=== PATIENT | female | born 1945 | race Caucasian/White ===

== ENCOUNTER → 2018-03-01 12:32 | Outpatient (CLI) | payer MEDICARE, OTHER, SELFPAY ==
--- NOTE | 2018-03-01 12:36 | ECHOD_ITS ---
Reason For Study: dyspnea/SOB Procedure This was a 2D Doppler, Color Flow transthoracic echocardiogram. Exam performed in department. Left Ventricle Normal size and thickness. The estimated ejection fraction is 65 %. Normal diastology for age. No regional wall motion abnormalities noted. Right Ventricle Normal size and thickness. Normal systolic function. Atria Normal left atrium. Normal right atrium. Normal atrial septum. Mitral Valve The mitral valve is structurally normal. No prolapse or stenosis seen. Mild (1+) posteriorly directed mitral valve insufficiency. Tricuspid Valve Normal tricuspid valve. Mild (1+) tricuspid valve insufficiency. Right ventricular systolic pressure estimated to be 29 mmHg. Aortic Valve Trisinus/trileaflet aortic valve. Mild diffuse aortic valve thickening. There is no aortic stenosis. Pulmonic Valve Normal pulmonic valve. Great Vessels Normal aortic root. Normal arch. Normal inferior vena cava. Inferior vena cava collapse with sniff. Pericardium/Pleural No pericardial effusion. MMode/2D Measurements & Calculations LVIDd: 4.6 cm IVSd: 0.94 cm Ao root diam: 2.7 cm LVIDs: 2.9 cm LVPWd: 0.95 cm LA dimension: 3.5 cm RVDd: 2.3 cm FS: 37.8 % LAV(MOD-bp): 49.1 ml LA A4 area: 16.8 cm2 RA A4 area: 13.9 cm2 LAV(MOD-bp) Indexed: 32.1 ml/m2 LAV(MOD-sp2): 44.2 ml LAV(MOD-sp4): 48.9 ml Doppler Measurements & Calculations Lat Peak E' Thierry: 10.5 cm/sec Med Peak E' Thierry: 8.7 cm/sec MV V2 max: 119.6 cm/sec MV max P.7 mmHg MV V2 mean: 60.0 cm/sec MV mean P.7 mmHg MV V2 VTI: 32.9 cm Ao V2 max: 142.0 cm/sec LV V1 max: 91.0 cm/sec PA V2 max: 82.6 cm/sec Ao max P.7 mmHg LV V1 max P.3 mmHg TR max thierry: 253.1 cm/sec TR max P.7 mmHg Interpretation Summary The estimated ejection fraction is 65 %. Normal diastology for age. Mild (1+) posteriorly directed mitral valve insufficiency. Mild (1+) tricuspid valve insufficiency. Right ventricular systolic pressure estimated to be 29 mmHg. There is no comparison study available. Ordering Physician: Ayo Pineda Referring Physician: NO PCP Performed By: Cristina Adam RDCS, RVT
== END ==
PROVIDERS: Visit Provider Internal Medicine Cardiovascular Disease
DX: R06.02 Shortness of breath (principal); M06.9 Rheumatoid arthritis, unspecified
CPT/HCPCS: 93306

== ENCOUNTER → 2018-03-02 12:04 | Outpatient (CLI) | payer MEDICARE, OTHER, SELFPAY ==
--- NOTE | 2018-03-02 12:49 | STE_ITS ---
Reason For Study: Dyspnea; Atrial Fibrillation Stress Results Protocol: Margarito Protocol Maximum Predicted HR: 149 bpm Target HR: 127 bpm% Max imum Predicted HR: 105 % DurationHeart Rate Stage (mm:ss) (bpm) BPCom ment Baseline 67 120/82 No Chest Pain Margarito Protocol Stage I 3:00 11 6 136/70No Chest Pain Margarito Protocol Stage II 3:00 13 1 156/78No Chest Pain; Mild Dyspnea Margarito Protocol Stage III 2:00 15 7 160/72No Chest Pain; Moderate Dyspnea Recovery 83 118/70 No Chest Pain Stress Duration: 8:00 mm:ss Maximum Stress HR: 157 bpmM ETS: 10 Baseline Echocardiogram Findings The estimated ejection fraction is 60 %. Stress Echo Wall motion Data Resting WMIntermediate WMStress WM Resting Wall Motion Wall Motion Stress No regional wall motion Mid-Anterior : Mildly abnormalities noted. hypokinetic. EKG Data Normal intervals are noted. The patient exercised according to the regular Margarito protocol for a total duration of 8:00. The maximum heart rate attained was 160 beats per minute. This was 107% of maximum predicted heart rate. The patient exercised into stage 3 of the Margarito protocol. The stress ECG displays diffuse abnormal ST segments. No clinical angina was noted. Interpretation Summary The estimated ejection fraction is 60 %. Abnormal, adequate, treadmill echocardiogram. Positive for ischemia by EKG and echocardiographic criteria. No anginal symptoms noted. Rare PVCs and ventricular couplets noted during exercise. The patient developed [address] segment depression along the inferior lateral leads at peak exercise which normalized by about 59 seconds into recovery. In addition the patient appeared to have mid anterior hypokinesis seen in 3 views on echocardiography. Test was terminated did due to dyspnea. Final LVEF around 65%. Ordering Physician: Ayo Pineda Referring Physician: Ayo Pineda Performed By: Heath Richmond RCS
[2018-03-02 13:23] LABS: AST(SGOT) 22 U/L (15-37); Alanine Aminotransfer ALT/SGPT 27 U/L (13-56); Albumin, Serum 3.5 g/dL (3.2-5.0); Alkaline Phosphatase 65 U/L (45-117); Bilirubin, Direct 0.18 mg/dL (0.00-0.30); Cholesterol 185 mg/dL (200); Globulin 3.7 g/dL (2.2-4.2); High Density Lipoprotein 55 mg/dL; Protein, Total 7.2 g/dL (6.4-8.2); Thyroid Stim Hormone (TSH) 1.19 uIU/mL (0.358-3.74); Triglycerides 100 mg/dL; Very Low Density Lipoprotein 20 mg/dL (5-40)
== END ==
PROVIDERS: Visit Provider Internal Medicine Cardiovascular Disease
DX: I48.91 Unspecified atrial fibrillation (principal); E78.5 Hyperlipidemia, unspecified; R06.02 Shortness of breath
CPT/HCPCS: 36415; 80061; 80076; 84443; 93017; 93350

== ENCOUNTER 2018-03-05 10:16 | Observation (INO) | payer MEDICARE, OTHER, SELFPAY ==
--- NOTE | 2018-03-03 15:15 | RAD_ITS ---
STUDY: X-RAY CHEST REASON FOR EXAM: Female, 72 years old. Abnormal stress test. Preop TECHNIQUE: Frontal and lateral views of the chest. COMPARISON: None. FINDINGS: The lungs are clear and expanded. There is no demonstrated pleural abnormality. Normal size heart. Normal mediastinum and celia. Normal visualized pulmonary arteries. Normal visualized aortic arch and descending thoracic aorta. There are diffuse degenerative changes of the visualized thoracic spine. Normal visualized ribs, clavicles, and shoulders. There is no demonstrated abnormality of the visualized soft tissue structures of the upper abdomen. RAD/Chest PA and Lateral IMPRESSION: No acute chest disease. Electronically Signed: Gume Crenshaw MD at 15:07 EDT , Service support ,
[2018-03-03 15:16] LABS: Hematocrit 38.7 % (37-47); Hemoglobin 13.1 g/dl (12.0-15.0); Mean Corp Hgb Conc 33.9 g/gl (32-36); Mean Corpuscular Hgb 32.2 pg (27.0-32.0); Mean Corpuscular Volume 95.1 fL (81-99); Mean Platelet Vol. 9.8 fl (6.2-12.0); Platelet Count 312 K/mm3 (150-450); RBC Distribution Width CV 13.8 % (11.6-14.6); Red Blood Count 4.07 M/mm3 (4.2-5.4); White Blood Count 7.1 K/mm3 (4.4-11.0)
[2018-03-03 15:17] LABS: Prothrombin Time (Protime)PT. 13.5 SECONDS (11.7-14.9)
[2018-03-03 15:18] LABS: Partial Thromboplast Time 28.7 Seconds (24.1-36.2)
[2018-03-03 15:25] LABS: Scan Indicated on CBC? Y/N NO
[2018-03-03 15:37] LABS: Anion Gap 9 (5-15); BUN 19 mg/dL (7-18); BUN/Creat Ratio 25.5 RATIO (10-20); Calcium,Total 9.3 mg/dL (8.5-10.1); Chloride 106 mmol/L (98-107); Creatinine, Serum 0.75 mg/dL (0.55-1.02); EST Glomerular Filtration Rate 81 mL/min (>60); Est Glom Filt Rate - Afr Amer 98 mL/min (>60); Glucose 90 mg/dL (74-106); Sodium Level 142 mmol/L (136-145)
[2018-03-04 08:25] VITALS: BMI 25.6
[2018-03-05] VITALS (22 sets, daily range): BP systolic 97–151; BP diastolic 40–81; PULSE 55–75; RESP 16–24; TEMP 36.3–37.1; O2SAT 95–99; BMI 26.4; BMI 25.6
--- NOTE | 2018-03-05 10:26 | CL.I_ITS ---
Patient Name: JIM MAN Study Date: 03/05/2018 Performing: Ayo Pineda MD Ht: 59.05 inches 150 cm : 1945 Wt: 127.87 lbs 58 kg Age: 72 Gender: female BSA: 1.53 Amended PROCEDURE(S) PERFORMED EJ42-HGT/COR/LV CLINICAL PROFILE AND CO-MORBIDITIES Indications: New Onset Angina <= 2 months Heart Failure: None Stress/Imaging Stress Echocardiogram: Yes Result: Positive Intermediate Risk Stress Echocardiogra m: Positive Intermediate Risk Angina Classification Anginal Classification w/in 2 Weeks: CCS III CAD Presentations: Unstable angina. Comorbidities/Risk Factors: Hypertension Dyslipidemia CONCLUSIONS Single vessel CAD of the LAD and DIAG#1 Normal LV size, wall motion,and systolic function Successful PTCA/JENNIFER of the mid LAD with a 2.25 x 12 Promus Synergy, post dilated proximally with a 2. 5 x 8 NC, followed just distal to stent with another 2.25 x 12 Promus Synergy; 85%-->0%, no dissectio n. Successful PCI with PTCA to the ostial DIAG#1 with a 1.5 and 2.0 Emerge balloon; 85%-->50%, slight re trograde dissection that does not affect flow. No additional stenting performed due to AMY III flow , lack of angina and acute angle of DIAG branch. Successful Mynx closure RECOMMENDATIONS Referred for immediate PCI Highly recommend quitting all tobacco products Follow up with primary sleep lab technologist Risk factor modification ASA Indefinitley Plavix for at least 12 months Routine post interventional care Refer for Outpatient Cardiac Rehab Manual sheath removal per protocol Pt will need to postpone Gyne surgery at least 6 months, preferably 1 year. DESCRIPTION OF PROCEDURE The patient arrived to the procedure lab. The risks and benefits of the procedure as well as a full d escription of our services here and lack of surgical backup were fully explained to the patient and/o r their significant other prior to the catheterization. The Timeout was completed, verifying the john ect patient and procedure. The patient's procedural site was prepped and draped in the usual fashion. Local anesthetic was given subcutaneously to right groin region with Lidocaine 2%. Using a modified Seldinger technique, arterial access was obtained via the right femoral artery, a 4Fr sheath was inse rted. Left Coronary Artery selective angiography was performed in multiple views using a 4 Fr. JL5 c atheter. Right Coronary Artery selective angiography was then performed in multiple views using a 4 F r. 3DRC catheter. Left Ventriculography was performed in ENCINAS projection using a 4 Fr. Pigtail cathete r. LV to AO pullback pressures were then recorded Arterial sheath was exchanged for a 6 Fr Sheath. EBU 3.5 Guide catheter was inserted and engaged into the LCA. BMW Guide wire was advanced to the LAD Angiogram performed pre balloon dilatation. emerge 2 .00x8 Balloon catheter was inserted. PTCA balloon inflated at 8 atms for 10 secs. Angiogram performed post balloon dilatation. BMW Guide wire was advanced to the 1st Diagonal. emerge 2.00x8 Balloon cath eter was inserted. PTCA balloon inflated at 6 atms for 7 secs. PTCA balloon inflated at 6 atms for 11 secs. Angiogram performed post balloon dilatation. synergy 2.25x12 Drug Eluting stent was inserted. Angiogram performed post stent deployment. nc emerge 2.50x8 Balloon catheter was inserted. PTCA ballo on inflated at 12 atms for 10 secs. Angiogram performed post balloon dilatation. synergy 2.25x12 Drug Eluting stent was inserted. 1st BMW Guide wire was repositioned to the 1st Diagonal Angiogram perfor med post stent deployment. emerge 2.00x8 Balloon catheter was inserted. emerge push 1.50x8 Balloon ca theter was inserted. PTCA balloon inflated at 8 atms for 14 secs. Angiogram performed post balloon di latation. Contrast was injected through the sheath and the Right Iliac and Femoral artery were assess ed for possible closure device. The arterial sheath was pulled and a Mynx closure device was deploye d for hemostasis CORONARY ANGIOGRAPHY DOMINANCE: Right Dominant LEFT HEART ASSESSMENT Left Ventricular Ejection Fraction: by LV Gram 65 % Normal Left Ventricular systolic function Normal Left Ventricular End Diastolic Pressure Normal LV wall motion LEFT MAIN: No significant disease noted LEFT ANTERIOR DECENDING ARTERY: PROX LAD: Mild luminal irregularities less than 30%, Moderate calcification MID LAD: 85 % Stenosis DIAGONAL 1: Ostial - 85 % Stenosis CIRCUMFLEX ARTERY: No significant disease noted RIGHT CORONARY ARTERY: Angiographically normal INTERVENTION INFORMATION LESION SITE: LAD (Mid) Lesion Complexity: High/C, lesion at bifurcation: Yes, thrombus present: No, lesion length: 24 mm, cu lprit lesion: Yes Pre Stenosis: 85 % Pre intervention AMY flow: 3 PROCEDURE: Drug Eluting Stent with pre and post dilatation Post Stenosis: 0 % Post intervention AMY flow: 3 Lesion Devices: Aguilar .014 BMW [place] Straight 190cm Medtronic 6 Fr EBU3.5 100cm Guide Catheter Sriram Sci EMERGE MR 2.00x08 BALLOON Sriram Sci Synergy MR JENNIFER 2.25x12 Sriram Sci NC EMERGE MR 2.50x08 BALLOON Sriram Sci Synergy MR JENNIFER 2.25x12 LESION SITE: 1st Diagonal (Ostial) Lesion Complexity: High/C, lesion at bifurcation: Yes, thrombus present: No, lesion length: 8 mm, cul prit lesion: No Pre Stenosis: 85 % Pre intervention AMY flow: 3 PROCEDURE: Balloon Angioplasty Post Stenosis: 50 % Post intervention AMY flow: 3 Lesion Devices: Sriram Sci EMERGE MR 2.00x08 BALLOON Aguilar .014 BMW [place] Straight 190cm Sriram Sci EMERGE PUSH MR 1.50x08 BALLOON COMPLICATIONS No Complications PROCEDURE MEDICATIONS Versed 1 mg IV Oxygen: 2 L/min via nasal cannula Heparin 5000 unit(s) IV 03/05/2018 09:30:39 Nitro 200 mcg IC 03/05/2018 09:20:39 Nitro 200 mcg IC 03/05/2018 09:20:39 Nitro 200 mcg IC 03/05/2018 09:37:20 Nitro 200 mcg IC 03/05/2018 09:50:40 IV Bolus: .9 NaCl 300ml total 03/05/2018 09:32:11 SUMMARY OF HEMODYNAMIC DATA Time AIR REST ECG 08:11:45 AO 130/62 (92) SA 09:18:00 LV 110/4, 14 09:26:33 LV 112/4, 11 09:26:40 LV 106/5, 14 09:27:57 LVp 109/3, 14 09:28:01 AOp 114/59 (82) 09:28:06 Signed By Ayo Pineda MD On 03/05/2018 10:26:20 Ayo Pineda MD
[2018-03-05 10:36] LABS: ACT Activated Clotting Time 186 sec (74-137)
--- NOTE | 2018-03-05 10:41 | EKG12_ITS ---
Test Reason : POST PCI Blood Pressure : / mmHG Vent. Rate : 056 BPM Atrial Rate : 056 BPM P-R Int : 142 ms QRS Dur : 078 ms QT Int : 456 ms P-R-T Axes : 061 053 042 degrees QTc Int : 440 ms Sinus bradycardia Low voltage QRS Borderline ECG Confirmed by DARY PAZ, VAMSI ([id number]), marketing editor CHAS MERCEDES ([id number] on 03/12/2018 3:02:28 PM Referred By: Ayo Pineda Confirmed By:VAMSI FOOTE MD
[2018-03-05] MEDS: 0.9% Normal Saline 1,000 ML 150 ML IV (11:21)
--- NOTE | 2018-03-05 11:23 | CRPHASE1 ---
Patient Data/Charges Stamp Analyst:: Ayo Pineda Risk Factors/Lifestyle Smoking Status: Never smoker Hx Hypertension: Yes Hx Diabetes Mellitus Type 1: No Hx Diabetes Mellitus Type 2: No Hx Dyslipidemia: No Hx Obesity: No Height: 1.5 m Weight:: 57.6 kg BMI: 25.6 Post-Menopausal: Yes Family History: Family History (Last Reviewed 02/16/18 @ 11:09 by Elvira Almendarez) Father CAD (coronary artery disease) Mother Cancer Past Cardiac Illness: Arrhythmias - a fib Phase I Education Given On:: [place], Nutrition, Antiplatelet medication, CHF, Smoking cessation, Diabetes - Type I, Diabetes - Type II Issues Affecting Care:: None Knowledge of Condition:: Yes Medical/Surgical History [place]:: No Angina:: Yes CAD:: Yes Pulmonary:: No COPD:: No Asthma:: No Diabetes:: No Dyslipidemia:: Yes Arrhythmias:: Yes - history of a fib PE:: No DVT:: No PVD:: No Arthritis:: Yes - rheumatoid Cancer:: No Renal:: No Thyroid:: No Depression:: No Anxiety:: No PTCA:: Yes ICD:: No Pacemaker:: No Discharge/Home/Social Eval Marital Status:
--- NOTE | 2018-03-05 11:27 | CRPHASE1_ITS ---
Patient Data/Charges Pin Drafter Operator:: Ayo Pineda Risk Factors/Lifestyle Smoking Status: Never smoker Hx Hypertension: Yes Hx Diabetes Mellitus Type 1: No Hx Diabetes Mellitus Type 2: No Hx Dyslipidemia: No Hx Obesity: No Height: 1.5 m Weight:: 57.6 kg BMI: 25.6 Post-Menopausal: Yes Family History: Family History (Last Reviewed 02/16/18 @ 11:09 by Elvira Almendarez) Father CAD (coronary artery disease) Mother Cancer Past Cardiac Illness: Arrhythmias - a fib Phase I Education Given On:: [place], Nutrition, Antiplatelet medication, CHF, Smoking cessation, Diabetes - Type I, Diabetes - Type II Issues Affecting Care:: None Knowledge of Condition:: Yes Medical/Surgical History [place]:: No Angina:: Yes CAD:: Yes Pulmonary:: No COPD:: No Asthma:: No Diabetes:: No Dyslipidemia:: Yes Arrhythmias:: Yes - history of a fib PE:: No DVT:: No PVD:: No Arthritis:: Yes - rheumatoid Cancer:: No Renal:: No Thyroid:: No Depression:: No Anxiety:: No PTCA:: Yes ICD:: No Pacemaker:: No Discharge/Home/Social Eval Marital Status:
--- NOTE | 2018-03-05 11:30 | CRPH1.INST_ITS ---
General Education CAD and cardiac anatomy and function:: Not instructed Explanation of diagnoses and procedures:: Not instructed Sign/Symptoms of [place]:: Not instructed Antiplatelet therapy: Needs reinforcement Proper use of NTG-SL: Not instructed Emergency procedures and activation of EMS: Not instructed Compliance of all prescribed medications: Needs reinforcement, Not instructed Smoking Nicotine/Smoking Response Code:: Not instructed Dyslipidemia Patient Dyslipidemia Risk Factors Are:: Total Cholesterol - 185, Triglycerides - 100, HDL - 55, LDL - 110 Dyslipidemia Response Code:: Not instructed Overweight/Obesity Patient Overweight/Obesity Risk Factors Are:: BMI Normal [24-29 & > 65 years old ] Overweight/Obesity:: Not instructed Hypertension Patient Hypertension Risk Factors Are:: No documented hx of HTN Heart Disease Heart Disease Response Code:: Not instructed Diabetes Patient Diabetes Risk Factors Are:: No documented hx of diabetes Metabolic Syndrome Metabolic Syndrome Response Code:: Not instructed Sedentary Sedentary Response Code:: Not instructed Stress Stress Response Code:: Not instructed
--- NOTE | 2018-03-05 15:45 | PCM.DC.CCA ---
Discharge Diet: Low fat/ Low Cholesterol Discharge Activity: Return to Normal Activity May shower in (days): 1 Lifting Restrictions: 10 pounds and also avoid any pushing or pulling for 3 days after your test. Call your doctor if your incision/area has: Continuous Slow Oozing, Sudden Increased Bleeding, Increased Pain/ Swelling, Foul Smelling Discharge, Swelling at the incision site Call your doctor if you observe: Fever of 101 or Higher, Shortness of breath, Chest pain Remove Dressing in (days):: 1 Additional Dressing/Incision Instructions:: Keep the dressing (bandage) on until the next morning. You may then shower, but do not take a tub bath for 5 days after your test. It is normal to have some tenderness and discomfort at the puncture site. Sometimes bruising also occurs. However, if pain, numbness, or coldness occurs below the puncture site (in your leg, toes, arms or fingers) call your doctor at once. You may have a small, marble sized knot at the puncture site. This is normal. Do not rub it. It will go away in 4-6 weeks. Bleeding can occur from the area where the puncture was done. Blood may spurt or drip from the site. If blood spurts, apply pressure right away to stop bleeding and call 911. Although rare, bleeding into the tissue (hematoma) can also occur. If this happens, a large, firm area goose egg under the skin will appear. If any of these occur, lie down as flat as you can and have someone apply firm pressure to the cath site with a gauze pad or a clean washcloth for 10-15 minutes. Call 911 or go to the Emergency Department. Additional Instructions: We will rediscuss surgical clearance in 6 months. We would prefer you to stay on the plavix for at least one year before holding it for any reason At your next OV we will talk about cardiac rehab. Allergies/Adverse Reactions: Allergies Sulfa (Sulfonamide Antibiotics) Allergy (Unknown, Verified 02/16/18 11:12) unknown Medications to take at Discharge aspirin 81 mg tablet,delayed release 81 mg PO DAILY 02/12/18 folic acid 1 mg tablet 1 mg PO DAILY 02/12/18 methotrexate sodium 2.5 mg tablet 15 mg PO TU tab 02/12/18 estradiol 0.01% (0.1 mg/gram) vaginal cream 1 g VAGINAL DAILY 02/16/18 metoprolol tartrate 25 mg tablet 25 mg PO BID #60 tab 02/16/18 prednisone 5 mg tablet 5 mg PO DAILY PRN 02/16/18 rosuvastatin 20 mg tablet 20 mg PO .COMPLEX 02/16/18 Estradiol [Estrace Vaginal Cream] 1 gm VAGINAL DAILY cream.appl 03/05/18 clopidogrel 75 mg tablet 75 mg PO .COMPLEX #30 tab 03/05/18 Orders to be completed after discharge: Phase II, Outpatient Cardiac Rehab Location: None Selected Primary Care Physician: Care Physician,No Primary [Primary Care Provider] - Test Results: Test results from this visit will be discussed in further detail at your follow-up appointment, if applicable. Please Follow Up With: Ayo Pineda MD When: 03/19 at 11AM Proposed Discharge Date: 03/06/18 Cardiac Rehabilitation Info Cardiac Rehabilitation Program Information: Cardiac Rehabilitation is important for patients like you who are recovering from a heart problem. Cardiac rehabilitation programs are recognized as integral to the continued care of the patient with coronary heart disease. The cardiac rehabilitation program is designed to optimize a patient's physical, psychological, and social functioning. Health child day care teacher work in cardiac rehabilitation programs and assist you with getting the treatments you need to get stronger and healthier - like exercise, healthy eating habits, and medications. Cardiac rehabilitation has been show to help people with heart problems live longer and have better life enjoyment than people who do not go to cardiac rehabilitation. Please contact the Cardiac Rehabilitation Program at [facility] at in two weeks if you have not heard from them.
--- NOTE | 2018-03-05 15:48 | DCINST_ITS ---
Discharge Diet: Low fat/ Low Cholesterol Discharge Activity: Return to Normal Activity May shower in (days): 1 Lifting Restrictions: 10 pounds and also avoid any pushing or pulling for 3 days after your test. Call your doctor if your incision/area has: Continuous Slow Oozing, Sudden Increased Bleeding, Increased Pain/ Swelling, Foul Smelling Discharge, Swelling at the incision site Call your doctor if you observe: Fever of 101 or Higher, Shortness of breath, Chest pain Remove Dressing in (days):: 1 Additional Dressing/Incision Instructions:: Keep the dressing (bandage) on until the next morning. You may then shower, but do not take a tub bath for 5 days after your test. It is normal to have some tenderness and discomfort at the puncture site. Sometimes bruising also occurs. However, if pain, numbness, or coldness occurs below the puncture site (in your leg, toes, arms or fingers) call your doctor at once. You may have a small, marble sized knot at the puncture site. This is normal. Do not rub it. It will go away in 4-6 weeks. Bleeding can occur from the area where the puncture was done. Blood may spurt or drip from the site. If blood spurts, apply pressure right away to stop bleeding and call 911. Although rare, bleeding into the tissue (hematoma) can also occur. If this happens, a large, firm area goose egg under the skin will appear. If any of these occur, lie down as flat as you can and have someone apply firm pressure to the cath site with a gauze pad or a clean washcloth for 10-15 minutes. Call 911 or go to the Emergency Department. Additional Instructions: We will rediscuss surgical clearance in 6 months. We would prefer you to stay on the plavix for at least one year before holding it for any reason At your next OV we will talk about cardiac rehab. Allergies/Adverse Reactions: Allergies Sulfa (Sulfonamide Antibiotics) Allergy (Unknown, Verified 02/16/18 11:12) unknown Medications to take at Discharge aspirin 81 mg tablet,delayed release 81 mg PO DAILY 02/12/18 folic acid 1 mg tablet 1 mg PO DAILY 02/12/18 methotrexate sodium 2.5 mg tablet 15 mg PO TU tab 02/12/18 estradiol 0.01% (0.1 mg/gram) vaginal cream 1 g VAGINAL DAILY 02/16/18 metoprolol tartrate 25 mg tablet 25 mg PO BID #60 tab 02/16/18 prednisone 5 mg tablet 5 mg PO DAILY PRN 02/16/18 rosuvastatin 20 mg tablet 20 mg PO .COMPLEX 02/16/18 Estradiol [Estrace Vaginal Cream] 1 gm VAGINAL DAILY cream.appl 03/05/18 clopidogrel 75 mg tablet 75 mg PO .COMPLEX #30 tab 03/05/18 Orders to be completed after discharge: Phase II, Outpatient Cardiac Rehab Location: None Selected Primary Care Physician: Care Physician,No Primary [Primary Care Provider] - Test Results: Test results from this visit will be discussed in further detail at your follow- up appointment, if applicable. Please Follow Up With: Ayo Pineda MD When: 03/19 at 11AM Proposed Discharge Date: 03/06/18 Cardiac Rehabilitation Info Cardiac Rehabilitation Program Information: Cardiac Rehabilitation is important for patients like you who are recovering from a heart problem. Cardiac rehabilitation programs are recognized as integral to the continued care of the patient with coronary heart disease. The cardiac rehabilitation program is designed to optimize a patient's physical, psychological, and social functioning. Health career coach work in cardiac rehabilitation programs and assist you with getting the treatments you need to get stronger and healthier - like exercise, healthy eating habits, and medications. Cardiac rehabilitation has been show to help people with heart problems live longer and have better life enjoyment than people who do not go to cardiac rehabilitation. Please contact the Cardiac Rehabilitation Program at [facility] at in two weeks if you have not heard from them.
[2018-03-05] MEDS: Atorvastatin Calcium 20 MG Tablet PO (20:46)
[2018-03-05] MEDS: Acetaminophen 325 MG Tablet 650 MG PO (20:46)
[2018-03-05] MEDS: Metoprolol Tartrate 25 MG Tablet PO (20:46)
[2018-03-06] VITALS (12 sets, daily range): BP systolic 98–154; BP diastolic 43–79; PULSE 57–97; RESP 13–24; TEMP 36.2–36.9; O2SAT 93–100
[2018-03-06 04:58] LABS: Hematocrit 33.5 % (37-47); Hemoglobin 11.3 g/dl (12.0-15.0); Mean Corp Hgb Conc 33.7 g/gl (32-36); Mean Corpuscular Hgb 32.5 pg (27.0-32.0); Mean Corpuscular Volume 96.3 fL (81-99); Mean Platelet Vol. 9.7 fl (6.2-12.0); Platelet Count 251 K/mm3 (150-450); RBC Distribution Width SD 47.2 fl (35.1-43.9); Red Blood Count 3.48 M/mm3 (4.2-5.4); White Blood Count 7.6 K/mm3 (4.4-11.0)
[2018-03-06 04:59] LABS: Scan Indicated on CBC? Y/N NO
[2018-03-06 05:11] LABS: Anion Gap 7 (5-15); BUN 13 mg/dL (7-18); BUN/Creat Ratio 20.7 RATIO (10-20); Calcium,Total 8.4 mg/dL (8.5-10.1); Chloride 112 mmol/L (98-107); Creatinine, Serum 0.63 mg/dL (0.55-1.02); EST Glomerular Filtration Rate 99 mL/min (>60); Est Glom Filt Rate - Afr Amer 120 mL/min (>60); Estimated Creatinine Clearance 46.92 ml/min; Glucose 105 mg/dL (74-106); Potassium 4.4 mmol/L (3.5-5.1); Sodium Level 144 mmol/L (136-145)
[2018-03-06] MEDS: Folic Acid 1 MG Tablet PO (07:52)
[2018-03-06] MEDS: Metoprolol Tartrate 25 MG Tablet PO (09:44)
[2018-03-06] MEDS: Aspirin E.C. 81 MG Tablet PO (09:44)
[2018-03-06] MEDS: Clopidogrel Bisulfate 75 MG Tablet PO (09:44)
--- NOTE | 2018-03-06 09:52 | PCM.DC.BLA ---
Discharge Summary Date of Admission: 03/05/18 Date of Discharge: 03/06/18 Summary: Final diagnoses: 1. Coronary artery disease Procedures performed: 1. Coronary angiography 2. Drug-eluting stent placement to the mid left anterior descending artery Hospital course: Patient had an abnormal stress test. She was therefore brought for coronary angiography. Coronary angiography revealed tight left anterior descending artery lesion. Subsequently percutaneous intervention was performed with placement of 2 drug-eluting stents. Excellent results were noted. Overnight the patient did well. No angina or shortness of breath. Her groin appears stable with no hematoma. Vital signs are stable. Medications: Please see discharge instructions. Final disposition: Discharged home in stable condition.
--- NOTE | 2018-03-06 10:41 | EKG12_ITS ---
Test Reason : AM EKG Blood Pressure : / mmHG Vent. Rate : 060 BPM Atrial Rate : 060 BPM P-R Int : 134 ms QRS Dur : 082 ms QT Int : 440 ms P-R-T Axes : 061 049 030 degrees QTc Int : 440 ms Normal sinus rhythm Low voltage QRS Borderline ECG Confirmed by DARY PAZ, VAMSI ([id number]), manuscript editor CHAS MERCEDES ([id number]) on 03/12/2018 3:01:38 PM Referred By: Ayo Pineda Confirmed By:VAMSI FOOTE MD
== END 2018-03-06 10:31 | disposition home or self-care (01) ==
PROVIDERS: Admitting Provider Internal Medicine Cardiovascular Disease; Visit Provider Internal Medicine Cardiovascular Disease
DX: I25.110 Atherosclerotic heart disease of native coronary artery with unstable angina pectoris (principal); R94.39 Abnormal result of other cardiovascular function study; E78.5 Hyperlipidemia, unspecified; I10 Essential (primary) hypertension; M06.9 Rheumatoid arthritis, unspecified; Z79.899 Other long term (current) drug therapy; Z79.82 Long term (current) use of aspirin; I48.2 Chronic atrial fibrillation; Z23 Encounter for immunization
CPT/HCPCS: 36415; 71046; 80048; 85027; 85347; 85610; 85730; 92921; 92928; 93005; 93458; 96360; 96361; 99152; 99153; 99218; C1760; G0008; J7030; J7040; Q9967; 90686; C1725; C1769; C1874; C1887; C1894; C9600; G0378; G0379

== ENCOUNTER → 2018-03-19 12:08 | Outpatient (CLI) | payer MEDICARE, OTHER, SELFPAY ==
[2018-03-05 11:27] VITALS: BMI 25.6
[2018-03-19 12:37] LABS: Absolute Lymphocyte Count 2.52 X10^3/ul (0.83-4.51); Absolute Neutrophil Count 4.2 X10^3/uL (2.0-7.7); Basophil# 0.08 X10^3/uL; Eosinophil# 0.23 X10^3/uL; Hematocrit 37.5 % (37-47); Hemoglobin 12.4 g/dl (12.0-15.0); Lymphocyte # 2.52 X10^3/ul (4.0); Lymphocyte % 32.5 % (19-41); Mean Corp Hgb Conc 33.1 g/gl (32-36); Mean Corpuscular Volume 96.6 fL (81-99); Mean Platelet Vol. 9.7 fl (6.2-12.0); Monocyte# 0.69 X10^3/uL; Monocyte% 8.9 % (0-10); Neutrophil # 4.23 X10^3/uL (2.7-7.7); Neutrophil % 54.5 % (47-70); POSITIVE COUNT NO; POSITIVE DIFFERENTIAL NO; POSITIVE MORPHOLOGY NO; Platelet Count 337 K/mm3 (150-450); RBC Distribution Width CV 13.8 % (11.6-14.6); RBC Distribution Width SD 47.2 fl (35.1-43.9); Red Blood Count 3.88 M/mm3 (4.2-5.4); White Blood Count 7.8 K/mm3 (4.4-11.0)
== END ==
PROVIDERS: Referring Provider Physician Assistant Medical; Visit Provider Physician Assistant Medical
DX: R07.9 Chest pain, unspecified (principal)
CPT/HCPCS: 36415; 85025

== ENCOUNTER → 2018-03-23 12:26 | Outpatient (CLI) | payer MEDICARE, OTHER, SELFPAY ==
[2018-03-05 11:27] VITALS: BMI 25.6
--- NOTE | 2018-03-23 12:28 | RAD_ITS ---
STUDY: X-RAY CHEST REASON FOR EXAM: Female, 72 years old. Cough. TECHNIQUE: 2 views, PA and lateral projections. COMPARISON: Chest 03/03/2018. FINDINGS: No tubes identified. The lungs appear clear of active focal pulmonary consolidation, air bronchograms, large pleural effusion, pneumothorax or abnormally dilated pulmonary vascularity and also appear well expanded. There is no demonstrated pleural abnormality identified. Borderline enlarged heart, heart size may be mildly accentuated by mild rotation. Trachea near midline. Nonacute mediastinum and celia with numerous mostly subcarinal small calcified lymph nodes seen. Normal visualized pulmonary arteries. Normal visualized aortic arch and descending thoracic aorta. Nonacute visualized moderate to severe degenerative thoracic spine noted. Mild scoliosis apex right seen lower thoracic spine, may be positional. Normal visualized ribs, clavicles and shoulders. There is no demonstrated abnormality of the visualized soft tissue structures of the upper abdomen. No subdiaphragmatic free air seen grossly. RAD/Chest PA and Lateral IMPRESSION: Nonacute appearing x-ray examination of the chest. No finding of active focal pulmonary consolidation air bronchograms identified. Borderline cardiomegaly, heart size may be accentuated by mild rotation and scoliosis as described. Clinical correlation recommended. Electronically Signed: Carlos Sukhi, at 13:34 EDT Tel , Service support ,
== END ==
PROVIDERS: Referring Provider Physician Assistant Surgical; Visit Provider Physician Assistant Surgical
DX: R05 Cough (principal)
CPT/HCPCS: 71046

== ENCOUNTER → 2018-03-26 13:05 | Outpatient (CLI) | payer MEDICARE, OTHER, SELFPAY ==
[2018-03-05 11:27] VITALS: BMI 25.6
--- NOTE | 2018-03-26 13:08 | PCM.CR.ITP ---
General Information - General Information Admitting Diagnosis: PCI w/coronary stent 03/05/2018 - Education/Goals Barriers to Learning: Vision Impairment Individual Counseling: Initial Assessment: High Blood Pressure, Hypertension Cardiac Rehabilitation Goals: 1. Maintain the individual as the primary focus of care. 2. To improve the patient's quality of life. 3. Identification of cardiac risk factors and provide cardiac risk factor management. 4. Enhance the psychosocial status of the patient. 5. Reconditioning enough to allow the patient to resume customary activities. 6. Control symptoms of cardiac disease Scale for measuring improvement of personal goals: Enter appropriate number in Comments. 2 = Unchanged. 3 = Slightly Better. 4 = Moderate Improvement. 5 = Met my Goal Personal Goals: Initial Assessment: Improve energy level, Get back to work, or to resume activities faster, Improve knowledge of cardiac disease, Improve muscle strength and endurance, Control risk factors (learn risk factor modification) Exercise - Initial Assessment - Visit Date of Eval: 03/26/18 - established ITP start 03/29/2018 Session #:: 0 - Stages of Change Stages of Change:: Action - Exercise Prescription Mode:: Treadmill, Rower, NuStep Angina with exercise?: No Target Heart Rate:: 111-118 - Hypertension Do any of the following apply?: Yes, Medication Resting Blood Pressure:: 120/60 - Intervention Home Exercise/Activity Goal:: Moderate Exercise 30 min/day x 5 days/wk - Education Goals:: Warm-up, RPE ALINE Scale, S/S, Safe Exercise, Self-Monitoring - Exercise Program Goals Exercise Program Goals: Aerobic Activity >30 min Nutrition - Initial Assessment - Program Goals Nutrition Program Goals: LDL <70. Total Cholesterol <200. HDL >45. Triglycerides <150. HgbA1C <7%. BMI <25 - Visit Date of Assessment:: 03/26/18 - Stages of Change Stages of Change:: Action - Diabetes Diabetes:: No Insulin: No Do you monitor your blood sugar at home?: No - Weight Management Height: 5 ft Weight:: 128 lb Body Fat %:: 25 - Intervention Referral to dietitian:: No Referral to Diabetic Clinic:: No Will attend diet classes:: Yes - Education Gave educational materials for:: Healthy eating Tobacco - Initial Assessment - Program Goals Tobacco Program Goals: Complete smoking cessation. Attend education classes. Improve Knowledge Test score - Stage of Change Stages of Change:: Action - Learning Barriers Learning Barriers: Vision, Ready to Learn - Family Support Do you have family support?: Yes - Tobacco Use Tobacco Use: Non-smoker Do you use smokeless tobacco?: No - Intervention Smoking Cessation Referral:: No Education Schedule Given:: Yes - Education Gave educational material for:: Coronary artery disease, Risk factors, Sexuality, Medical compliance, Cardiac A&P, Angina signs & symptoms Psychosocial - Initial Assess - Target Goals Target Goals: Assess presence or absence of depression. Using a valid screening tool, maximizes coping skills. Positive support system - Stages of Change Stages of Change:: Action - Psychosocial Test Tool Used:: HANDS Depression Questionnaire - Intervention PS - Interventions: Yes Attend Stress Management Classes, Yes Uses Stress Management Skills, No Referral to Mental Health, No Referral to [facility] Case Management, No Referral to Physician - Education Gave educational materials for:: Coping techniques, Signs & symptoms of depression, Stress management, Relaxation techniques - Patient/Program Goal Preventative Medication(s):: Aspirin, Clopidogrel, Beta luisa, Statin/lipid - Assistive Devices Assistive Devices:: None Fall Risk Assessed:: Yes Patient Health Questionnaire Initial Assessment 1. Little interest or pleasure in doing things: Not at all 2. Feeling down, depressed, or hopeless: Not at all 3. Trouble falling or staying asleep, or sleeping too much: Not at all 4. Feeling tired or having little energy: Not at all 5. Poor appetite or overeating: Not at all 6. Feeling bad about yourself -- or that you are a failure or have let yourself or your family down: Not at all 7. Trouble concentrating on things, such as reading the newspaper or watching television: Not at all 8. Moving or speaking so slowly that other people could have noticed. Or the opposite - being so fidgety or restless that you have been moving around a lot more than usual: Not at all 9. Thoughts that you would be better off , or of hurting yourself in some way: Not at all How difficult have these problems made it for you to do your work, take care of things at home, or get along with other people?: Not difficult at all Total Score: 0 TRAY-Q SV Test - Statements CAD is a disease of the arteries in the heart: False Examples of risk factors for heart disease: True Angina is chest pain or discomfort: True The benefits of resistance training include: True Eating more meat and dairy products: False Anti-platelet medications such as aspirin are important: True The only effective way to manage stress: False An exercise warm-up slowly increases heart rate: True Prepared, processed foods usually have high sodium: True Depression is common after a heart attack: True The statin medications lower cholesterol: True To control blood pressure, lower the amount of sodium: True If someone gets chest discomfort during walking: False Transfats are partially hydrogenated vegetable oils: True Sleep apnea that is not treated increases the risk: False To control cholesterol, one should become a vegetarian: False Someone knows if he/she is exercising at the right level: True Diabetes cannot be prevented with exercise & health eating: False Stress is a large risk for heart attack: True A diet that can help lower blood pressure is rich in: True - Total Score Total Correct Responses: 20 Self-Efficacy Initial Assessment We would like to know how confident you are in doing certain activities. Please select your confidence level for:: Select your confidence level for the following using the scale 1-10 where 1 is not at all confident and 10 is totally confident. Your score is the average of all 6 responses. Fatigue: How confident are you that you can keep the fatigue caused by your disease from interfering with the things you want to do? Select Number: 7 Physical Discomfort or Pain: How confident are you that you can keep the physical discomfort or pain of your disease from interfering with the things you want to do? Select Number: 5 Emotional Distress: How confident are you that you can keep the emotional distress caused by your disease from interfering with the things you want to do? Select Number: 6 Other Symptoms or Health Problems: How confident are you that you can keep other symptoms or health problems from interfering with the things you want to do? Select Number: 4 Different Tasks and Activities: How confident are you that you can do the different tasks and activities needed to manage your health condition so as to reduce your need to see a doctor? Select Number: 5 Medication: How confident are you that you can do things other than just taking medication to reduce how much your illness affects your everyday life? Select Number: 6 Total Score:: 5 Nutrition Survey - Nutrition Survey Instructions Scoring Instructions: Scoring is as follows: Yes = 1 points. No = 0 point. Patient score that is >/=12 is considered to be at potential nutritional risk and could benefit from a referral to a registered dietitian. - Nutrition Survey Initial Have you lost >10 lbs over the past 2 months without trying?: No Are you following a special diet at home for diabetes, low fat, or low salt?: No Are you interested in meeting with a dietitian for help understanding your diet?: Yes Do you eat less than 3 meals a day?: Yes Do you eat fatty meats (suárez, sausage, ribs, etc), fried foods, desserts, large amounts of salad dressings, margarine, butter, or cheese most days?: No Do you have food allergies? [Enter types in comment field]: No Do you eat in restaurants more than 3 times a week?: Yes Do you season food with salt, seasoning salt, or garlic salt?: Yes Do you used canned, boxed, frozen meals, or soups, seasoning packets?: Yes Total Score:: 5
--- NOTE | 2018-03-26 13:09 | PCM.CR.HP2 ---
CR - History & Physical - General Arrival date:: 03/26/18 Arrival time:: 13:09 Date of Referral:: 03/19/18 Date of CR Evaluation:: 03/26/18 Referring Physician: Dr. Ayo Pineda Primary Diagnosis: PCI w/coronary stent placement - History of Present Cardiac Event Onset Date: Enter Onset Date of cardiac illnesses in Comment field below PTCA or coronary stenting:: Yes - 03/05/2018 Type of Symptoms:: intermittent chest pain, shortness ofbreath during activities. Cardiac testing reveiled abnormal stress echocardiogram and subsequent heart cath was performed. Interventions with present event:: Echo, Echo stress , and heart cath Were there any complications?: none - Medications Home Medications: Ambulatory Orders Medication Instructions Recorded folic acid 1 mg tablet 1 mg PO DAILY 02/12/18 methotrexate sodium 2.5 mg tablet 15 mg PO TU tab 02/12/18 estradiol 0.01% (0.1 mg/gram) 1 g VAGINAL DAILY 02/16/18 vaginal cream metoprolol tartrate 25 mg tablet 25 mg PO BID #60 tab 02/16/18 prednisone 5 mg tablet 5 mg PO DAILY PRN 02/16/18 rosuvastatin 20 mg tablet 20 mg PO .COMPLEX 02/16/18 Estradiol [Estrace Vaginal Cream] 1 gm VAGINAL DAILY cream.appl 03/05/18 clopidogrel 75 mg tablet 75 mg PO .COMPLEX #30 tab 03/05/18 Aspirin E.C. [Ecotrin] 81 mg PO DAILY tab 03/06/18 Atorvastatin Calcium [Lipitor] 20 mg PO QHS tab 03/06/18 nitroglycerin 0.4 mg sublingual 0.4 mg SUBLINGUAL Q5-15M PRN #25 03/19/18 tablet tab nitroglycerin 0.4 mg sublingual 0.4 mg SUBLINGUAL Q5-15M PRN #25 03/19/18 tablet tab azithromycin 250 mg tablet See Rx Instructions PO .COMPLEX #6 03/23/18 tab - Allergies Allergies/Adverse Reactions: Allergies Sulfa (Sulfonamide Antibiotics) Allergy (Unknown, Verified 03/23/18 12:17) unknown - Sleep Disorder Evaluation Hx of Sleep Apnea: No Do you snore loudly (louder than talking or can be heard through closed doors)?: No Do you often feel tired/ fatigued/ sleepy during daytime?: Yes Has anyone observed you stop breathing during sleep?: No History of Hypertension (for STOP score): Yes STOP Results: Positive Advanced Directives - Advanced Directives Power of Butadiene Convertor Operator: Yes Living Will: Yes Advance Directives Information Provided: No Advance Directives on File: Yes - Yes DNR Order?:: No Past Medical History - Past Medical Illness Medical History: Past Medical History (Last Reviewed 03/23/18 @ 12:18 by [place]) Chest pain (Acute) R07.9 Atherosclerotic heart disease of [place] coronary artery without angina pectoris (Chronic) Onset Date: 03/05/18 I25.10 JENNIFER to mid LAD with a 2.25 X 12 Promus Synergy, followed just distally with another 2.25 X 12 Promus Synergy; PCI to diagonal 1. Dyspnea on exertion (Acute) R06.09 Abnormal stress echo (Acute) R94.39 Rheumatoid arthritis (Chronic) M06.9 Hyperlipidemia (Chronic) E78.5 Atrial fibrillation (Chronic) I48.91 Meniere disease (Chronic) H81.09 - Past Surgical History Surgical History: Past Surgical History (Last Reviewed 03/23/18 @ 12:18 by [place]) Stented coronary artery (Chronic) Z95.5 JENNIFER to mid LAD with a 2.25 X 12 Promus Synergy, followed just distally with another 2.25 X 12 Promus Synergy; PCI to diagonal 1. History of carpal tunnel release of both wrists Onset Date: ~2012 Z98.890 - Family History Summary Family History: Family History (Last Updated 03/26/18 @ 13:14 by Gray Angeles, ACCOUNTING OFFICER, MEDICAL CONCIERGE, BS) Father CAD (coronary artery disease) Mother Cancer COPD (chronic obstructive pulmonary disease) Social History - Smoking History Smoking Status: Never smoker Hx Tobacco Use: No Hx Smoking Exposure: No - Alcohol Use Alcohol Usage: No - Substance Abuse Hx Substance Use: No - Occupation Occupation (List type of work in comments):: Retired - Hobbies, Recreation, Social Activities Hobbies: Sewing - knitting, Bingo and Shuffle Board., Other Recreational Activities: I am able to engage in all my recreational activities Social Environment - Status Marital Status: - Current Living Arrangements Living Environment:: Spouse - significant other - Children How many children do you have?: 2 Do any of your children live nearby?: No - both in [place] - Safety Do you feel safe in your surroundings?: Yes - Assistance Do you need any assistance at home?: none Review of Systems - Review of Systems Hints: Right click = Denies ([place]ash). Left click = Reports ([place]) Review of Present Symptoms: Reports: Shortness of Breath with Exertion - still occasionally gets short of breath, Fatigue, Heart Arrhythmia/Irregularities - chronic histopry of atrial fibrillation, Appetite - Normal, Sleep - Normal. Denies: Shortness of Breath at Rest, Dizziness/Lightheadedness, Appetite - Special Diet - Pain Is Patient Pain Free?: Yes Pain Location: none Pain Level: 0/10 Risk Factor Assessment - Chief Complaint Chief Complaint: Patient is a 72 yr old female patient who presented to Dr. Pineda for ongoing cardiac symptoms. She was examined and went through some cardiac testing and eventually had two stents and ballooning procedure done here at [facility]. - Vital Signs Temperature: 98.7 F Respiratory Rate: 16 Pulse Ox: 97 Blood Pressure: 120/60 Nailbeds:: pink - Pulse Pulse Rate: 59 - Hypertension Blood Pressure Sitting - Left Arm: 120/60 - Diabetes Nutrition Referral for Diabetes: No - Obesity Height: 5 ft Weight:: 128 lb Weight in Pounds: 128.0 lbs Weight Source: Standing Scale Body Mass Index (BMI): 25.0 Nutritional Referral for Obesity: No - Physical Inactivity Physical Inactivity: Recreational activity - walking dog a couple of miles a day. - Risk Stratification Risk Guidelines: Lowest Risk: Risk Factor for Smoking, Risk Factor for Dyslipidemia, Risk Factor for Diabetes, Risk Factor for Obesity, Risk Factor for Hypertension, Risk Factor for Sedentary Lifestyle, Risk Factor for Depression - For Smoking Smoking Risk Guidelines: Smoking Low Risk: None or quit greater than 6 months ago. Smoking Moderate Risk: Smoker or quit 6 months or less ago. Smoking High Risk: Smoker - For Dyslipidemia Dyslipidemia Risk Guidelines: Low Risk: Moderate Risk: High Risk: 15-25% fat 25.1-29% fat >/= 30% fat. <7% sat fat 7-9% sat fat >9% sat fat. <150 mg chol 150-299 mg chol >/= 300 mg chol. LDL <100 LDL 100-129 LDL >/= 130. Chol/HDL ratio <5.0 Chol/HDL ratio 5.0-6.0 Chol/HDL ratio >6.0. Triglycerides <100 Triglycerides 100-149 Triglycerides >/= 150 - For Diabetes Mellitus Diabetes Risk Guidelines: Diabetes Low Risk: HgA1c <6.5% and/or FBG <120. Diabetes Moderate Risk: HgA1c 6.6-7.9% and/or FBG 120-180. Diabetes High Risk: HgA1c >/= 8% and/or FBG >180 - For Obesity/Overweight Obesity/Overweight Risk Guidelines: Obesity Low Risk: BMI <25.0. Obesity Moderate Risk: BMI 25-29.9. Obesity High Risk: BMI >/= 30.0 - For Hypertension Hypertension Risk Guidelines: Hypertension Low Risk: Systolic <120 and Diastolic <80. Hypertension Moderate Risk: Systolic 120-139 and Diastolic 80-89. Hypertension High Risk: Systolic >/= 140 and Diastolic >/= 90 - For Sedentary Lifestyle Sedentary Lifestyle Risk Guidelines: Sedentary Lifestyle Low Risk: >/= 1,500 kcal/week. Sedentary Lifestyle Moderate Risk: 700-1,499 kcal/week. Sedentary Lifestyle High Risk: < 700 kcal/week - For Depression Depression Risk Guidelines: Depression Low Risk: Not clinically depressed. Depression Moderate Risk: Mildly depressed. Depression High Risk: Clinically depressed - Family History Family History: Family History (Last Updated 03/26/18 @ 13:14 by Gray Angeles, ACCOUNTING OFFICER, MEDICAL CONCIERGE, BS) Father CAD (coronary artery disease) Mother Cancer COPD (chronic obstructive pulmonary disease) Motivation - Motivation to Participate On a scale of 1 to 10, how prepared are you to commit to attending program?: 9 What do you see as barriers to successfully being able to complete the program?: getting used to a routine alarm clock! What do you see as the benefits of succesfully completing the program? In other words, what do you hope to get out of participating in the program?: getting better Are there issues you are dealing with that will interfere with completing the program?: none Do you have a spouse or signficant other, family or friends who will help support you to complete the program?: yes
--- NOTE | 2018-03-26 13:13 | CR.HP_ITS ---
CR - History & Physical - General Arrival date:: 03/26/18 Arrival time:: 13:09 Date of Referral:: 03/19/18 Date of CR Evaluation:: 03/26/18 Referring Physician: Dr. Ayo iPneda Primary Diagnosis: PCI w/coronary stent placement - History of Present Cardiac Event Onset Date: Enter Onset Date of cardiac illnesses in Comment field below PTCA or coronary stenting:: Yes - 03/05/2018 Type of Symptoms:: intermittent chest pain, shortness ofbreath during activities. Cardiac testing reveiled abnormal stress echocardiogram and subsequent heart cath was performed. Interventions with present event:: Echo, Echo stress , and heart cath Were there any complications?: none - Medications Home Medications: Ambulatory Orders Medication Instructions Recorded folic acid 1 mg tablet 1 mg PO DAILY 02/12/18 methotrexate sodium 2.5 mg tablet 15 mg PO TU tab 02/12/18 estradiol 0.01% (0.1 mg/gram) 1 g VAGINAL DAILY 02/16/18 vaginal cream metoprolol tartrate 25 mg tablet 25 mg PO BID #60 tab 02/16/18 prednisone 5 mg tablet 5 mg PO DAILY PRN 02/16/18 rosuvastatin 20 mg tablet 20 mg PO .COMPLEX 02/16/18 Estradiol [Estrace Vaginal Cream] 1 gm VAGINAL DAILY cream.appl 03/05/18 clopidogrel 75 mg tablet 75 mg PO .COMPLEX #30 tab 03/05/18 Aspirin E.C. [Ecotrin] 81 mg PO DAILY tab 03/06/18 Atorvastatin Calcium [Lipitor] 20 mg PO QHS tab 03/06/18 nitroglycerin 0.4 mg sublingual 0.4 mg SUBLINGUAL Q5-15M PRN #25 03/19/18 tablet tab nitroglycerin 0.4 mg sublingual 0.4 mg SUBLINGUAL Q5-15M PRN #25 03/19/18 tablet tab azithromycin 250 mg tablet See Rx Instructions PO .COMPLEX #6 03/23/18 tab - Allergies Allergies/Adverse Reactions: Allergies Sulfa (Sulfonamide Antibiotics) Allergy (Unknown, Verified 03/23/18 12:17) unknown - Sleep Disorder Evaluation Hx of Sleep Apnea: No Do you snore loudly (louder than talking or can be heard through closed doors)?: No Do you often feel tired/ fatigued/ sleepy during daytime?: Yes Has anyone observed you stop breathing during sleep?: No History of Hypertension (for STOP score): Yes STOP Results: Positive Advanced Directives - Advanced Directives Power of Cyber Transport Systems Specialist: Yes Living Will: Yes Advance Directives Information Provided: No Advance Directives on File: Yes - Yes DNR Order?:: No Past Medical History - Past Medical Illness Medical History: Past Medical History (Last Reviewed 03/23/18 @ 12:18 by [place]) Chest pain (Acute) R07.9 Atherosclerotic heart disease of [place] coronary artery without angina pectoris (Chronic) Onset Date: 03/05/18 I25.10 JENNIFER to mid LAD with a 2.25 X 12 Promus Synergy, followed just distally with another 2.25 X 12 Promus Synergy; PCI to diagonal 1. Dyspnea on exertion (Acute) R06.09 Abnormal stress echo (Acute) R94.39 Rheumatoid arthritis (Chronic) M06.9 Hyperlipidemia (Chronic) E78.5 Atrial fibrillation (Chronic) I48.91 Meniere disease (Chronic) H81.09 - Past Surgical History Surgical History: Past Surgical History (Last Reviewed 03/23/18 @ 12:18 by [place]) Stented coronary artery (Chronic) Z95.5 JENNIFER to mid LAD with a 2.25 X 12 Promus Synergy, followed just distally with another 2.25 X 12 Promus Synergy; PCI to diagonal 1. History of carpal tunnel release of both wrists Onset Date: ~2012 Z98.890 - Family History Summary Family History: Family History (Last Updated 03/26/18 @ 13:14 by Gray Angeles, ENGINE INSPECTOR, DEVICE REPAIR TECHNICIAN, BS) Father CAD (coronary artery disease) Mother Cancer COPD (chronic obstructive pulmonary disease) Social History - Smoking History Smoking Status: Never smoker Hx Tobacco Use: No Hx Smoking Exposure: No - Alcohol Use Alcohol Usage: No - Substance Abuse Hx Substance Use: No - Occupation Occupation (List type of work in comments):: Retired - Hobbies, Recreation, Social Activities Hobbies: Sewing - knitting, Bingo and Shuffle Board., Other Recreational Activities: I am able to engage in all my recreational activities Social Environment - Status Marital Status: - Current Living Arrangements Living Environment:: Spouse - significant other - Children How many children do you have?: 2 Do any of your children live nearby?: No - both in [place] - Safety Do you feel safe in your surroundings?: Yes - Assistance Do you need any assistance at home?: none Review of Systems - Review of Systems Hints: Right click = Denies ([place]). Left click = Reports ([place]) Review of Present Symptoms: Reports: Shortness of Breath with Exertion - still occasionally gets short of breath, Fatigue, Heart Arrhythmia/Irregularities - chronic histopry of atrial fibrillation, Appetite - Normal, Sleep - Normal. Denies: Shortness of Breath at Rest, Dizziness/Lightheadedness, Appetite - Special Diet - Pain Is Patient Pain Free?: Yes Pain Location: none Pain Level: 0/10 Risk Factor Assessment - Chief Complaint Chief Complaint: Patient is a 72 yr old female patient who presented to Dr. Pineda for ongoing cardiac symptoms. She was examined and went through some cardiac testing and eventually had two stents and ballooning procedure done here at [facility]. - Vital Signs Temperature: 98.7 F Respiratory Rate: 16 Pulse Ox: 97 Blood Pressure: 120/60 Nailbeds:: pink - Pulse Pulse Rate: 59 - Hypertension Blood Pressure Sitting - Left Arm: 120/60 - Diabetes Nutrition Referral for Diabetes: No - Obesity Height: 5 ft Weight:: 128 lb Weight in Pounds: 128.0 lbs Weight Source: Standing Scale Body Mass Index (BMI): 25.0 Nutritional Referral for Obesity: No - Physical Inactivity Physical Inactivity: Recreational activity - walking dog a couple of miles a day. - Risk Stratification Risk Guidelines: Lowest Risk: Risk Factor for Smoking, Risk Factor for Dyslipidemia, Risk Factor for Diabetes, Risk Factor for Obesity, Risk Factor for Hypertension, Risk Factor for Sedentary Lifestyle, Risk Factor for Depression - For Smoking Smoking Risk Guidelines: Smoking Low Risk: None or quit greater than 6 months ago. Smoking Moderate Risk: Smoker or quit 6 months or less ago. Smoking High Risk: Smoker - For Dyslipidemia Dyslipidemia Risk Guidelines: Low Risk: Moderate Risk: High Risk: 15-25% fat 25.1-29% fat >/= 30% fat. <7% sat fat 7-9% sat fat >9% sat fat. <150 mg chol 150-299 mg chol >/= 300 mg chol. LDL <100 LDL 100-129 LDL >/= 130. Chol/HDL ratio <5.0 Chol/HDL ratio 5.0-6.0 Chol/HDL ratio >6.0. Triglycerides <100 Triglycerides 100- 149 Triglycerides >/= 150 - For Diabetes Mellitus Diabetes Risk Guidelines: Diabetes Low Risk: HgA1c <6.5% and/or FBG <120. Diabetes Moderate Risk: HgA1c 6.6-7.9% and/or FBG 120-180. Diabetes High Risk: HgA1c >/= 8% and/or FBG >180 - For Obesity/Overweight Obesity/Overweight Risk Guidelines: Obesity Low Risk: BMI <25.0. Obesity Moderate Risk: BMI 25-29.9. Obesity High Risk: BMI >/= 30.0 - For Hypertension Hypertension Risk Guidelines: Hypertension Low Risk: Systolic <120 and Diastolic <80. Hypertension Moderate Risk: Systolic 120-139 and Diastolic 80-89. Hypertension High Risk: Systolic >/= 140 and Diastolic >/= 90 - For Sedentary Lifestyle Sedentary Lifestyle Risk Guidelines: Sedentary Lifestyle Low Risk: >/= 1,500 kcal/week. Sedentary Lifestyle Moderate Risk: 700-1,499 kcal/week. Sedentary Lifestyle High Risk: < 700 kcal/week - For Depression Depression Risk Guidelines: Depression Low Risk: Not clinically depressed. Depression Moderate Risk: Mildly depressed. Depression High Risk: Clinically depressed - Family History Family History: Family History (Last Updated 03/26/18 @ 13:14 by Gray Angeles, ENGINE INSPECTOR, DEVICE REPAIR TECHNICIAN, BS) Father CAD (coronary artery disease) Mother Cancer COPD (chronic obstructive pulmonary disease) Motivation - Motivation to Participate On a scale of 1 to 10, how prepared are you to commit to attending program?: 9 What do you see as barriers to successfully being able to complete the program?: getting used to a routine alarm clock! What do you see as the benefits of succesfully completing the program? In other words, what do you hope to get out of participating in the program?: getting better Are there issues you are dealing with that will interfere with completing the program?: none Do you have a spouse or signficant other, family or friends who will help support you to complete the program?: yes
[2018-03-26 13:22] VITALS: BP 120/60; PULSE 59; RESP 16; TEMP 37.1; O2SAT 97; BMI 25.0
[2018-03-26 13:56] VITALS: BP 120/60
== END ==
PROVIDERS: Referring Provider Internal Medicine Cardiovascular Disease; Visit Provider Internal Medicine Cardiovascular Disease
DX: Z95.5 Presence of coronary angioplasty implant and graft (principal); I25.10 Atherosclerotic heart disease of native coronary artery without angina pectoris

== ENCOUNTER → 2018-03-30 10:42 | Outpatient (CLI) | payer MEDICARE, OTHER, SELFPAY ==
[2018-03-05 11:27] VITALS: BMI 25.6
== END ==
PROVIDERS: Visit Provider Obstetrics & Gynecology
DX: Z01.818 Encounter for other preprocedural examination (principal)
CPT/HCPCS: J7120; J2405

== ENCOUNTER 2018-04-14 11:30 | Outpatient (RCR) | payer MEDICARE, OTHER, SELFPAY ==
[2018-03-05 11:27] VITALS: BMI 25.6
== END 2018-04-14 23:59 ==
LOC: CR 11:30
PROVIDERS: Referring Provider Internal Medicine Cardiovascular Disease; Visit Provider Internal Medicine Cardiovascular Disease
DX: Z95.5 Presence of coronary angioplasty implant and graft (principal); I25.10 Atherosclerotic heart disease of native coronary artery without angina pectoris; I48.91 Unspecified atrial fibrillation
CPT/HCPCS: 93798

== ENCOUNTER → 2018-04-21 09:43 | Outpatient (CLI) | payer MEDICARE, OTHER, SELFPAY ==
[2018-03-05 11:27] VITALS: BMI 25.6
--- NOTE | 2018-04-21 10:15 | RAD_ITS ---
STUDY: X-RAY - PELVIS AND RIGHT HIP REASON FOR EXAM: Female, 72 years old. The patient has a history of arthritis. Right hip pain. TECHNIQUE: Radiological exam, hip, unilateral, with pelvis when performed; 2 or 3 views. COMPARISON: None. FINDINGS: There is a non-specific bowel gas pattern. Normal visualized soft tissue structures. There is narrowing with cortical sclerosis and osteophyte formation of the sacroiliac joint consistent with degenerative osteoarthritic changes. Normal bilateral superior and inferior pubic rami. There are degenerative changes of the pubic symphysis with articular narrowing and sclerosis. Normal bilateral ischial tuberosities. Normal visualized femoral head. Normal acetabulum. There is mild articular joint space narrowing of the hip. RAD/HIP, UNI W/ Pelvis 2-3 Views IMPRESSION: Mild degree of degenerative changes of the hip joint. Electronically Signed: Houston Jerome MD at 11:05 EST Tel [phone], Service support ,
[2018-04-21 11:52] LABS: Absolute Neutrophil Count 2.6 X10^3/uL (2.0-7.7); Basophil# 0.07 X10^3/uL; Basophil% 1.3 % (0-1); Eosinophil# 0.16 X10^3/uL; Eosinophils% 3.1 % (0-5); Hematocrit 39.7 % (37-47); Lymphocyte % 34.5 % (19-41); Mean Corp Hgb Conc 32.7 g/gl (32-36); Mean Corpuscular Hgb 32.3 pg (27.0-32.0); Mean Corpuscular Volume 98.8 fL (81-99); Mean Platelet Vol. 10.1 fl (6.2-12.0); Monocyte# 0.57 X10^3/uL; Monocyte% 10.9 % (0-10); Neutrophil # 2.61 X10^3/uL (2.7-7.7); POSITIVE COUNT NO; POSITIVE DIFFERENTIAL NO; POSITIVE MORPHOLOGY NO; Platelet Count 302 K/mm3 (150-450); RBC Distribution Width CV 13.6 % (11.6-14.6); RBC Distribution Width SD 47.8 fl (35.1-43.9); Red Blood Count 4.02 M/mm3 (4.2-5.4); White Blood Count 5.2 K/mm3 (4.4-11.0)
[2018-04-21 12:07] LABS: Erythrocyte Sedimentation Rate 16 mm/hr (0-30)
[2018-04-21 12:21] LABS: ALB/GLOB Ratio 1.1 RATIO (0.9-2.4); AST(SGOT) 21 U/L (15-37); Alanine Aminotransfer ALT/SGPT 28 U/L (13-56); Alkaline Phosphatase 75 U/L (45-117); Anion Gap 7 (5-15); BUN 21 mg/dL (7-18); Calcium,Total 8.6 mg/dL (8.5-10.1); Chloride 108 mmol/L (98-107); Creatinine, Serum 0.64 mg/dL (0.55-1.02); EST Glomerular Filtration Rate 98 mL/min (>60); Est Glom Filt Rate - Afr Amer 118 mL/min (>60); Globulin 3.8 g/dL (2.2-4.2); Glucose 87 mg/dL (74-106); Potassium 3.9 mmol/L (3.5-5.1); Protein, Total 7.8 g/dL (6.4-8.2); Rheumatoid Factor < 10.0 IU/mL (<15); Sodium Level 141 mmol/L (136-145)
[2018-04-23 10:32] LABS: ANTINUCLEAR ANTIBODIES DIRECT Negative (Negative)
[2018-04-23 10:33] LABS: CCP IgG Antibodies 12 units (0-19); HEPATITIS B SURFACE AG Negative (Negative); Hep B Surface Antibodies Non Reactive (.); Hep C Antibodies 0.2 s/co ratio (0.0-0.9)
== END ==
PROVIDERS: Referring Provider Internal Medicine Rheumatology; Visit Provider Internal Medicine Rheumatology
DX: M06.09 Rheumatoid arthritis without rheumatoid factor, multiple sites (principal); M18.0 Bilateral primary osteoarthritis of first carpometacarpal joints; M16.11 Unilateral primary osteoarthritis, right hip; H81.03 Meniere's disease, bilateral; I48.0 Paroxysmal atrial fibrillation; I25.10 Atherosclerotic heart disease of native coronary artery without angina pectoris; E78.5 Hyperlipidemia, unspecified
CPT/HCPCS: 36415; 73502; 80053; 85025; 85652; 86038; 86140; 86200; 86431; 86706; 86803; 87340

== ENCOUNTER → 2018-05-03 09:59 | Outpatient (CLI) | payer MEDICARE, OTHER, SELFPAY ==
[2018-03-05 11:27] VITALS: BMI 25.6
[2018-04-30 11:17] VITALS: BMI 26.0
[2018-05-03 11:49] LABS: AST(SGOT) 25 U/L (15-37); Alanine Aminotransfer ALT/SGPT 37 U/L (13-56); Albumin, Serum 3.7 g/dL (3.2-5.0); Alkaline Phosphatase 69 U/L (45-117); Bilirubin, Direct 0.15 mg/dL (0.00-0.30); Cholesterol 181 mg/dL (200); Globulin 3.6 g/dL (2.2-4.2); High Density Lipoprotein 52 mg/dL; Protein, Total 7.3 g/dL (6.4-8.2); Triglycerides 102 mg/dL; Very Low Density Lipoprotein 20 mg/dL (5-40)
== END ==
PROVIDERS: Referring Provider Internal Medicine Cardiovascular Disease; Visit Provider Internal Medicine Cardiovascular Disease
DX: I25.10 Atherosclerotic heart disease of native coronary artery without angina pectoris (principal); E78.5 Hyperlipidemia, unspecified; R07.9 Chest pain, unspecified
CPT/HCPCS: 36415; 80061; 80076

== ENCOUNTER 2018-05-14 13:00 | Outpatient (RCR) | payer MEDICARE, OTHER, SELFPAY ==
[2018-03-05 11:27] VITALS: BMI 25.6
== END 2018-05-14 23:59 ==
LOC: CR 13:00
PROVIDERS: Referring Provider Internal Medicine Cardiovascular Disease; Visit Provider Internal Medicine Cardiovascular Disease
DX: Z95.5 Presence of coronary angioplasty implant and graft (principal); I25.10 Atherosclerotic heart disease of native coronary artery without angina pectoris; I48.0 Paroxysmal atrial fibrillation; M06.09 Rheumatoid arthritis without rheumatoid factor, multiple sites; M81.0 Age-related osteoporosis without current pathological fracture; M16.11 Unilateral primary osteoarthritis, right hip; E78.5 Hyperlipidemia, unspecified; H81.03 Meniere's disease, bilateral
CPT/HCPCS: 36415; 73502; 80053; 85025; 85652; 86038; 86140; 86200; 86431; 86706; 86803; 87340; 93798

== ENCOUNTER → 2018-05-27 08:54 | Outpatient (CLI) | payer MEDICARE, OTHER, SELFPAY ==
[2018-03-05 11:27] VITALS: BMI 25.6
[2018-04-30 11:17] VITALS: BMI 26.0
--- NOTE | 2018-05-27 08:57 | STE_ITS ---
Version 2 Reason For Study: Chest Pain Stress Results Protocol: Stress Echocardiogram Maximum Predicted HR: 149 bpm Target HR: 127 bpm % Maximum Predicted HR: 111 % DurationHeart Rate Stage (mm:ss) (bpm) BP Comment BASELINE 3:00 69 132/80 NATALIYA PROTOCOL- STAGE 1 3:00 116 134/78 NATALIYA PROTOCOL- STAGE 2 3:00 131 142/80SL SOB NATALIYA PROTOCOL- STAGE 3 3:00 166 148/82SOB RECOVERY 88 110/68 Stress Duration: 12:00 mm:ss Maximum Stress HR: 166 bpm Baseline Echocardiogram Findings The estimated ejection fraction is 60 %. Stress Echo Wall motion Data Resting WM Intermediate WM Stress WM Resting Wall Motion Wall Motion Stress No regional wall motion No regional wall motion abnormalities noted. abnormalities noted. EKG Data Normal intervals are noted. The patient exercised according to the regular Nataliya protocol for a total duration of 9:00. The maximum heart rate attained was 166 beats per minute. This was 111% of maximum predicted heart rate. The patient exercised into stage 4 of the Nataliya protocol. No clinical angina was noted. No arrhythmias noted. At peak exercise, upsloping ST changes only were noted, which did not meet the criteria for ischemia. Interpretation Summary The estimated ejection fraction is 60 %. Normal, adequate, treadmill echocardiogram. Negative for ischemia by EKG and echocardiographic criteria. No anginal symptoms noted. Rare PAC noted. Average exercise capacity for age. Appropriate blood pressure response to exercise. Test terminated due to shortness of breath and attainment of target heart rate. Final LVEF of 70%. No complications. Ordering Physician: Ayo Pineda Referring Physician: Ayo Pineda Performed By: Cristina Adam, RDCS, RVT
--- OUTSIDE RECORDS SUMMARY | 2018-07-13 02:16 | XMS RPT_ITS ---
:1945 Author Organization OHIP Support Name Relationship Address Phone JARRELL SY Unavailable [address] + [place] [address] R Unavailable Unavailable Unavailable VIBBERT, JOHN Unavailable [address] + [place] [address] YOSSI, JARRELL Unavailable [address] + [place] [address] R Unavailable Unavailable Unavailable VIBBERT, JOHN Unavailable [address] + [place] [address] YOSSI, JARRELL Unavailable [address] + [place] [address] R Unavailable Unavailable Unavailable VIBBERT, JOHN Unavailable Unavailable + [facility], JARRELL Unavailable [address] + [place] [address] R Unavailable Unavailable Unavailable VIBBERT, JOHN Unavailable Unavailable + [facility], JARRELL Unavailable [address] + [place] [address] R Unavailable Unavailable Unavailable VIBBERT, JOHN Unavailable Unavailable + [facility], JARRELL Unavailable [address] + [place] [address] R Unavailable Unavailable Unavailable VIBBERT, JOHN Unavailable Unavailable + [facility], JARRELL Unavailable [address] + [place] [address] R Unavailable Unavailable Unavailable VIBBERT, JOHN Unavailable Unavailable + [facility], JARRELL Unavailable [address] + [place] [address] R Unavailable Unavailable Unavailable VIBBERT, JOHN Unavailable Unavailable + [place] [place] [facility], JARRELL Unavailable [address] + [place] [address] R Unavailable Unavailable Unavailable VIBBERT, JOHN Unavailable Unavailable + [place] [place] [facility], JARRELL Unavailable [address] + [place] [address] R Unavailable Unavailable Unavailable VIBBERT, JOHN Unavailable Unavailable + [place] [place] [facility], JARRELL Unavailable [address] + [place] [address] R Unavailable Unavailable Unavailable VIBBERT, JOHN Unavailable Unavailable + [place] [place] [facility], JARRELL Unavailable [address] + [place] [address] R Unavailable Unavailable Unavailable VIBBERT, JOHN Unavailable Unavailable + [place] [place] [facility], JARRELL Unavailable [address] + [place] [address] R Unavailable Unavailable Unavailable VIBBERT, JOHN Unavailable . + [facility] . YOSSI, JARRELL Unavailable [address] + [place] [address] R Unavailable Unavailable Unavailable VIBBERT, JOHN Unavailable Unavailable + [place] [place] [facility], JARRELL Unavailable [address] + [place] [address] R Unavailable Unavailable Unavailable VIBBERT, JOHN Unavailable [address] + [place] [address] YOSSI, JARRELL Unavailable [address] + [place] [address] R Unavailable Unavailable Unavailable VIBBERT, JOHN Unavailable [address] + [place] [address] YOSSI, JARRELL Unavailable [address] + [place] [address] R Unavailable Unavailable Unavailable VIBBERT, JOHN Unavailable [address] + [place] [address] YOSSI, JARRELL Unavailable [address] + [place] [address] R Unavailable Unavailable Unavailable VIBBERT, JOHN Unavailable [address] + [place] [address] YOSSI, JARRELL Unavailable [address] + [place] [address] R Unavailable Unavailable Unavailable VIBBERT, JOHN Unavailable [address] + [place] [address] YOSSI, JARRELL Unavailable [address] + [place] [address] R Unavailable Unavailable Unavailable VIBBERT, JOHN Unavailable [address] + [place] [address] YOSSI, JARRELL Unavailable Unavailable + [place] [address] R Unavailable Unavailable Unavailable VIBBERT, JOHN Unavailable Unavailable + [place] [address] YOSSI, JARRELL Unavailable 1 + [place] [address] R Unavailable Unavailable Unavailable VIBBERT, JOHN Unavailable 1 + [place] [address] YOSSI, JARRELL Unavailable Unavailable + R Unavailable Unavailable Unavailable VIBBERT, JOHN Unavailable Unavailable + YOSSI, JARRELL Unavailable Unavailable + R Unavailable Unavailable Unavailable VIBBERT, JOHN Unavailable Unavailable + YOSSI, JARRELL Unavailable [address] + [place] [address] R Unavailable Unavailable Unavailable VIBBERT, JOHN Unavailable [address] + [place] [address] YOSSI, JARRELL Unavailable 1 + [place] [address] R Unavailable Unavailable Unavailable VIBBERT, JOHN Unavailable 1 + [place] [address] YOSSI, JARRELL Unavailable Unavailable + [place] [address] R Unavailable Unavailable Unavailable VIBBERT, JOHN Unavailable Unavailable + [place] [address] YOSSI, JARRELL Unavailable [address] + [place] [address] R Unavailable Unavailable Unavailable VIBBERT, JOHN Unavailable [address] + [place] [address] YOSSI, JARRELL Unavailable Unavailable + [place] [address] R Unavailable Unavailable Unavailable VIBBERT, JOHN Unavailable Unavailable + [place] [address] YOSSI, JARRELL Unavailable [address] + [place] [address] R Unavailable Unavailable Unavailable VIBBERT, JOHN Unavailable [address] + [place] [address] R Unavailable Unavailable Unavailable VIBBERT, JOHN Unavailable 1 + [place] [address] Care Team Providers Name Role Phone Ayo East Attending Unavailable Ayo East Referring Unavailable Ayo East Attending Unavailable Ayo East Referring Unavailable Primay Care Physicia, No Primary Care Unavailable Referred, Self Attending Unavailable Primay Care Physicia, No Primary Care Unavailable Ayo East Attending Unavailable Ayo East Referring Unavailable Ayo East Attending Unavailable Ayo East Referring Unavailable Primay Care Physicia, No Primary Care Unavailable Yara Caceres Attending Unavailable Yara Caceres Referring Unavailable Primay Care Physicia, No Primary Care Unavailable Ayo East Attending Unavailable Primay Care Physicia, No Referring Unavailable Juventino Sandy Attending Unavailable Primay Care Physicia, No Primary Care Unavailable Ayo East Attending Unavailable Primay Care Physicia, No Primary Care Unavailable Ayo East Referring Unavailable Ayo East Attending Unavailable Ayo East Referring Unavailable Primay Care Physicia, No Primary Care Unavailable Ayo East Attending Unavailable Primay Care Physicia, No Referring Unavailable Primay Care Physicia, No Primary Care Unavailable Ayo East Attending Unavailable Ayo East Referring Unavailable Primay Care Physicia, No Primary Care Unavailable Ayo East Admitting Unavailable Nba Jordan Attending Unavailable Primay Care Physicia, No Referring Unavailable Ayo East Attending Unavailable Ayo East Referring Unavailable Primay Care Physicia, No Primary Care Unavailable Ayo East Consulting Unavailable Umesh Lopez Attending Unavailable Ayo East Referring Unavailable Primay Care Physicia, No Primary Care Unavailable Ayo East Consulting Unavailable Sharla Mayorga Attending Unavailable Primay Care Physicia, No Referring Unavailable Sharla Mayorga Attending Unavailable Sharla Mayorga Referring Unavailable Primay Care Physicia, No Primary Care Unavailable Nba Jordan Attending Unavailable Primay Care Physicia, No Referring Unavailable Nba Jordan Attending Unavailable Sae Jordany Referring Unavailable Primay Care Physicia, No Primary Care Unavailable Ayo East Attending Unavailable Ayo East Referring Unavailable Primay Care Physicia, No Primary Care Unavailable Ayo East Attending Unavailable Ayo East Referring Unavailable Ayo East Attending Unavailable Ayo East Referring Unavailable Primay Care Physicia, No Primary Care Unavailable Ayo East Attending Unavailable Ayo East Referring Unavailable Ayo East Attending Unavailable Ayo East Referring Unavailable Ayo East Attending Unavailable Ayo East Referring Unavailable Primay Care Physicia, No Primary Care Unavailable Merrill Flores Attending Unavailable Primay Care Physicia, No Referring Unavailable Yara Caceres Attending Unavailable VellanSteven hunterma Referring Unavailable Primay Care Physicia, No Primary Care Unavailable Ayo East Attending Unavailable Primay Care Physicia, No Referring Unavailable Ayo East Attending Unavailable Ayo East Referring Unavailable Primay Care Physicia, No Primary Care Unavailable Ayo East Attending Unavailable Ayo East Referring Unavailable Primay Care Physicia, No Primary Care Unavailable Ayo East Attending Unavailable Edwin, Ayo Referring Unavailable Primay Care Physicia, No Primary Care Unavailable PROBLEMS PROBLEMS DATE TYPE CONDITION / CODE ATTENDING STATUS SOURCE 06/28/2018 Unknown H81.09 - Meniere's Nba Jordan Active [facility] disease, unspecified Community ear / H81.09(ICD-10) Hospital Repository 06/28/2018 Unknown R07.9 - Chest pain, Ayo East Active [facility] unspecified / Community R07.9(ICD-10) Hospital Repository 06/24/2018 Unknown M06.09 - Rheumatoid Thierrylandale, Yara Active [facility] arthritis without Community rheumatoid factor, [facility] multiple sites / Repository M06.09(ICD-10) 06/24/2018 Unknown Z79.899 - Other long Vellanki, Yara Active [facility] term (current) drug Community therapy / Hospital Z79.899(ICD-10) Repository 06/24/2018 Unknown M18.0 - Bilateral Vellandale, Yara Active [facility] primary Community osteoarthritis of Hospital first carpometacarpal Repository joints / M18.0(ICD-10) 06/23/2018 Unknown Z95.5 - Presence of Ayo East Active [facility] coronary angioplasty Community implant and graft / Hospital Z95.5(ICD-10) Repository 06/18/2018 Unknown R06.02 - Shortness of Ayo East Active [facility] breath / Community R06.02(ICD-10) Hospital Repository 05/03/2018 Unknown E78.5 - Ayo East Active [facility] Hyperlipidemia, Community unspecified / Hospital E78.5(ICD-10) Repository 04/30/2018 Unknown I25.10 - Ayo East Active [facility] Atherosclerotic heart Community disease of [place] [facility] coronary artery Repository without angina pectoris / I25.10(ICD-10) 04/30/2018 Unknown I48.0 - Paroxysmal Ayo East Active [facility] atrial fibrillation / Community I48.0(ICD-10) Hospital Repository 04/30/2018 Unknown E78.00 - Pure Ayo East Active [facility] hypercholesterolemia, Community unspecified / Hospital E78.00(ICD-10) Repository 04/21/2018 Unknown H81.03 - Meniere's [place] Yara Active [facility] disease, bilateral / Community H81.03(ICD-10) Hospital Repository 04/19/2018 Unknown R39.15 - Urgency of Merrill Flores Active [facility] urination / Community R39.15(ICD-10) Hospital Repository 03/23/2018 Unknown R05 - Cough / Julian, Nba Active [facility] R05(ICD-10) [facility] Repository 03/19/2018 Unknown E07.9 - Disorder of Mayorga, Active [facility] thyroid, unspecified Sharla Malik [facility] / E07.9(ICD-10) Hospital Repository 03/08/2018 Unknown I48.91 - Unspecified Ayo East Active [facility] atrial fibrillation / Community I48.91(ICD-10) Hospital Repository 03/08/2018 Unknown M06.9 - Rheumatoid Ayo East Active [facility] arthritis, Community unspecified / Hospital M06.9(ICD-10) Repository 03/08/2018 Unknown R94.39 - Abnormal Ayo East Active [facility] result of other [facility] cardiovascular Hospital function study / Repository R94.39(ICD-10) 03/29/2018 Unknown R06.09 - Other forms Ayo East Active [facility] / Community R06.09(ICD-10) Hospital Repository PROCEDURES PROCEDURES No Procedure Records FoundRESULTS RESULTS ECHOCARDIOGRAM COMPLETE Observed: 06/28/2018 Status: F Source: [place] 9:56 AM [facility] REPOSITORY [facility] Cardiovascular Services [address] [place] [address] Echo Complete 06/25/18 1008 MR#: [id number] Acct: [id number] Name: JIM MAN Rep #: [id number] : 1945 73 From: Ayo East MD Attending Dr: Ayo East MD Status: REG CLI Ordering Dr: Ayo East MD Date: 06/25/18 Location: [facility] Sex: F C Admitted: Reason For Study: CAD/ASHD Procedure This was a 2D Doppler, Color Flow transthoracic echocardiogram. Exam performed in department. Left Ventricle Normal size and thickness. The estimated ejection fraction is 65 %. Stage 2 diastolic dysfunction. No regional wall motion abnormalities noted. Right Ventricle Normal RV size. Normal systolic function. Atria Normal left atrium. Normal right atrium. Normal atrial septum. Mitral Valve The mitral valve is structurally normal. No prolapse or stenosis seen. Mild (1+) eccentric mitral valve insufficiency. Tricuspid Valve Normal tricuspid valve. Mild (1+) tricuspid valve insufficiency. Right ventricular systolic pressure estimated to be 31 mmHg. Aortic Valve Normal aortic valve. Trisinus/trileaflet aortic valve. Pulmonic Valve Normal pulmonic valve. Trivial pulmonic valve insufficiency. Great Vessels Normal aortic root. Normal arch. Normal inferior vena cava. Inferior vena cava collapse with sniff. Pericardium/Pleural No pericardial effusion. MMode/2D Measurements AND Calculations LVIDd: 4.7 cm IVSd: 0.86 cm Ao root diam: 2.7 cm LVIDs: 2.9 cm LVPWd: 0.75 cm RVDd: 2.8 cm FS: 37.6 % LAV(MOD-bp): 45.9 ml LA A4 area: 15.9 cm2 LA dimension(2D): 3.4 cm LAV(MOD-bp) Indexed: 29.8 ml/m2 LAV(MOD-sp2): 44.4 ml LAV(MOD-sp4): 45.2 ml RA A4 area: 14.1 cm2 Doppler Measurements AND Calculations MV E max thierry: 100.2 cm/sec Lat Peak E' Thierry: 8.9 cm/sec Med Peak E' Thierry: 7.9 cm/sec MV A max thierry: 79.0 cm/sec E/E' lat: 11.2 E/E' med: 12.7 MV E/A: 1.3 Ao V2 max: 141.8 cm/sec LV V1 max: 105.6 cm/sec MR max thierry: 530.0 cm/sec Ao max P.1 mmHg LV V1 max P.5 mmHg MR max P.3 mmHg PA V2 max: 91.3 cm/sec TR max thierry: 249.5 cm/sec PI dec slope: 160.8 cm/sec2 TR max P.7 mmHg Interpretation Summary The estimated ejection fraction is 65 %. Stage 2 diastolic dysfunction. Mild (1+) eccentric mitral valve insufficiency. Mild (1+) tricuspid valve insufficiency. Right ventricular systolic pressure estimated to be 31 mmHg. Compared to echo report dated 03/01/2018, no appreciable changes noted. Ordering Physician: Ayo East Referring Physician: NO PCP Performed By: Cristina Adam RDCS, RVT 06/28/1846 Date Ayo East MD CC: No Primary Care Physician; Ayo East MD Date Dictated: 06/25/18 1008 Date Transcribed: 06/28/18945 Repack Room Worker: Signed URGENT CARE VISIT Observed: 06/28/2018 Status: F Source: [facility] REPORT 9:44 AM [facility] REPOSITORY [facility] [address] [place] [address] OFFICE VISIT Date of Service: 06/28/18 MR#: [id number] Acct: [id number] Name: JIM MAN Margot Rep #: [id number] : 1945 Provider: Nba JIMENEZ Age/Sex: 73/F Location: [facility] Status: Signed Intake Vital Signs06/28/18 Body Mass Index (BMI) 26.0 06/28/18 Weight: 131 lb 06/28/18 Blood Pressure 122/78 H 06/28/18 Blood Pressure Location Lt brachial 06/28/18 Blood Pressure Position Sitting Intake Visit Reasons: RT EAR/ TINNITIS/DIZZY Chief Complaint: Ear pain Monorail Helper Required: No Accompanied by: self Is patient in pain?: No Allergies Sulfa (Sulfonamide Antibiotics) Allergy (Unknown, Verified 06/28/18 09:13) unknown Medications folic acid 1 mg tablet 1 mg PO DAILY 02/12/18 [History Confirmed 06/28/18] methotrexate sodium 2.5 mg tablet 15 mg PO TU tab 02/12/18 [History Confirmed 06/28/18] prednisone 5 mg tablet 5 mg PO DAILY PRN 02/16/18 [History Confirmed 06/28/18] Aspirin E.C. [Ecotrin] 81 mg PO DAILY tab 03/06/18 [Rx Confirmed 06/28/18] nitroglycerin 0.4 mg sublingual tablet 0.4 mg SUBLINGUAL Q5- 15M PRN #25 tab 03/19/18 [Rx Confirmed 06/28/18] nitrofurantoin monohydrate/macrocrystals 100 mg capsule 100 mg PO BID #14 cap 04/19/18 [Rx Confirmed 06/28/18] clopidogrel 75 mg tablet See Rx Instructions PO DAILY #90 tab 04/30/18 [Rx Confirmed 06/28/18] metoprolol tartrate 25 mg tablet 25 mg PO BID #180 tab 04/30/18 [Rx Confirmed 06/28/18] rosuvastatin 20 mg tablet 20 mg PO DAILY #90 tab 05/03/18 [Rx Confirmed 06/28/18] promethazine 25 mg tablet 25 mg PO Q6H PRN #10 tab 06/28/18 [Rx Confirmed 06/28/18] PFSH Medical History Chest pain (Acute) 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) Dyspnea on exertion (Acute) Abnormal stress echo (Acute) Rheumatoid arthritis (Chronic) Hyperlipidemia (Chronic) Atrial fibrillation (Chronic) Meniere disease (Chronic) Fatigue (Acute) Surgical History Stented coronary artery (Chronic) History of carpal tunnel release of both wrists (Chronic 2012) Family History Father CAD (coronary artery disease) Mother Cancer COPD (chronic obstructive pulmonary disease) Social History Smoking Status: Never smoker 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 Patient states she has had many years disease for the past 30 years and had an acute episode over the weekend causing her to have some dizziness and vertigo symptoms. She denies any falls or loss of consciousness. She states that she did take the last of her promethazine medications that she had left from 2007 however states that she is completely out of this time. She does state that her main reason for coming in today is to get a refill of her promethazine prescription as all of her symptoms have resolved. She denies any nausea, vomiting, diarrhea. No fever, chills, sweats. No other associated symptoms or alleviating/aggravating factors. ROS Const Constitutional: No chills, fever(s), fatigue or abnormal sleep pattern Eyes Eyes: No change in vision, light sensitivity or visual disturbances ENT ENT: Positive for dizziness/vertigo; no abnormal hearing, ear pain, ear discharge, ear pressure, nasal congestion, nasal discharge or sore throat Resp Respiratory: No shortness of breath or chest congestion Cardio Cardiology: No chest pain at rest, chest pain with exertion or shortness of breath Skin Skin: No wounds or lesions Neuro Neurology: No behavioral changes, confusion, visual disturbances or abnormal hearing Psych Psychiatric: No behavioral changes, No confusion, No abnormal sleep pattern Endo Endocrine: No fatigue Exam Const General: cooperative, healthy appearing [facility] Head: normocephalic, atraumatic Ears: hearing grossly normal bilaterally, TM abnormal with fluid behind the TM on the right, EAC's normal Nose: external nose normal Face and sinus: face symmetric, normal facial exam Mouth: oral mucosae normal Throat: posterior oropharynx normal Eyes General: appearance normal, both eyes and all related structures Visual Savage: normal visual savage by confrontation Alignment and Position: alignment normal Conjunctivae: conjunctivae normal Sclera: sclerae normal Cornea: corneas normal Pupils: PERRL EOM: EOM intact bilaterally, No nystagmus Resp Effort AND Inspection: normal respiratory effort Auscultation: Bilateral: Clear to Auscultation Cardio Palpation: normal PMI Rate: regular rate Rhythm: regular rhythm Skin General: no rashes or lesions noted Neuro General: alert, CN's II-XI intact bilaterally, gait normal Cranial Nerves: no nystagmus Cognition: normal cognition Speech: speech normal Gait: normal gait Motor: muscle tone normal throughout, strength 5/5 throughout Sensory Exam: no sensory deficits noted Psych Appearance: grossly normal Mental Status: mental status grossly normal Assessment AND Plan Problems 1. Meniere's disease, unspecified laterality H81.09 2. Labyrinthitis of right ear H83.01 Status Acute Plan Take Nasocort and promethazine as prescribed today. Encouraged to get plenty of rest. Patient also educated on other symptomatic management techniques. To be seen in 7-10 days by her PCP if no improvement; sooner if worsening of symptoms. Patient advised of potential red flags and when appropriate to report to the ED. Patient verbalized understanding and agreed with all the above. Medications New: Coding Level of Care Code Off vis,est,level 3 Diagnoses Meniere's disease, unspecified laterality H81.09 Laterality: unspecified laterality Labyrinthitis of right ear H83.01 Laterality: right 06/28/18 0944 <Electronically signed by Nba JIMENEZ> Date Nba JIMENEZ Cosigner Signature: Date (if applicable) CC: CBC W/DIFF, AUTOMATED Collected: 06/24/2018 Status: F Source: [place] 12:43 PM [facility] REPOSITORY TYPE CODE TESTS RESULT OUT OF RANGE REFERENCE UNITS LAB L100.1000 4.4-11.0 K/mm3 Normal WBC 7.1 LAB L100.1200 4.2-5.4 M/mm3 Low RBC 4.04 LAB L100.1300 12.0-15.0 g/dl Normal HGB 13.0 LAB L100.1400 37-47 % Normal HCT 39.4 LAB L100.1500 81-99 fL Normal MCV 97.5 LAB L100.1600 27.0-32.0 pg High MCH 32.2 LAB L100.1700 32-36 g/gl Normal MCHC 33.0 LAB L100.1810 11.6-14.6 % Normal RDW CV 12.9 LAB L100.1820 35.1-43.9 fl High RDW SD 44.9 LAB L100.1900 150-450 K/mm3 Normal PLT 312 LAB L100.2000 6.2-12.0 fl Normal MPV 9.7 LAB L100.2100 47-70 % Normal NEUT% 63.6 LAB L100.2200 19-41 % Normal LY% 27.3 LAB L100.2300 0-10 % Normal MONO% 6.6 LAB L100.2400 0-5 % Normal EO% 1.7 LAB L100.2500 0-1 % Normal BASO% 0.8 LAB L100.2550 0.0-0.9 % Normal IM GRAN % 0.000 Result Comment: IG% - Immature Granulocytes (promyelocytes, myelocytes and metamyelocytes) > 1% indicates that a LEFT SHIFT is Present. LAB L100.2620 2.0-7.7 X10 3/uL Normal Absolute Neut 4.5 LAB L100.2720 0.83-4.51 X10 3/ul Normal Absolute Lymph 1.93 Performed By: #### L100.0100 #### [facility] [address] [place], [place], [address] COMPREHENSIVE METABOLIC Collected: 06/24/2018 Status: F Source: [facility] 12:43 PM [facility] REPOSITORY TYPE CODE TESTS RESULT OUT OF RANGE REFERENCE UNITS LAB L501.0100 74-106 mg/dL Normal GLU 105 Result Comment: Fasting Glucose result from 100 to 125 mg/dL suggests IMPAIRED HOMEOSTASIS per A.D.A. criteria. Please note revised GLUCOSE reference range effective 2017. LAB L501.1000 7-18 mg/dL High BUN 20 LAB L501.1100 0.55-1.02 mg/dL Normal CREAT,SERUM 0.67 Result Comment: The validity of the calculated GFR AND GFRAA in patients over 70 years has not been determined. Clinical correlation is essential. LAB L501.1110 >60 mL/min Normal EST GFR 92 Result Comment: Non- GFR Calc LAB L501.1115 >60 mL/min Normal EST GFR - AA 112 Result Comment: GFR Calc LAB L501.1300 10-20 RATIO High BUN/CRE 30.0 LAB L501.1500 6.4-8.2 g/dL T Normal PROT 7.7 LAB L501.1800 3.2-5.0 g/dL Normal ALB 4.0 LAB L501.1950 2.2-4.2 g/dL Normal GLOB 3.7 LAB L501.2000 0.9-2.4 RATIO Normal A/G 1.1 LAB L501.2200 8.5-10.1 mg/dL CA Normal 9.3 LAB L501.4100 15-37 U/L Normal AST 20 LAB L501.4305 45-117 U/L Normal ALK P 72 LAB L501.4405 13-56 U/L Normal ALT 31 LAB L501.4600 0.20-1.00 mg/dL T Normal BILI 0.50 LAB L501.5300 136-145 mmol/L NA Normal 140 LAB L501.5600 3.5-5.1 mmol/L K Normal 4.4 LAB L501.5900 98-107 mmol/L CL Normal 106 LAB L501.6100 21.0-32.0 mmol/L Normal CO2 26.0 LAB L501.6200 5-15 Normal GAP 8 Performed By: #### L500.4050 #### [facility] [address] [place], [address] TXT - BLOOD FLOW Observed: 06/17/2018 Status: F Source: [facility] SCREENING 4:37 PM [facility] REPOSITORY [facility] Cardiovascular Services [address] [place] [address] 06/17/18 0858 MR#: [id number] Acct: [id number] Name: JIM MAN Rep #: [id number] : 1945 73 From: Louis Calderon MD Attending Dr: Self Referred Status: REG REF Ordering Dr: Date: 06/17/18 Location: [facility] Sex: F C Admitted: Reason For Study: screening Carotid Duplex Ultrasound Abdominal Aorta The right ECA velocity is less than 125 cm/s. The maximal outside diameter of the proximal aorta The right maximum ICA velocity is 76.2/23.5 cm/s. measures 1.59 cm in the longitudinal axis. There is insignificant plaque formation noted on The maximal outside diameter of the proximal aorta the right side. measures 1.69 x 1.70 cm in the cross-sectional The left ECA velocity is less than 125 cm/s. axis. The left maximum ICA velocity is 78.6/22.9 cm/s. There is insignificant plaque formation noted on the left side. Ankle Brachial Index The right ankle/ brachial index is 1.1. The left ankle/ brachial index is 1.1. Medical History and Assessment The heart rate is 64 beats per minute. The heart rhythm is regular. The right blood pressure is 116/74. The left blood pressure is 118/70. The assessment was performed by James Vaughn RVT. The patient presents with a history of HTN and heart disease. Interpretation Summary Normal carotid artery screening (0 to 15% narrowing). Normal aortic ultrasound exam. The ankle/brachial index is normal (1.0 or greater). Performed By: Carlos Vaughn RVT 06/17/18 1636 Date Louis Calderon MD CC: No Primary Care Physician; Self Referred Date Dictated: 06/17/18 0858 Date Transcribed: 06/17/181635 Repack Room Worker: Signed STRESS TEST ECHO W/O Observed: 05/28/2018 Status: F Source: [place] CONTRAST 11:28 AM [facility] REPOSITORY [facility] Cardiovascular Services [address] [place] [address] Stress Test Echo w/o Contrast MR#: [id number] Acct: [id number] Name: JIM MAN Rep #: [id number] : 1945 72 From: Ayo East MD Primary Care: Care Physician, No Primary Status: REG CLI Ordering Dr: Ayo East MD Sex: F C Version 2 Reason For Study: Chest Pain Stress Results Protocol: Stress Echocardiogram Maximum Predicted HR: 149 bpm Target HR: 127 bpm % Maximum Predicted HR: 111 % DurationHeart Rate Stage (mm:ss) (bpm) BP Comment BASELINE 3:00 69 132/80 MARGARITO PROTOCOL- STAGE 1 3:00 116 134/78 MARGARITO PROTOCOL- STAGE 2 3:00 131 142/80SL SOB MARGARITO PROTOCOL- STAGE 3 3:00 166 148/82SOB RECOVERY 88 110/68 Stress Duration: 12:00 mm:ss Maximum Stress HR: 166 bpm Baseline Echocardiogram Findings The estimated ejection fraction is 60 %. Stress Echo Wall motion Data Resting WM Intermediate WM Stress WM Resting Wall Motion Wall Motion Stress No regional wall motion No regional wall motion abnormalities noted. abnormalities noted. EKG Data Normal intervals are noted. The patient exercised according to the regular Margarito protocol for a total duration of 9:00. The maximum heart rate attained was 166 beats per minute. This was 111% of maximum predicted heart rate. The patient exercised into stage 4 of the Margarito protocol. No clinical angina was noted. No arrhythmias noted. At peak exercise, upsloping ST changes only were noted, which did not meet the criteria for ischemia. Interpretation Summary The estimated ejection fraction is 60 %. Normal, adequate, treadmill echocardiogram. Negative for ischemia by EKG and echocardiographic criteria. No anginal symptoms noted. Rare PAC noted. Average exercise capacity for age. Appropriate blood pressure response to exercise. Test terminated due to shortness of breath and attainment of target heart rate. Final LVEF of 70%. No complications. Ordering Physician: Ayo East Referring Physician: Ayo East Performed By: Cristina Adam, RDCS, RVT 05/28/18 1127 Date Ayo East MD CC: No Primary Care Physician; Ayo East MD Date Dictated: 05/27/18 1003 Date Transcribed: 05/28/18 112 Repack Room Worker: Signed 12 LEAD ELECTROCARDIOGRAM Observed: 05/20/2018 Status: F Source: [facility] 3:28 PM [facility] REPOSITORY [facility] Cardiovascular Services [address] [place] [address] 12 Lead EKG 05/19/18 1313 MR#: [id number] Acct: [id number] Name: JIM MAN Rep #: [id number] : 1945 72 From: Ayo East MD Attending Dr: Ayo East MD Status: REG R Ordering Dr: Ayo East MD Date: 05/19/18 Location: Sex: F C Admitted: Test Reason : CP Blood Pressure : / mmHG Vent. Rate : 069 BPM Atrial Rate : 069 BPM P-R Int : 138 ms QRS Dur : 078 ms QT Int : 412 ms P-R-T Axes : 044 027 035 degrees QTc Int : 441 ms Normal sinus rhythm Normal ECG Confirmed by AYO EAST ([id number]), graphics editor CHAS MERCEDES ([id number]) on 05/20/2018 3:28:15 PM Referred By: Ayo East Confirmed By:AYO EAST 05/20/18 1528 Date Ayo East MD CC: No Primary Care Physician; Ayo East MD Signed LIVER PROFILE Collected: 05/03/2018 Status: F Source: JAMAL 10:12 AM [facility] REPOSITORY TYPE CODE TESTS RESULT OUT OF RANGE REFERENCE UNITS LAB L501.1500 6.4-8.2 g/dL Normal T PROT 7.3 LAB L501.1800 3.2-5.0 g/dL Normal ALB 3.7 LAB L501.1950 2.2-4.2 g/dL Normal GLOB 3.6 LAB L501.4100 15-37 U/L Normal AST 25 LAB L501.4305 45-117 U/L Normal ALK P 69 LAB L501.4405 13-56 U/L Normal ALT 37 LAB L501.4600 0.20-1.00 mg/dL Normal T BILI 0.50 LAB L501.4700 0.00-0.30 mg/dL Normal D BILI 0.15 Performed By: #### L500.3400, L500.4100 #### [facility] [address] [place], [place], [id number] LIPID PROFILE Collected: 05/03/2018 Status: F Source: JAM[place] 10:12 AM [facility] REPOSITORY TYPE CODE TESTS RESULT OUT OF RANGE REFERENCE UNITS LAB L501.4900 200 mg/dL Normal CHOL 181 Result Comment: <200 mg/dL Desirable 200-240 mg/dL Borderline >240 mg/dL High Risk LAB L501.5000 mg/dL Normal TRIG 102 Result Comment: The drugs N-Acetylcysteine and Metamizole may falsely depress this assay. Serum Triglycerides Reference Interval Normal <150 mg/dL Borderline high 150 - 199 mg/dL High 200 - 499 mg/dL Very High > or = 500 mg/dL LAB L501.6400 mg/dL Normal HDL 52 Result Comment: The drugs N-Acetylcysteine and Metamizole may falsely depress this assay. Reference Range HDL <40 mg/dL Low HDL Cholesterol HDL >or= 60 mg/dL High HDL Cholesterol LAB L501.6500 0-130 mg/dL Normal LDL 109 LAB L501.6600 5-40 mg/dL Normal VLDL 20 Performed By: #### L500.3400, L500.4100 #### [facility] [address] [place], [place], [id number] CARDIOLOGY VISIT Observed: 04/30/2018 Status: F Source: [facility]AL REPORT 11:34 AM [facility] REPOSITORY [facility] [address] [place] [address] OFFICE VISIT Date of Service: 04/30/18 MR#: [id number] Acct: [id number] Name: JIM MAN Rep #: [id number] : 1945 Provider: Ayo East MD Age/Sex: 72/F Location: [facility] Status: Signed HPI HPI Chief Complaint: Routine f/u Details: IJM MAN, is a 72 F who presents to the office today for a hospital follow up. She established with us for a pre-operative assessment. She has a history of paroxysmal atrial fib. She had an abnormal stress which led to a heart cath. She needed stenting x2 to her LAD and PTCA to the ostial of the diagonal which took place on 03/05/[address] East. Her remaining coronary arteries were free of significant disease. Pt sts that she had chest pain twice since she had her stent. She was carrying something heavy approx 150 feet and developed chest pain. She did this about 8 times. It was not on a level surface. She chest hurt after this. She took a NTG and it took the discomfort away. She rated this as an 8/10. She did have one other episode on chest pain and this was short lasting. Previous to her heart cath, she was having chest pain with any activity. Patient is now participating in cardiac rehab without any difficulty and is about jail through it. She denies any exertional chest pain or angina. Her blood pressure is much better controlled. She is taking and tolerating her medicines well. In our office today her blood pressure is 102/60 and pulse is 64 and regular. Her physical exam is as below. Her lipids as of 03/02/18 show an LDL of 110 and HDL of 55. Repeat lipid is pending. Intake Vital Signs04/30/18 Height 4 ft 11 in 04/30/18 Weight: 129 lb 04/30/18 Body Mass Index (BMI) 26.0 04/30/18 Blood Pressure 102/60 Intake Visit Reasons: 6 wk FU Monorail Helper Required: No Accompanied by: Significant Other Is patient in pain?: No Allergies Sulfa (Sulfonamide Antibiotics) Allergy (Unknown, Verified 04/28/18 18:07) unknown Medications folic acid 1 mg tablet 1 mg PO DAILY 02/12/18 [History Confirmed 04/28/18] methotrexate sodium 2.5 mg tablet 15 mg PO TU tab 02/12/18 [History Confirmed 04/28/18] prednisone 5 mg tablet 5 mg PO DAILY PRN 02/16/18 [History Confirmed 04/28/18] Aspirin E.C. [Ecotrin] 81 mg PO DAILY tab 03/06/18 [Rx Confirmed 04/28/18] nitroglycerin 0.4 mg sublingual tablet 0.4 mg SUBLINGUAL Q5- 15M PRN #25 tab 03/19/18 [Rx Confirmed 04/28/18] nitrofurantoin monohydrate/macrocrystals 100 mg capsule 100 mg PO BID #14 cap 04/19/18 [Rx Confirmed 04/28/18] clopidogrel 75 mg tablet See Rx Instructions PO DAILY #90 tab 04/30/18 [Rx Confirmed 04/30/18] metoprolol tartrate 25 mg tablet 25 mg PO BID #180 tab 04/30/18 [Rx Confirmed 04/30/18] rosuvastatin 10 mg tablet 10 mg PO DAILY #90 tab 04/30/18 [Rx Confirmed 04/30/18] FORMERLY [facility], 1928–1983 Medical History Chest pain (Acute) 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) Dyspnea on exertion (Acute) Abnormal stress echo (Acute) Rheumatoid arthritis (Chronic) Hyperlipidemia (Chronic) Atrial fibrillation (Chronic) Meniere disease (Chronic) Fatigue (Acute) Surgical History Stented coronary artery (Chronic) History of carpal tunnel release of both wrists (Chronic 2012) Family History Father CAD (coronary artery disease) Mother Cancer COPD (chronic obstructive pulmonary disease) Social History Smoking Status: Never smoker 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[employer] Const: Positive for other (Post JENNIFER X2 and PCI X 1 Feb 2018: had chest pain last Thursday); negative for weakness, body ache, fever(s), chills, frequent falls, night sweats, daytime sleepiness, difficulty sleeping, weight gain, weight loss, increased appetite, poor appetite, anorexia, fatigue, excessive sweating or headache(s) Eyes Eyes: Negative for blind spots, loss of peripheral vision, transient loss of vision, blurry vision, change in vision, double vision, floaters, tunnel vision or other ENT ENT: Negative for headache(s), dizziness, hearing loss, tinnitus, Nosebleed/epistaxis, post nasal drip, lip swelling, tongue swelling, bleeding gums, hoarseness, neck pain, dry mouth, other or balance problems Cardio Chest Pain: Yes (One episode while doing laundry last sun: relieved with 1 nitro.) Frequency: other (one time) Character: dull, other (pressure) Onset: other (spontaneous) Location: mid sternal Exacerbation: activity Relieving: other (nitroglycerin) Recurrence: other Resp Respiratory: Negative for SOB with activity, SOB at rest, SOB orthopnea\SOB lying down, Cough, Coughing up blood/hemoptysis, chest congestion, pain on inspiration, snoring, stridor, wheezing, crackles, paroxysmal nocturnal dyspnea or other GI GI: Negative nausea, vomiting, heartburn, constipation, belching, bloating, cramping, vomiting blood/hematemesis, bright, red blood in stools, black,tarry stools, loose stools, Difficulty Swallowing or other : Negative for hematuria, frequent nighttime urination/ nocturia, erectile dysfunction or abnormal vaginal bleeding Musc Musc: Negative for balance problems, muscle aches/ myalgia, muscle weakness or joint pain Skin Skin: Negative redness, non-healing lesions, rash, unusual bruising, skin ulcer, wounds, jaundice or other Neuro Neuro: Negative for lightheadedness, near syncope, syncope, orthostatic symptoms, confusion, memory loss, restless legs, vertigo, seizures, lack of coordination, other, weakness, frequent falls, blurry vision, double vision, headache(s) or dizziness Arslan Hematologic/Lymphatic: Negative for easy bleeding, easy bruising, enlarged lymph nodes or other Endo Endo: Negative for fatigue, excessive sweating, cold intolerance, heat intolerance, flushing, increased thirst/drinking, increased hunger, hair loss, hair growth or other Psych Psych: Negative for anxiety, depression, thoughts of harming anyone, thoughts of harming yourself, visual hallucinations, panic attacks or audible hallucinations Allergy Allergy/Immunology: Negative for throat swelling, Negative for hives, Negative for lip swelling, Negative for tongue swelling, Negative for rash Cardiology Exam Const Appearance: cooperative, healthy appearing and no acute distress Nutritional Appearance: well nourished Orientation: alert, oriented x3 and oriented to person Head Head: normal to inspection, atraumatic and normocephalic Nose: external nose normal Face and Sinus: face symmetric Mouth: oral mucosae normal Eyes General: appearance normal, both eyes and all related structures Eyelids: eyelids normal Conjunctivae: conjunctivae normal Pupils: PERRL and normal by confrontation EOM: EOM intact bilaterally Neck Neck: normal visual inspection and full ROM Carotids: normal carotid upstroke Chest Chest inspection: normal inspection of the chest Auscultation: Bilateral: Clear to Auscultation Cardio Palpation: normal PMI Rate: regular rate Rhythm: regular rhythm Heart sounds: S1 normal and S2 normal GI GI: normal to inspection, no hepatosplenomegaly and bowel sounds present Neuro General: alert, oriented x3, awake, CN's II-XI intact bilaterally and moves all extremities Skin Skin: no rashes or lesions noted Extremities Pulses: Normal: Right Femoral Pulse, Left Femoral Pulse, Right Dorsalis Pedis Pulse, Left Dorsalis Pedis Pulse, Right Posterior Tibial Pulse, Left Posterior Tibial Pulse, Right Radial Pulse, Left Radial Pulse Lower Extremity Edema: None: Bilateral Psych Psychological: normal affect Assessment AND Plan 1. Atherosclerosis of [place] coronary artery of [place] heart without angina pectoris I25.10 JENNIFER to mid LAD with a 2.25 X 12 Promus Synergy, followed just distally with another 2.25 X 12 Promus Synergy; PCI to diagonal 1. Plan 1. Coronary artery disease: Patient has no exertional chest pain symptoms anymore since medicines were adjusted and she is participating in cardiac rehab. I recommended that she continue cardiac rehab through to its conclusion and graduate sometime in the first week of June. Right around that time I recommended a repeat echocardiogram to determine if her LV function has improved since angioplasty and stenting, medicines and cardiac rehab. She may then go to [place]. She will continue her baby aspirin, Plavix, metoprolol. Orders Orders: 2. Paroxysmal atrial fibrillation I48.0 Plan 2. Paroxysmal atrial fibrillation: Patient is currently in normal sinus rhythm by physical exam. No indication for any coagulation at this time. Repeat echo is pending. 3. Pure hypercholesterolemia E78.00 Plan 3. Hyperlipidemia: We will repeat her lipid profile. Her LDL should be less than 70. Continue Crestor. 4. Return office in 6 months. This note was generated using a voice recognition system and there may be incorrect words, spelling or punctuation that were not noted when reviewing the office note prior to saving. 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 transplanted heart: [place] heart Paroxysmal atrial fibrillation I48.0 Atrial fibrillation type: paroxysmal Pure hypercholesterolemia E78.00 Hyperlipidemia type: pure hypercholesterolemia Coding Level of Care Code Off vis,est,level 3 Diagnoses Atherosclerosis of [place] coronary artery of [place] heart without angina pectoris I25.10 [place] vs. transplanted heart: [place] heart Paroxysmal atrial fibrillation I48.0 Atrial fibrillation type: paroxysmal Pure hypercholesterolemia E78.00 Hyperlipidemia type: pure hypercholesterolemia 04/30/18 1134 <Electronically signed by Ayo East MD> Date Ayo East MD Cosigner Signature: Date (if applicable) CC: No Primary Care Physician HIP, UNI W/ PELVIS Observed: 04/21/2018 Status: F Source: JAMAL 2-3 VIEWS 10:02 AM [facility] REPOSITORY [facility] Imaging Services [address] [place] [address] HIP, UNI W/ Pelvis 2-3 Views MR#: [id number] Acct: [id number] Name: JIM MAN Rep #: [id number] : 1945 F 72 From: Houston Jerome MD PCP: Care Physician, No Primary Status: REG CLI Study: HIP, UNI W/ Pelvis 2-3 Views Date of Exam: 04/21/18 Exam# [id number] Ordering Dr: Yara Caceres MD STUDY: X-RAY - PELVIS AND RIGHT HIP REASON FOR EXAM: Female, 72 years old. The patient has a history of arthritis. Right hip pain. TECHNIQUE: Radiological exam, hip, unilateral, with pelvis when performed; 2 or 3 views. COMPARISON: None. FINDINGS: There is a non-specific bowel gas pattern. Normal visualized soft tissue structures. There is narrowing with cortical sclerosis and osteophyte formation of the sacroiliac joint consistent with degenerative osteoarthritic changes. Normal bilateral superior and inferior pubic rami. There are degenerative changes of the pubic symphysis with articular narrowing and sclerosis. Normal bilateral ischial tuberosities. Normal visualized femoral head. Normal acetabulum. There is mild articular joint space narrowing of the hip. RAD/HIP, UNI W/ Pelvis 2-3 Views IMPRESSION: Mild degree of degenerative changes of the hip joint. Electronically Signed: Houston Jerome MD at 11:05 EST Tel [phone], Service support , CC: No Primary Care Physician; Yara Caceres MD Repack Room Worker: Signed CBC W/DIFF, AUTOMATED Collected: 04/21/2018 Status: F Source: [place] 9:49 AM [facility] REPOSITORY TYPE CODE TESTS RESULT OUT OF RANGE REFERENCE UNITS LAB L100.1000 4.4-11.0 K/mm3 Normal WBC 5.2 LAB L100.1200 4.2-5.4 M/mm3 Low RBC 4.02 LAB L100.1300 12.0-15.0 g/dl Normal HGB 13.0 LAB L100.1400 37-47 % Normal HCT 39.7 LAB L100.1500 81-99 fL Normal MCV 98.8 LAB L100.1600 27.0-32.0 pg High MCH 32.3 LAB L100.1700 32-36 g/gl Normal MCHC 32.7 LAB L100.1810 11.6-14.6 % Normal RDW CV 13.6 LAB L100.1820 35.1-43.9 fl High RDW SD 47.8 LAB L100.1900 150-450 K/mm3 Normal PLT 302 LAB L100.2000 6.2-12.0 fl Normal MPV 10.1 LAB L100.2100 47-70 % Normal NEUT% 50.0 LAB L100.2200 19-41 % Normal LY% 34.5 LAB L100.2300 0-10 % High MONO% 10.9 LAB L100.2400 0-5 % Normal EO% 3.1 LAB L100.2500 0-1 % High BASO% 1.3 LAB L100.2550 0.0-0.9 % Normal IM GRAN % 0.200 Result Comment: IG% - Immature Granulocytes (promyelocytes, myelocytes and metamyelocytes) > 1% indicates that a LEFT SHIFT is Present. LAB L100.2620 2.0-7.7 X10 3/uL Normal Absolute Neut 2.6 LAB L100.2720 0.83-4.51 X10 3/ul Normal Absolute Lymph 1.80 Performed By: #### L100.0100, L101.9900 #### [facility] [address] [facility] [place], [place], [address] ERYTHROCYTE SED RATE Collected: 04/21/2018 Status: F Source: [place] 9:49 AM [facility] REPOSITORY TYPE CODE TESTS RESULT OUT OF RANGE REFERENCE UNITS LAB L102.0000 0-30 mm/hr Normal SED RATE 16 Performed By: #### L100.0100, L101.9900 #### [facility] [address] [facility] [place] [id number] COMPREHENSIVE METABOLIC Collected: 04/21/2018 Status: F Source: [facility] 9:49 AM [facility] REPOSITORY TYPE CODE TESTS RESULT OUT OF RANGE REFERENCE UNITS LAB L501.0100 74-106 mg/dL Normal GLU 87 Result Comment: Please note revised GLUCOSE reference range effective 2017. LAB L501.1000 7-18 mg/dL High BUN 21 LAB L501.1100 0.55-1.02 mg/dL Normal CREAT,SERUM 0.64 Result Comment: The validity of the calculated GFR AND GFRAA in patients over 70 years has not been determined. Clinical correlation is essential. LAB L501.1110 >60 mL/min Normal EST GFR 98 Result Comment: Non- GFR Calc LAB L501.1115 >60 mL/min Normal EST GFR - AA 118 Result Comment: GFR Calc LAB L501.1300 10-20 RATIO High BUN/CRE 33.0 LAB L501.1500 6.4-8.2 g/dL T Normal PROT 7.8 LAB L501.1800 3.2-5.0 g/dL Normal ALB 4.0 LAB L501.1950 2.2-4.2 g/dL Normal GLOB 3.8 LAB L501.2000 0.9-2.4 RATIO Normal A/G 1.1 LAB L501.2200 8.5-10.1 mg/dL CA Normal 8.6 LAB L501.4100 15-37 U/L Normal AST 21 LAB L501.4305 45-117 U/L Normal ALK P 75 LAB L501.4405 13-56 U/L Normal ALT 28 LAB L501.4600 0.20-1.00 mg/dL T Normal BILI 0.50 LAB L501.5300 136-145 mmol/L NA Normal 141 LAB L501.5600 3.5-5.1 mmol/L K Normal 3.9 LAB L501.5900 98-107 mmol/L High CL 108 LAB L501.6100 21.0-32.0 mmol/L Normal CO2 26.0 LAB L501.6200 5-15 Normal GAP 7 Performed By: #### L500.4050, L501.6710, L505.7010 #### [facility] [address] [place], [place], [id number] CRP Collected: 04/21/2018 Status: F Source: [place] 9:49 AM [facility] REPOSITORY TYPE CODE TESTS RESULT OUT OF RANGE REFERENCE UNITS LAB L501.6710 0.0-3.0 mg/L High 4.50 C-REACTIVE PROT Result Comment: C-Reactive Protein (CRP) provides useful information for the diagnosis, therapy and monitoring of inflammatory processes and associated diseases. For the evaluation of Relative Risk for Cardiovascular Disease, a High Sensitivity CRP (HSCRP) should be ordered. Performed By: #### L500.4050, L501.6710, L505.7010 #### [facility] [address] [place], [place], [address] RHEUMATOID FACTOR Collected: 04/21/2018 Status: F Source: [place] 9:49 AM [facility] REPOSITORY TYPE CODE TESTS RESULT OUT OF RANGE REFERENCE UNITS LAB L505.7010 <15 IU/mL Normal RHEUMATOID FAC < 10.0 Performed By: #### L500.4050, L501.6710, L505.7010 #### [facility] [place], [address] ANTINUCLEAR ANTIBODIES Collected: 04/21/2018 Status: F Source: [facility] DIRECT 9:49 AM [facility] REPOSITORY TYPE CODE TESTS RESULT OUT OF RANGE REFERENCE UNITS LAB L3100.5475 Negative Normal Negative BHUPINDER-DIRECT Result Comment: Performed at: [facility] [employer] [id number] Supervisor Photoengraving: Derrell Anthony PhD, Phone: [phone] Performed By: #### L3100.5475 #### [facility] (refer to report for specific site) refer to report for address and phone number HEPATITIS B SURFACE Collected: 04/21/2018 Status: F Source: [facility] AG 9:49 AM [facility] REPOSITORY TYPE CODE TESTS RESULT OUT OF RANGE REFERENCE UNITS LAB L3100.0400 Negative Normal HB Negative SURF AG Result Comment: Performed at: [facility] [id number] Supervisor Photoengraving: Derrell Anthony PhD, Phone: [phone] Performed at: [facility] [id number] Supervisor Photoengraving: Antoinette Ritchie MD, Phone: [phone] Performed By: #### L3100.0390, L3100.0528, L3100.0625, L4600.0100 #### [facility] (refer to report for specific site) refer to report for address and phone number HEP B SURFACE Collected: 04/21/2018 Status: F Source: [facility] ANTIBODIES 9:49 AM [facility] REPOSITORY TYPE CODE TESTS RESULT OUT OF RANGE REFERENCE UNITS LAB L3100.0528 . Normal Hep B Non Reactive Marques AB Result Comment: Non Reactive: Inconsistent with immunity, less than 10 mIU/mL Reactive: Consistent with immunity, greater than 9.9 mIU/mL Performed By: #### L3100.0390, L3100.0528, L3100.0625, L4600.0100 #### [facility] (refer to report for specific site) refer to report for address and phone number HEPATITIS C ANTIBODIES Collected: 04/21/2018 Status: F Source: [place] 9:49 AM [facility] REPOSITORY TYPE CODE TESTS RESULT OUT OF RANGE REFERENCE UNITS LAB L3100.0650 0.0-0.9 s/co ratio Normal HEP C AB 0.2 Result Comment: Negative: < 0.8 Indeterminate: 0.8 - 0.9 Positive: > 0.9 The CDC recommends that a positive HCV antibody result be followed up with a HCV Nucleic Acid Amplification test (061452). Performed By: #### L3100.0390, L3100.0528, L3100.0625, L4600.0100 #### [facility] (refer to report for specific site) refer to report for address and phone number CCP IGG ANTIBODIES Collected: 04/21/2018 Status: F Source: [place] 9:49 AM [facility] REPOSITORY TYPE CODE TESTS RESULT OUT OF RANGE REFERENCE UNITS LAB L4600.0100 0-19 units Normal ANTI-CCP 12 [id number] Result Comment: Negative <20 Weak positive 20 - 39 Moderate positive 40 - 59 Strong positive >59 Performed By: #### L3100.0390, L3100.0528, L3100.0625, L4600.0100 #### [facility] (refer to report for specific site) refer to report for address and phone number URGENT CARE VISIT Observed: 04/19/2018 Status: F Source: [facility] REPORT 10:57 AM [facility] REPOSITORY [facility] [address] [place] [address] OFFICE VISIT Date of Service: 04/19/18 MR#: [id number] Acct: [id number] Name: JIM MAN Rep #: [id number] : 1945 Provider: Merrill JIMENEZ Age/Sex: 72/F Location: [facility] Status: Signed Intake Vital Signs04/19/18 Height 4 ft 11 in Intake Visit Reasons: Urinary tract infection Chief Complaint: Dysuria Allergies Sulfa (Sulfonamide Antibiotics) Allergy (Unknown, Verified 04/19/18 09:21) unknown Medications folic acid 1 mg tablet 1 mg PO DAILY 02/12/18 [History Confirmed 04/19/18] methotrexate sodium 2.5 mg tablet 15 mg PO TU tab 02/12/18 [History Confirmed 04/19/18] metoprolol tartrate 25 mg tablet 25 mg PO BID #60 tab 02/16/18 [Rx Confirmed 04/19/18] prednisone 5 mg tablet 5 mg PO DAILY PRN 02/16/18 [History Confirmed 04/19/18] clopidogrel 75 mg tablet 75 mg PO .COMPLEX #30 tab 03/05/18 [Rx Confirmed 04/19/18] Aspirin E.C. 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) Dyspnea on exertion (Acute) Abnormal stress echo (Acute) Rheumatoid arthritis (Chronic) Hyperlipidemia (Chronic) Atrial fibrillation (Chronic) Meniere disease (Chronic) Fatigue (Acute) Surgical History Stented coronary artery (Chronic) History of carpal tunnel release of both wrists (Chronic 2012) Family History Father CAD (coronary artery disease) Mother Cancer COPD (chronic obstructive pulmonary disease) Social History Smoking Status: Never smoker 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 Patient notes no complaints of back pain, fever, chills, sweats, cough, chest pain/shortness of breath. She notes taking no mczd-qih-eulenlj products to assist with symptoms. She notes no other associated symptoms and no other alleviating or aggravating factors. ROS Const Constitutional: No other (ROS negative x10 other than as noted above) Exam Const General: cooperative, healthy appearing, no acute distress, comfortable Nutritional Appearance: average body habitus Orientation: alert, awake, oriented x3 Neck Neck: normal visual inspection, full ROM, no lymphadenopathy Lymphatic: no lymphadenopathy noted Chest Chest palpation AND inspection: normal inspection of the chest Resp Effort AND Inspection: normal respiratory effort, able to speak in complete sentences, symmetric chest movement Auscultation: Bilateral: Clear to Auscultation Cardio Palpation: normal PMI Rate: regular rate Rhythm: regular rhythm Heart Sounds: S1 normal, S2 normal, no gallops, no murmurs, no rubs Pulses: radial pulses present GI Inspection: normal to inspection Palpation: soft, no hepatosplenomegaly, not firm, no guarding, tender suprapubicly General: No CVA tenderness Skin General: no rashes or lesions noted Neuro General: alert, awake, oriented x3, gait normal Cognition: normal cognition Speech: speech normal Gait: normal gait Motor: muscle tone normal throughout Sensory Exam: no sensory deficits noted Psych Appearance: grossly normal Mental Status: mental status grossly normal Mood: congruent mood Affect: normal affect Speech and Movement: speech and movement normal Attitude: cooperative Thought Process: normal Thought Content: normal Judgment: judgment good Results [facility] Office Urine Color YELLOW Last Edit by Letty Bañuelos on 04/19/18 09:29 Office Urine Clarity Clear Last Edit by Letty Bañuelos on 04/19/18 09:29 Assessment AND Plan 1. Urinary tract infection N39.0 Plan Detail Other Orders Orders: Other Medications New: nitrofurantoin monohyd/m-cryst 100 mg (Macrobid) must mg PO BID 14 caps 0RF ster with a meal/food Additional Comments Macrobid as prescribed today. Appropriate hygiene care is reinforced today. Clear fluids, rest, Tylenol as needed for symptomatic relief. Follow-up with PCP in 2-3 days should symptoms not improved, sooner should symptoms worsen or any other concerns develop. Patient states acknowledging understanding all the above. This note was generated with Mingyianation software. It may contain incorrect words, spelling, and punctuation that were not noted in checking the note before signing. Coding Level of Care Code Off vis,est,level 3 Diagnoses Urinary tract infection N39.0 04/19/18 1057 <Electronically signed by Merrill JIMENEZ> Date Merrill JIMENEZ Cosigner Signature: Date (if applicable) CC: CR - HISTORY AND Observed: 03/26/2018 Status: F Source: [facility] [facility] 3:22 PM [facility] REPOSITORY [facility] Card[facility] Rehab [address] [place] [address] CR - History AND Physical MR#: [id number] Acct: [id number] Name: DONOVANJIM J Rep #: [id number] : 1945 72 From: Gray Angeles RUBBER BLOCK LAYER, SENIOR NET ENGINEER, BS PCP: Care Physician, No Primary DOS: 03/26/18 CR - History AND Physical - General Arrival date:: 03/26/18 Arrival time:: 13:09 Date of Referral:: 03/19/18 Date of CR Evaluation:: 03/26/18 Referring Physician: Dr. Ayo East Primary Diagnosis: PCI w/coronary stent placement - History of Present Cardiac Event Onset Date: Enter Onset Date of cardiac illnesses in Comment field below PTCA or coronary stenting:: Yes - 03/05/2018 Type of Symptoms:: intermittent chest pain, shortness ofbreath during activities. Cardiac testing reveiled abnormal stress echocardiogram and subsequent heart cath was performed. Interventions with present event:: Echo, Echo stress , and heart cath Were there any complications?: none - Medications Home Medications: Ambulatory Orders Medication Instructions Recorded folic acid 1 mg tablet 1 mg PO DAILY 02/12/18 methotrexate sodium 2.5 mg tablet 15 mg PO TU tab 02/12/18 - Allergies Allergies/Adverse Reactions: Allergies Sulfa (Sulfonamide Antibiotics) Allergy (Unknown, Verified 03/23/18 12:17) unknown - Sleep Disorder Evaluation Hx of Sleep Apnea: No Do you snore loudly (louder than talking or can be heard through closed doors)?: No Do you often feel tired/ fatigued/ sleepy during daytime?: Yes Has anyone observed you stop breathing during sleep?: No History of Hypertension (for STOP score): Yes STOP Results: Positive Advanced Directives - Advanced Directives Power of Oncology Radiation Physician: Yes Living Will: Yes Advance Directives Information Provided: No Advance Directives on File: Yes - Yes DNR Order?:: No Past Medical History - Past Medical Illness Medical History: Past Medical History (Last Reviewed 03/23/18 @ 12:18 by [place]) Chest pain (Acute) R07.9 Atherosclerotic heart disease of [place] coronary artery without angina pectoris (Chronic) Onset Date: 03/05/18 I25.10 JENNIFER to mid LAD with a 2.25 X 12 Promus Synergy, followed just distally with another 2.25 X 12 Promus Synergy; PCI to diagonal 1. Dyspnea on exertion (Acute) R06.09 Abnormal stress echo (Acute) R94.39 Rheumatoid arthritis (Chronic) M06.9 Hyperlipidemia (Chronic) E78.5 Atrial fibrillation (Chronic) I48.91 Meniere disease (Chronic) H81.09 - Past Surgical History Surgical History: Past Surgical History (Last Reviewed 03/23/18 @ 12:18 by [place]) Stented coronary artery (Chronic) Z95.5 JENNIFER to mid LAD with a 2.25 X 12 Promus Synergy, followed just distally with another 2.25 X 12 Promus Synergy; PCI to diagonal 1. History of carpal tunnel release of both wrists Onset Date: 2012 Z98.890 - Family History Summary Family History: Family History (Last Updated 03/26/18 @ 13:14 by Gray Angeels, RUBBER BLOCK LAYER, SENIOR NET ENGINEER, BS) Father CAD (coronary artery disease) Mother Cancer COPD (chronic obstructive pulmonary disease) Social History - Smoking History Smoking Status: Never smoker Hx Tobacco Use: No Hx Smoking Exposure: No - Alcohol Use Alcohol Usage: No - Substance Abuse Hx Substance Use: No - Occupation Occupation (List type of work in comments):: Retired - Hobbies, Recreation, Social Activities Hobbies: Sewing - knitting, Bingo and Shuffle Board., Other Recreational Activities: I am able to engage in all my recreational activities Social Environment - Status Marital Status: - Current Living Arrangements Living Environment:: Spouse - significant other - Children How many children do you have?: 2 Do any of your children live nearby?: No - both in [place] - Safety Do you feel safe in your surroundings?: Yes - Assistance Do you need any assistance at home?: none Review of Systems - Review of Systems Hints: Right click = Denies ([place]). Left click = Reports ([place]) Review of Present Symptoms: Reports: Shortness of Breath with Exertion - still occasionally gets short of breath, Fatigue, Heart Arrhythmia/Irregularities - chronic histopry of atrial fibrillation, Appetite - Normal, Sleep - Normal. Denies: Shortness of Breath at Rest, Dizziness/Lightheadedness, Appetite - Special Diet - Pain Is Patient Pain Free?: Yes Pain Location: none Pain Level: 0/10 Risk Factor Assessment - Chief Complaint Chief Complaint: Patient is a 72 yr old female patient who presented to Dr. East for ongoing cardiac symptoms. She was examined and went through some cardiac testing and eventually had two stents and ballooning procedure done here at [facility]. - Vital Signs Temperature: 98.7 F Respiratory Rate: 16 Pulse Ox: 97 Blood Pressure: 120/60 Nailbeds:: pink - Pulse Pulse Rate: 59 - Hypertension Blood Pressure Sitting - Left Arm: 120/60 - Diabetes Nutrition Referral for Diabetes: No - Obesity Height: 5 ft Weight:: 128 lb Weight in Pounds: 128.0 lbs Weight Source: Standing Scale Body Mass Index (BMI): 25.0 Nutritional Referral for Obesity: No - Physical Inactivity Physical Inactivity: Recreational activity - walking dog a couple of miles a day. - Risk Stratification Risk Guidelines: Lowest Risk: Risk Factor for Smoking, Risk Factor for Dyslipidemia, Risk Factor for Diabetes, Risk Factor for Obesity, Risk Factor for Hypertension, Risk Factor for Sedentary Lifestyle, Risk Factor for Depression - For Smoking Smoking Risk Guidelines: Smoking Low Risk: None or quit greater than 6 months ago. Smoking Moderate Risk: Smoker or quit 6 months or less ago. Smoking High Risk: Smoker - For Dyslipidemia Dyslipidemia Risk Guidelines: Low Risk: Moderate Risk: High Risk: 15-25% fat 25.1-29% fat >/= 30% fat. <7% sat fat 7-9% sat fat >9% sat fat. <150 mg chol 150-299 mg chol >/= 300 mg chol. LDL <100 LDL 100-129 LDL >/= 130. Chol/HDL ratio <5.0 Chol/HDL ratio 5.0-6.0 Chol/HDL ratio >6.0. Triglycerides <100 Triglycerides 100-149 Triglycerides >/= 150 - For Diabetes Mellitus Diabetes Risk Guidelines: Diabetes Low Risk: HgA1c <6.5% and/or FBG <120. Diabetes Moderate Risk: HgA1c 6.6-7.9% and/or FBG 120- 180. Diabetes High Risk: HgA1c >/= 8% and/or FBG >180 - For Obesity/Overweight Obesity/Overweight Risk Guidelines: Obesity Low Risk: BMI <25.0. Obesity Moderate Risk: BMI 25-29.9. Obesity High Risk: BMI >/= 30.0 - For Hypertension Hypertension Risk Guidelines: Hypertension Low Risk: Systolic <120 and Diastolic <80. Hypertension Moderate Risk: Systolic 120-139 and Diastolic 80-89. Hypertension High Risk: Systolic >/= 140 and Diastolic >/= 90 - For Sedentary Lifestyle Sedentary Lifestyle Risk Guidelines: Sedentary Lifestyle Low Risk: >/= 1,500 kcal/week. Sedentary Lifestyle Moderate Risk: 700-1,499 kcal/week. Sedentary Lifestyle High Risk: < 700 kcal/week - For Depression Depression Risk Guidelines: Depression Low Risk: Not clinically depressed. Depression Moderate Risk: Mildly depressed. Depression High Risk: Clinically depressed - Family History Family History: Family History (Last Updated 03/26/18 @ 13:14 by Gray Angeles, NIYA, CHARLIE, BS) Father CAD (coronary artery disease) Mother Cancer COPD (chronic obstructive pulmonary disease) Motivation - Motivation to Participate On a scale of 1 to 10, how prepared are you to commit to attending program?: 9 What do you see as barriers to successfully being able to complete the program?: getting used to a routine alarm clock! What do you see as the benefits of succesfully completing the program? In other words, what do you hope to get out of participating in the program?: getting better Are there issues you are dealing with that will interfere with completing the program?: none Do you have a spouse or signficant other, family or friends who will help support you to complete the program?: yes 03/26/18 1322 <Electronically signed by Gray Angeles CRT, SENIOR NET ENGINEER, BS> Date Gray Angeles RUBBER BLOCK LAYER, SENIOR NET ENGINEER, BS Outcome assessment reviewed. Exercise plan approved as documented. Treatment plan and goals support patient needs/abilities. Continue with current plan. I certify the patient demonstrates improvement and remains willing and capable of participation. the patient continues to benefit from cardiac rehab services/training. The patient may continue at current intensity, endurance and modality and progress per protocol. 03/26/18 1522 <Electronically signed by Ayo East MD> Cosigner Signature: Date Ayo East MD CC: Signed OFFICE VISIT REPORT Observed: 03/24/2018 Status: F Source: [place] 2:[address] [place] [address] OFFICE VISIT Date of Service: 03/03/18 MR#: [id number] Acct: [id number] Patient: JIM MAN Rep #: [id number] : 1945 Provider: Ayo East MD Age/Sex: 72/F Location: [facility] [place] Status: Signed Intake Intake Visit Reasons: CATH TEACHING Chief Complaint: Afib Allergies Sulfa (Sulfonamide Antibiotics) Allergy (Unknown, Verified 03/23/18 12:17) unknown Medications folic acid 1 mg tablet 1 mg PO DAILY 02/12/18 [History Confirmed 03/23/18] methotrexate sodium 2.5 mg tablet 15 mg PO TU tab 02/12/18 [History Confirmed 03/23/18] estradiol 0.01% (0.1 mg/gram) vaginal cream 1 g VAGINAL DAILY 02/16/18 [History Confirmed 03/23/18] metoprolol tartrate 25 mg tablet 25 mg PO BID #60 tab 02/16/18 [Rx Confirmed 03/23/18] prednisone 5 mg tablet 5 mg PO DAILY PRN 02/16/18 [History Confirmed 03/23/18] rosuvastatin 20 mg tablet 20 mg PO .COMPLEX 02/16/18 [History Confirmed 03/23/18] Estradiol [Estrace Vaginal Cream] 1 gm VAGINAL DAILY cream.appl 03/05/18 [Rx Confirmed 03/23/18] clopidogrel 75 mg tablet 75 mg PO .COMPLEX #30 tab 03/05/18 [Rx Confirmed 03/23/18] Aspirin E.C. [Ecotrin] 81 mg PO DAILY tab 03/06/18 [Rx Confirmed 03/23/18] Atorvastatin Calcium [Lipitor] 20 mg PO QHS tab 03/06/18 [Rx Confirmed 03/23/18] nitroglycerin 0.4 mg sublingual tablet 0.4 mg SUBLINGUAL Q5- 15M PRN #25 tab 03/19/18 [Rx Confirmed 03/23/18] nitroglycerin 0.4 mg sublingual tablet 0.4 mg SUBLINGUAL Q5- 15M PRN #25 tab 03/19/18 [Rx Confirmed 03/23/18] azithromycin 250 mg tablet See Rx Instructions PO .COMPLEX #6 tab 03/23/18 [Rx Confirmed 03/23/18] Assessment AND Plan Orders Orders: Medications New: clopidogrel (Plavix) 75 mg PO 4 tablets by mouth TODAY, then 1 tablet by mouth daily for h eart cath on Thursday03/05/18 30 tabs 3RF Nursing Note Patient here with partner for cath teaching. Instructed to take Plavix 75 mg, FOUR tablets today, then 1 tablet by mouth daily. RX to [facility] in [place] per her request. Watched video as never had cath. Written instructions given and reviewed verbally with pt: NPO after midnight tomorrow night, take Plavix, ASA and Metoprolol with sips of water Thursday am. Arrive 7am. Plan to be here 6 to 8 hours, will stay overnight if a stent is placed. 03/24/18 1402 <Electronically signed by Ayo East MD> Date Ayo East MD Cosign Signature: Date (if applicable) CC: Elvira A Tanesha URGENT CARE VISIT Observed: 03/23/2018 Status: F Source: [place] REPORT 12:57 PM [facility] REPOSITORY [facility] [address] [place] [address] [address] [place] [address] OFFICE VISIT Date of Service: 03/23/18 MR#: [id number] Acct: [id number] Name: JIM MAN Rep #: [id number] : 1945 Provider: Nba JIMENEZ Age/Sex: 72/F Location: [facility] [place] Status: Signed Intake Vital Signs03/23/18 Height 5 ft 03/23/18 Weight: 128 lb 03/23/18 Body Mass Index (BMI) 25.0 03/23/18 Blood Pressure 122/84 H Intake Visit Reasons: SORE THROAT/ COUGH Chief Complaint: cough Monorail Helper Required: No Accompanied by: self Is patient in pain?: No Allergies Sulfa (Sulfonamide Antibiotics) Allergy (Unknown, Verified 03/23/18 12:17) unknown Medications folic acid 1 mg tablet 1 mg PO DAILY 02/12/18 [History Confirmed 03/23/18] methotrexate sodium 2.5 mg tablet 15 mg PO TU tab 02/12/18 [History Confirmed 03/23/18] estradiol 0.01% (0.1 mg/gram) vaginal cream 1 g VAGINAL DAILY 02/16/18 [History Confirmed 03/23/18] metoprolol tartrate 25 mg tablet 25 mg PO BID #60 tab 02/16/18 [Rx Confirmed 03/23/18] prednisone 5 mg tablet 5 mg PO DAILY PRN 02/16/18 [History Confirmed 03/23/18] rosuvastatin 20 mg tablet 20 mg PO .COMPLEX 02/16/18 [History Confirmed 03/23/18] Estradiol [Estrace Vaginal Cream] 1 gm VAGINAL DAILY cream.appl 03/05/18 [Rx Confirmed 03/23/18] clopidogrel 75 mg tablet 75 mg PO .COMPLEX #30 tab 03/05/18 [Rx Confirmed 03/23/18] Aspirin E.C. 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) Dyspnea on exertion (Acute) Abnormal stress echo (Acute) Rheumatoid arthritis (Chronic) Hyperlipidemia (Chronic) Atrial fibrillation (Chronic) Meniere disease (Chronic) Surgical History Stented coronary artery (Chronic) History of carpal tunnel release of both wrists (Chronic 2012) Family History Father CAD (coronary artery disease) Mother Cancer Social History Smoking Status: Never smoker 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 Patient states that the sore throat has been consistent and describes it as sharp. She denies fever, chills, sweats. No nausea, vomiting, diarrhea. She does state that she had a angioplasty and stent placement 2 weeks ago with no complications until several days ago. No other associated symptoms or alleviating/aggravating factors. ROS Const Constitutional: No fever(s), chills, headache(s), night sweats or abnormal sleep pattern ENT ENT: Positive for nasal discharge, nasal congestion and post nasal drip; no headache(s), ear pain, ear discharge or sore throat Resp Respiratory: Positive for cough Cough: Yes productive and pain with cough; no wheezing, hemoptysis or shortness of breath Cardio Cardiology: No chest pain at rest or shortness of breath Neuro Neurology: No headache(s), behavioral changes or confusion Psych Psychiatric: No abnormal sleep pattern, No behavioral changes, No confusion Aller/Imm Allergy/Immunologic: No wheezing Exam Const General: cooperative, well developed HENID Head: normal to inspection Ears: hearing grossly normal bilaterally Nose: nasal discharge clear Mouth: oral mucosae normal Throat: abnormal tonsil bilaterally, postnasal drainage Resp Effort AND Inspection: normal respiratory effort, no audible wheezes, not labored Auscultation: Bilateral: Clear to Auscultation Cardio Palpation: normal PMI Rate: regular rate Rhythm: regular rhythm Neuro General: alert, CN's II-XI intact bilaterally Psych Appearance: grossly normal Mental Status: mental status grossly normal Assessment AND Plan Problems 1. URI, acute J06.9 Status Acute Plan Due to advanced age, taking methotrexate and multiple comorbidities and x-ray of the chest was ordered which was reviewed and interpreted by myself finding no acute signs of cardiopulmonary disease. Azithromycin as prescribed today. Encouraged to get plenty of rest, drink lots of clear liquids, and use Tylenol or Ibuprofen (unless contraindicated) for fever and comfort. Patient also educated on other symptomatic management techniques. To be seen in 7-10 days if no improvement; sooner if worsening of symptoms. Patient advised of potential red flags and when appropriate report to the ED. Patient verbalized understanding and agreement with all the above. Orders Orders: Medications New: Coding Level of Care Code Off vis,new,level 4 Diagnoses URI, acute J06.9 03/23/18 1257 <Electronically signed by Nba JIMENEZ> Date Nba JIMENEZ Cosigner Signature: Date (if applicable) CC: CHEST PA AND LATERAL Observed: 03/23/2018 Status: F Source: [place] 12:28 PM [facility] REPOSITORY [facility] [place] [address] Chest PA and Lateral MR#: [id number] Acct: [id number] Name: JIM MAN Rep #: [id number] : 1945 F 72 From: Carlos Isbell MD PCP: Care Physician, No Primary Status: REG CLI Study: Chest PA and Lateral Date of Exam: 03/23/18 Exam# [id number] Ordering Dr: Nba Jordan STUDY: X-RAY CHEST REASON FOR EXAM: Female, 72 years old. Cough. TECHNIQUE: 2 views, PA and lateral projections. COMPARISON: Chest 03/03/2018. FINDINGS: No tubes identified. The lungs appear clear of active focal pulmonary consolidation, air bronchograms, large pleural effusion, pneumothorax or abnormally dilated pulmonary vascularity and also appear well expanded. There is no demonstrated pleural abnormality identified. Borderline enlarged heart, heart size may be mildly accentuated by mild rotation. Trachea near midline. Nonacute mediastinum and celia with numerous mostly subcarinal small calcified lymph nodes seen. Normal visualized pulmonary arteries. Normal visualized aortic arch and descending thoracic aorta. Nonacute visualized moderate to severe degenerative thoracic spine noted. Mild scoliosis apex right seen lower thoracic spine, may be positional. Normal visualized ribs, clavicles and shoulders. There is no demonstrated abnormality of the visualized soft tissue structures of the upper abdomen. No subdiaphragmatic free air seen grossly. RAD/Chest PA and Lateral IMPRESSION: Nonacute appearing x-ray examination of the chest. No finding of active focal pulmonary consolidation air bronchograms identified. Borderline cardiomegaly, heart size may be accentuated by mild rotation and scoliosis as described. Clinical correlation recommended. Electronically Signed: Carlos Isbell, at 13:34 EDT Tel , Service support , CC: No Primary Care Physician; Nba JIMENEZ Repack Room Worker: Signed CARDIOLOGY VISIT Observed: 03/19/2018 Status: F Source: [place] [facility] 4:16 PM [facility] REPOSITORY [facility] [address] [place] [address]. [address] [place] [address] OFFICE VISIT Date of Service: 03/19/18 MR#: [id number] Acct: [id number] Name: JIM MAN Rep #: [id number] : 1945 Provider: Sharla Mayorga Age/Sex: 72/F Location: [facility] Status: Signed HPI HPI Chief Complaint: Afib Details: JIM MAN, is a 72 F who presents to the office today for a hospital follow up. She established with us for a pre-operative assessment. She has a history of paroxysmal atrial fib. She had an abnormal stress which led to a heart cath. She needed stenting to her LAD and PTCA to the ostial of the diagonal. Pt sts that she had chest pain twice since she had her stent. She was carrying something heavy approx 150 feet and developed chest pain. She did this about 8 times. It was not on a level surface. She chest hurt after this. She took a NTG and it took the discomfort away. She rated this as an 8/10. She did have one other episode on chest pain and this was short lasting. Previous to her heart cath, she was having chest pain with any activity. Yesterday she notes that she was fatigued. She does not have any worsening SOB. She does not have any palpitations. She does not have any lightheadedness/Dizziness. She does not have any near syncope/syncope. She does have some swelling, this is not new. She is concerned about her bruising. Intake Vital Signs03/19/18 Height 5 ft 03/19/18 Weight: 128 lb 03/19/18 Body Mass Index (BMI) 25.0 03/19/18 Blood Pressure 120/60 Intake Visit Reasons: S/P CATH Monorail Helper Required: No Accompanied by: Significant Other Is patient in pain?: No Allergies Sulfa (Sulfonamide Antibiotics) Allergy (Unknown, Verified 03/19/18 09:40) unknown Medications folic acid 1 mg tablet 1 mg PO DAILY 02/12/18 [History Confirmed 03/18/18] methotrexate sodium 2.5 mg tablet 15 mg PO TU tab 02/12/18 [History Confirmed 03/18/18] estradiol 0.01% (0.1 mg/gram) vaginal cream 1 g VAGINAL DAILY 02/16/18 [History Confirmed 03/18/18] metoprolol tartrate 25 mg tablet 25 mg PO BID #60 tab 02/16/18 [Rx Confirmed 03/18/18] prednisone 5 mg tablet 5 mg PO DAILY PRN 02/16/18 [History Confirmed 03/18/18] rosuvastatin 20 mg tablet 20 mg PO .COMPLEX 02/16/18 [History Confirmed 03/18/18] Estradiol [Estrace Vaginal Cream] 1 gm VAGINAL DAILY cream.appl 03/05/18 [Rx Confirmed 03/18/18] clopidogrel 75 mg tablet 75 mg PO .COMPLEX #30 tab 03/05/18 [Rx Confirmed 03/18/18] Aspirin E.C. 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) Dyspnea on exertion (Acute) Abnormal stress echo (Acute) Rheumatoid arthritis (Chronic) Hyperlipidemia (Chronic) Atrial fibrillation (Chronic) Meniere disease (Chronic) Surgical History Stented coronary artery (Chronic) History of carpal tunnel release of both wrists (Chronic 2012) Family History Father CAD (coronary artery disease) Mother Cancer Social History Smoking Status: Never smoker 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 Const Const: Positive for other (Post PCI 03/05 but had chest pain Sat night, went away with 1 nitro); negative for fatigue, weakness, body ache, fever(s), headache(s), chills, frequent falls, night sweats, daytime sleepiness, difficulty sleeping, excessive sweating, weight gain, weight loss, increased appetite, poor appetite or anorexia Eyes Eyes: Negative for blind spots, loss of peripheral vision, transient loss of vision, blurry vision, change in vision, double vision, floaters, tunnel vision or other ENT ENT: Negative for headache(s), dizziness, hearing loss, tinnitus, Nosebleed/epistaxis, balance problems, post nasal drip, lip swelling, tongue swelling, bleeding gums, hoarseness, neck pain, dry mouth or other Cardio Chest Pain: Yes (Had a couple episodes since PCI, one went away w/burp, 2nd req. nitro) Frequency: other (a couple episode) Character: dull (aching) Onset: exercise Location: mid sternal Duration: minutes (2nd episode lasted 30 minutes till she took nitro, she also felt tired w it.) Exacerbation: rest, other (nitro) Palpitations: No Edema: None Muscle aches with walking: None Resp Respiratory: Negative for SOB with activity, SOB at rest, SOB orthopnea\SOB lying down, Coughing up blood/hemoptysis, chest congestion, pain on inspiration, snoring, stridor, wheezing, crackles, paroxysmal nocturnal dyspnea or other GI GI: Negative nausea, vomiting, heartburn, constipation, belching, bloating, cramping, vomiting blood/hematemesis, bright, red blood in stools, black,tarry stools, loose stools, Difficulty Swallowing or other : Negative for hematuria, frequent nighttime urination/ nocturia, erectile dysfunction or abnormal vaginal bleeding Musc Musc: Negative for balance problems, muscle aches/ myalgia, muscle weakness or joint pain Skin Skin: Negative redness, non-healing lesions, rash, unusual bruising, skin ulcer, wounds, jaundice or other Neuro Neuro: Negative for weakness, headache(s), frequent falls, blurry vision, double vision, dizziness, lightheadedness, near syncope, syncope, orthostatic symptoms, confusion, memory loss, restless legs, vertigo, seizures, lack of coordination or other [place] Hematologic/Lymphatic: Negative for easy bleeding, easy bruising, enlarged lymph nodes or other Endo Endo: Negative for fatigue, excessive sweating, cold intolerance, heat intolerance, flushing, increased thirst/drinking, increased hunger, hair loss, hair growth or other Psych Psych: Negative for anxiety, depression, thoughts of harming anyone, thoughts of harming yourself, visual hallucinations, panic attacks or audible hallucinations Allergy Allergy/Immunology: Negative for lip swelling, Negative for tongue swelling, Negative for rash, Negative for throat swelling, Negative for hives Cardiology Exam Const Appearance: cooperative, no acute distress and well developed Orientation: alert, awake and oriented x3 Head Head: normocephalic and atraumatic Mouth: moist mucous membranes Eyes General: appearance normal, both eyes and all related structures Conjunctivae: conjunctivae normal Pupils: PERRL EOM: EOM intact bilaterally Neck Neck: normal visual inspection, no lymphadenopathy and no JVD Carotids: Negative bruit Neck Mass: Negative Neck mass Chest Chest inspection: normal inspection of the chest and symmetric chest movement Auscultation: Bilateral: Clear to Auscultation Cardio Palpation: normal PMI Rate: regular rate Rhythm: regular rhythm Heart sounds: S1 normal and S2 normal; negative rub, gallop or murmur GI GI: normal to inspection, soft, no hepatosplenomegaly and bowel sounds present; negative tender Neuro General: alert, awake, oriented x3, CN's II-XI intact bilaterally and moves all extremities Extremities Pulses: Normal: Right Posterior Tibial Pulse, Left Posterior Tibial Pulse, Right Radial Pulse, Left Radial Pulse Lower Extremity Edema: None: Bilateral Psych Psychological: normal affect Supplemental Info Echocardiogram in 2018 demonstrated The estimated ejection fraction is 65 %. Normal diastology for age. Mild (1+) posteriorly directed mitral valve insufficiency. Mild (1+) tricuspid valve insufficiency. Right ventricular systolic pressure estimated to be 29 mmHg. There is no comparison study available. Stress Echocardiogram in 2018 demonstrated The estimated ejection fraction is 60 %. Abnormal, adequate, treadmill echocardiogram. Positive for ischemia by EKG and echocardiographic criteria. No anginal symptoms noted. Rare PVCs and ventricular couplets noted during exercise. The patient developed [address] segment depression along the inferior lateral leads at peak exercise which normalized by about 59 seconds into recovery. In addition the patient appeared to have mid anterior hypokinesis seen in 3 views on echocardiography. Test was terminated did due to dyspnea. Final LVEF around 65%. Heart cath: Single vessel CAD of the LAD and DIAG#1 Normal LV size, wall motion,and systolic function Successful PTCA/JENNIFER of the mid LAD with a 2.25 x 12 Promus Synergy, post dilated proximally with a 2.5 x 8 NC, followed just distal to stent with another 2.25 x 12 Promus Synergy; 85%-->0%, no dissection. Successful PCI with PTCA to the ostial DIAG#1 with a 1.5 and 2.0 Emerge balloon; 85%-->50%, slight retrograde dissection that does not affect flow. No additional stenting performed due to AMY III flow, lack of angina and acute angle of DIAG branch. Successful Mynx closure Assessment AND Plan 1. Atherosclerosis of [place] coronary artery of [place] heart without angina pectoris I25.10 JENNIFER to mid LAD with a 2.25 X 12 Promus Synergy, followed just distally with another 2.25 X 12 Promus Synergy; PCI to diagonal 1. Plan Patient did have 2 episodes of chest discomfort. These are both with activity. However she was able to participate in similar activities and not have chest discomfort. Did give her a prescription for nitroglycerin. She was advised that if she needs to use her nitroglycerin more than once a week she should call her office. She will be referred to cardiac rehab. She is aware that she needs to stay on her Plavix and aspirin for a minimum of 6 months preferably a year. She is aware that her bladder surgery will need to be postponed With patient's fatigue and questionable vaginal bleeding will obtain a CBC. 2. Pure hypercholesterolemia E78.00; E78.0 Plan Patient will continue with current medical management 3. Paroxysmal atrial fibrillation I48.0 Plan Patient has had a few palpitations. We will continue to monitor. If she does 30 further recurrence may need to consider anticoagulation Plan Detail Other Orders Orders: Other Medications New: Additional Comments This patient was discussed with Dr. East. We will follow patient closely. Thank you for allowing us to participate in patient's plan of care, if you have any questions please do not hesitate to call. This note was generated using a voice recognition system and there may be incorrect words, spelling or punctuation errors that were not noted when reviewing the office note prior to saving. Follow Up 6 Weeks (MMM/LAURA) 03/19/18 (Please fax referral to cardiac rehab) Coding Level of Care Code Off vis,est,level 3 Diagnoses Atherosclerosis of [place] coronary artery of [place] heart without angina pectoris I25.10 [place] vs. transplanted heart: [place] heart Pure hypercholesterolemia E78.00; E78.0 Hyperlipidemia type: pure hypercholesterolemia Paroxysmal atrial fibrillation I48.0 Atrial fibrillation type: paroxysmal Coding Level of Care Code Off vis,est,level 3 Diagnoses Atherosclerosis of [place] coronary artery of [place] heart without angina pectoris I25.10 [place] vs. transplanted heart: [place] heart Pure hypercholesterolemia E78.00; E78.0 Hyperlipidemia type: pure hypercholesterolemia Paroxysmal atrial fibrillation I48.0 Atrial fibrillation type: paroxysmal 03/19/18 1616 <Electronically signed by Sharla JIMENEZ> Date Sharla JIMENEZ Cosigner Signature: Date (if applicable) CC: No Primary Care Physician CBC W/DIFF, AUTOMATED Collected: 03/19/2018 Status: F Source: [facility] 12:13 PM [facility] REPOSITORY TYPE CODE TESTS RESULT OUT OF RANGE REFERENCE UNITS LAB L100.1000 4.4-11.0 K/mm3 Normal WBC 7.8 LAB L100.1200 4.2-5.4 M/mm3 Low RBC 3.88 LAB L100.1300 12.0-15.0 g/dl Normal HGB 12.4 LAB L100.1400 37-47 % Normal HCT 37.5 LAB L100.1500 81-99 fL Normal MCV 96.6 LAB L100.1600 27.0-32.0 pg Normal MCH 32.0 LAB L100.1700 32-36 g/gl Normal MCHC 33.1 LAB L100.1810 11.6-14.6 % Normal RDW CV 13.8 LAB L100.1820 35.1-43.9 fl High RDW SD 47.2 LAB L100.1900 150-450 K/mm3 Normal PLT 337 LAB L100.2000 6.2-12.0 fl Normal MPV 9.7 LAB L100.2100 47-70 % Normal NEUT% 54.5 LAB L100.2200 19-41 % Normal LY% 32.5 LAB L100.2300 0-10 % Normal MONO% 8.9 LAB L100.2400 0-5 % Normal EO% 3.0 LAB L100.2500 0-1 % Normal BASO% 1.0 LAB L100.2550 0.0-0.9 % Normal IM GRAN % 0.100 Result Comment: IG% - Immature Granulocytes (promyelocytes, myelocytes and metamyelocytes) > 1% indicates that a LEFT SHIFT is Present. LAB L100.2620 2.0-7.7 X10 3/uL Normal Absolute Neut 4.2 LAB L100.2720 0.83-4.51 X10 3/ul Normal Absolute Lymph 2.52 Performed By: #### L100.0100 #### [facility] [address] [place], [address] 12 LEAD EKG PERFORMED Observed: 03/19/2018 Status: F Source: [facility] BY [facility] 11:16 AM [facility] REPOSITORY [facility] [address] [place] [address] 12 Lead EKG performed by [facility] 03/19/18 1115 MR#: [id number] Acct: [id number] Name: JIM MAN Rep #: [id number] : 1945 72 From: Ayo East MD Attending Dr: Sharla Mayorga Status: DEP AMB Ordering Dr: Ayo East MD Date: 03/19/18 [place] [facility] [place] Sex: F C Admitted: [facility]/12 Lead EKG performed by [facility] ECG Report Interpretation Sinus Bradycardia Low voltage in precordial leads. -RSR(V1) -nondiagnostic. ABNORMAL Electronically signed on 05/28/2018 at 15:30 by Ayo East Software Version [id number] 05/28/18 1536 Date Ayo East MD CC: No Primary Care Physician Date Dictated: 03/19/18 1115 Date Transcribed: 03/19/181114 Repack Room Worker: Signed 12 LEAD ELECTROCARDIOGRAM Observed: 03/12/2018 Status: F Source: [place] [facility] Cardiovascular Services [address] [place] [address] 12 Lead EKG 03/06/18 0522 MR#: [id number] Acct: [id number] Name: WILNER MANRA Frost Rep #: [id number] : 1945 72 From: Estuardo Mortensen MD Attending Dr: Ayo East MD Status: DIS FRIDA Ordering Dr: Ayo East MD Date: 03/06/18 Location: ICU Sex: F C Admitted: 03/05/18 Test Reason : AM EKG Blood Pressure : / mmHG Vent. Rate : 060 BPM Atrial Rate : 060 BPM P-R Int : 134 ms QRS Dur : 082 ms QT Int : 440 ms P-R-T Axes : 061 049 030 degrees QTc Int : 440 ms Normal sinus rhythm Low voltage QRS Borderline ECG Confirmed by DARY PAZ, ESTUARDO ([id number]), graphics editor CHAS MERCEDES ([id number]) on 03/12/2018 3:01:38 PM Referred By: Ayo East Confirmed By:ESTUARDO MORTENSEN MD 03/12/18 1501 Date Estuardo Mortensen MD CC: No Primary Care Physician; Ayo East MD Signed 12 LEAD ELECTROCARDIOGRAM Observed: 03/12/2018 Status: F Source: [place] 3:02 PM [facility] REPOSITORY [facility] Cardiovascular Services [address] [facility] [address] 12 Lead EKG 03/05/18 1046 MR#: [id number] Acct: [id number] Name: WILNER MANRA Frost Rep #: [id number] : 1945 72 From: Estuardo Mortensen MD Attending Dr: Ayo East MD Status: DIS FRIDA Ordering Dr: Ayo East MD Date: 03/05/18 Location: ICU Sex: F C Admitted: 03/05/18 Test Reason : POST PCI Blood Pressure : / mmHG Vent. Rate : 056 BPM Atrial Rate : 056 BPM P-R Int : 142 ms QRS Dur : 078 ms QT Int : 456 ms P-R-T Axes : 061 053 042 degrees QTc Int : 440 ms Sinus bradycardia Low voltage QRS Borderline ECG Confirmed by ESTUARDO MORTENSEN MD ([id number]), graphics editor CHAS MERCEDES ([id number]) on 03/12/2018 3:02:28 PM Referred By: Ayo East Confirmed By:ESTUARDO MORTENSEN MD 03/12/18 1502 Date Estuardo Mortensen MD CC: No Primary Care Physician; Ayo East MD Signed DISCHARGE INSTRUCTION Observed: 03/08/2018 Status: F Source: [place] 4:44 PM [facility] REPOSITORY [facility] Medical Records Department [address] [place] [address] Instructions for Home/Discharge Instructions 03/05/18 1545 MR#: [id number] Acct: [id number] Name: JIM MAN Rep #: [id number] : 1945 72 From: Sharla JIMENEZ PCP: Care Physician, No Primary Status: DIS FRIDA Discharge Diet: Low fat/ Low Cholesterol Discharge Activity: Return to Normal Activity May shower in (days): 1 Lifting Restrictions: 10 pounds and also avoid any pushing or pulling for 3 days after your test. Call your doctor if your incision/area has: Continuous Slow Oozing, Sudden Increased Bleeding, Increased Pain/ Swelling, Foul Smelling Discharge, Swelling at the incision site Call your doctor if you observe: Fever of 101 or Higher, Shortness of breath, Chest pain Remove Dressing in (days):: 1 Additional Dressing/Incision Instructions:: Keep the dressing (bandage) on until the next morning. You may then shower, but do not take a tub bath for 5 days after your test. It is normal to have some tenderness and discomfort at the puncture site. Sometimes bruising also occurs. However, if pain, numbness, or coldness occurs below the puncture site (in your leg, toes, arms or fingers) call your doctor at once. You may have a small, marble sized knot at the puncture site. This is normal. Do not rub it. It will go away in 4-6 weeks. Bleeding can occur from the area where the puncture was done. Blood may spurt or drip from the site. If blood spurts, apply pressure right away to stop bleeding and call 911. Although rare, bleeding into the tissue (hematoma) can also occur. If this happens, a large, firm area goose egg under the skin will appear. If any of these occur, lie down as flat as you can and have someone apply firm pressure to the cath site with a gauze pad or a clean washcloth for 10-15 minutes. Call 911 or go to the Emergency Department. Additional Instructions: We will rediscuss surgical clearance in 6 months. We would prefer you to stay on the plavix for at least one year before holding it for any reason At your next OV we will talk about cardiac rehab. Allergies/Adverse Reactions: Allergies Sulfa (Sulfonamide Antibiotics) Allergy (Unknown, Verified 02/16/18 11:12) unknown Medications to take at Discharge aspirin 81 mg tablet,delayed release 81 mg PO DAILY 02/12/18 folic acid 1 mg tablet 1 mg PO DAILY 02/12/18 methotrexate sodium 2.5 mg tablet 15 mg PO TU tab 02/12/18 estradiol 0.01% (0.1 mg/gram) vaginal cream 1 g VAGINAL DAILY 02/16/18 metoprolol tartrate 25 mg tablet 25 mg PO BID #60 tab 02/16/18 prednisone 5 mg tablet 5 mg PO DAILY PRN 02/16/18 rosuvastatin 20 mg tablet 20 mg PO .COMPLEX 02/16/18 Estradiol [Estrace Vaginal Cream] 1 gm VAGINAL DAILY cream.appl 03/05/18 clopidogrel 75 mg tablet 75 mg PO .COMPLEX #30 tab 03/05/18 Orders to be completed after discharge: Phase II, Outpatient Cardiac Rehab Location: None Selected Primary Care Physician: Care Physician,No Primary [Primary Care Provider] - Test Results: Test results from this visit will be discussed in further detail at your follow-up appointment, if applicable. Please Follow Up With: Ayo East MD When: 03/19 at 11AM Proposed Discharge Date: 03/06/18 Cardiac Rehabilitation Info Cardiac Rehabilitation Program Information: Cardiac Rehabilitation is important for patients like you who are recovering from a heart problem. Cardiac rehabilitation programs are recognized as integral to the continued care of the patient with coronary heart disease. The cardiac rehabilitation program is designed to optimize a patient's physical, psychological, and social functioning. Health child care cook work in cardiac rehabilitation programs and assist you with getting the treatments you need to get stronger and healthier - like exercise, healthy eating habits, and medications. Cardiac rehabilitation has been show to help people with heart problems live longer and have better life enjoyment than people who do not go to cardiac rehabilitation. Please contact the Cardiac Rehabilitation Program at [facility] at in two weeks if you have not heard from them. 03/08/18 1644 <Electronically signed by Sharla JIMENEZ> Date Sharla JIMENEZ CC: No Primary Care Physician DISCHARGE SUMMARY Observed: 03/06/2018 Status: F Source: [place] 9:54 AM [facility] REPOSITORY [facility] Medical Records Department [address] [place] [address] Discharge Summary 03/06/18 0952 MR#: [id number] Acct: [id number] Name: JIM MAN Rep #: [id number] : 1945 72 From: Umesh Lopez MD PCP: Care Physician, No Primary Status: [facility] Location: ICU [id number] Discharge Summary Date of Admission: 03/05/18 Date of Discharge: 03/06/18 Summary: Final diagnoses: 1. Coronary artery disease Procedures performed: 1. Coronary angiography 2. Drug-eluting stent placement to the mid left anterior descending artery Hospital course: Patient had an abnormal stress test. She was therefore brought for coronary angiography. Coronary angiography revealed tight left anterior descending artery lesion. Subsequently percutaneous intervention was performed with placement of 2 drug-eluting stents. Excellent results were noted. Overnight the patient did well. No angina or shortness of breath. Her groin appears stable with no hematoma. Vital signs are stable. Medications: Please see discharge instructions. Final disposition: Discharged home in stable condition. 03/06/18 0954 <Electronically signed by Umesh Lopez MD> Date Umesh Lopez MD Cosigner Signature (if applicable): Date CC: No Primary Care Physician; Umesh Lopez MD Signed CBC-COMPLETE BLOOD CNT Collected: 03/06/2018 Status: F Source: [place] NO DIFF 4:50 AM [facility] REPOSITORY TYPE CODE TESTS RESULT OUT OF RANGE REFERENCE UNITS LAB L100.1000 4.4-11.0 K/mm3 Normal WBC 7.6 LAB L100.1200 4.2-5.4 M/mm3 Low RBC 3.48 LAB L100.1300 12.0-15.0 g/dl Low HGB 11.3 LAB L100.1400 37-47 % Low HCT 33.5 LAB L100.1500 81-99 fL Normal MCV 96.3 LAB L100.1600 27.0-32.0 pg High MCH 32.5 LAB L100.1700 32-36 g/gl Normal MCHC 33.7 LAB L100.1810 11.6-14.6 % Normal RDW CV 14.0 LAB L100.1820 35.1-43.9 fl High RDW SD 47.2 LAB L100.1900 150-450 K/mm3 Normal PLT 251 LAB L100.2000 6.2-12.0 fl Normal MPV 9.7 Performed By: #### L100.0500 #### [facility] [address] [place], [address] BASIC METABOLIC Collected: 03/06/2018 Status: F Source: [facility] PROFILE (BMP) 4:50 AM [facility] REPOSITORY TYPE CODE TESTS RESULT OUT OF RANGE REFERENCE UNITS LAB L501.0100 74-106 mg/dL Normal GLU 105 Result Comment: Fasting Glucose result from 100 to 125 mg/dL suggests IMPAIRED HOMEOSTASIS per A.D.A. criteria. Please note revised GLUCOSE reference range effective 2017. LAB L501.1000 7-18 mg/dL Normal BUN 13 LAB L501.1100 0.55-1.02 mg/dL Normal CREAT,SERUM 0.63 Result Comment: The validity of the calculated GFR AND GFRAA in patients over 70 years has not been determined. Clinical correlation is essential. LAB L501.1110 >60 mL/min Normal EST GFR 99 Result Comment: Non- GFR Calc LAB L501.1115 >60 mL/min Normal EST GFR - AA 120 Result Comment: GFR Calc LAB L501.1255 ml/min Normal Estimated CRCL 46.92 LAB L501.1300 10-20 RATIO High BUN/CRE 20.7 LAB L501.2200 8.5-10 mg/dL Low .1 CA 8.4 LAB L501.5300 136-14 mmol/L Normal 5 NA 144 LAB L501.5600 3.5-5. mmol/L Normal 1 K 4.4 LAB L501.5900 98-107 mmol/L High CL 112 LAB L501.6100 21.0-3 mmol/L Normal 2.0 CO2 25.0 LAB L501.6200 5-15 Normal GAP 7 Performed By: #### L500.2500 #### [facility] [address] [facility] [place], [address] ACT ACTIVATED CLOTTING Collected: 03/05/2018 Status: F Source: [place] TIME 10:07 AM [facility] REPOSITORY TYPE CODE TESTS RESULT OUT OF RANGE REFERENCE UNITS LAB L9100.0100 74-137 sec High ACTk CLOT 186 TIME Performed By: #### L9100.0100 #### [facility] Point of Care [address] [place] [address] CHEST PA AND LATERAL Observed: 03/03/2018 Status: F Source: [place] 3:04 PM [facility] REPOSITORY [facility] Imaging Services [address] [place] [address] Chest PA and Lateral MR#: [id number] Acct: [id number] Name: DONOVANJIM J Rep #: [id number] : 1945 F 72 From: Gume Crenshaw MD PCP: Care Physician, No Primary Status: PRE SDC Study: Chest PA and Lateral Date of Exam: 03/03/18 Exam# [id number] Ordering Dr: Ayo East MD STUDY: X-RAY CHEST REASON FOR EXAM: Female, 72 years old. Abnormal stress test. Preop TECHNIQUE: Frontal and lateral views of the chest. COMPARISON: None. FINDINGS: The lungs are clear and expanded. There is no demonstrated pleural abnormality. Normal size heart. Normal mediastinum and celia. Normal visualized pulmonary arteries. Normal visualized aortic arch and descending thoracic aorta. There are diffuse degenerative changes of the visualized thoracic spine. Normal visualized ribs, clavicles, and shoulders. There is no demonstrated abnormality of the visualized soft tissue structures of the upper abdomen. RAD/Chest PA and Lateral IMPRESSION: No acute chest disease. Electronically Signed: Gume Crenshaw MD at 15:07 EDT , Service support , CC: No Primary Care Physician; Ayo East MD Repack Room Worker: Signed PROTHROMBIN TIME W/INR Collected: 03/03/2018 Status: F Source: [place] 2:55 PM [facility] REPOSITORY Order Comment: Comments: For heart cath Comments: For heart cath TYPE CODE TESTS RESULT OUT OF RANGE REFERENCE UNITS LAB L300.4150 11.7-14.9 SECONDS Normal PROTIME 13.5 LAB L300.4200 Normal INR 1.0 Performed By: #### L300.3900, L300.4310, L100.0500 #### [facility] [address] [place], [address] PARTIAL THROMBOPLAST Collected: 03/03/2018 Status: F Source: [place] TIME 2:55 PM [facility] REPOSITORY Order Comment: Comments: For heart cath Comments: For heart cath TYPE CODE TESTS RESULT OUT OF RANGE REFERENCE UNITS LAB L300.4310 24.1-36.2 Seconds Normal PTT 28.7 Performed By: #### L300.3900, L300.4310, L100.0500 #### [facility] [address] [place], [place], [address] CBC-COMPLETE BLOOD CNT Collected: 03/03/2018 Status: F Source: [place] NO DIFF 2:55 PM [facility] REPOSITORY Order Comment: Comments: For heart cath Comments: For heart cath TYPE CODE TESTS RESULT OUT OF RANGE REFERENCE UNITS LAB L100.1000 4.4-11.0 K/mm3 Normal WBC 7.1 LAB L100.1200 4.2-5.4 M/mm3 Low RBC 4.07 LAB L100.1300 12.0-15.0 g/dl Normal HGB 13.1 LAB L100.1400 37-47 % Normal HCT 38.7 LAB L100.1500 81-99 fL Normal MCV 95.1 LAB L100.1600 27.0-32.0 pg High MCH 32.2 LAB L100.1700 32-36 g/gl Normal MCHC 33.9 LAB L100.1810 11.6-14.6 % Normal RDW CV 13.8 LAB L100.1820 35.1-43.9 fl High RDW SD 46.0 LAB L100.1900 150-450 K/mm3 Normal PLT 312 LAB L100.2000 6.2-12.0 fl Normal MPV 9.8 Performed By: #### L300.3900, L300.4310, L100.0500 #### [facility] [address] [place], [place], [address] BASIC METABOLIC Collected: 03/03/2018 Status: F Source: JAMAL PROFILE (BMP) 2:55 PM [facility] REPOSITORY Order Comment: Comments: For heart cath Comments: For heart cath TYPE CODE TESTS RESULT OUT OF RANGE REFERENCE UNITS LAB L501.0100 74-106 mg/dL Normal GLU 90 Result Comment: Please note revised GLUCOSE reference range effective 2017. LAB L501.1000 7-18 mg/dL High BUN 19 LAB L501.1100 0.55-1.02 mg/dL Normal CREAT,SERUM 0.75 Result Comment: The validity of the calculated GFR AND GFRAA in patients over 70 years has not been determined. Clinical correlation is essential. LAB L501.1110 >60 mL/min Normal EST GFR 81 Result Comment: Non- GFR Calc LAB L501.1115 >60 mL/min Normal EST GFR - AA 98 Result Comment: GFR Calc LAB L501.1300 10-20 RATIO High BUN/CRE 25.5 LAB L501.2200 8.5-10.1 mg/dL CA Normal 9.3 LAB L501.5300 136-145 mmol/L NA Normal 142 LAB L501.5600 3.5-5.1 mmol/L K Normal 4.0 LAB L501.5900 98-107 mmol/L CL Normal 106 LAB L501.6100 21.0-32.0 mmol/L Normal CO2 27.0 LAB L501.6200 5-15 Normal GAP 9 Performed By: #### L500.2500 #### [facility] [address] [place], [address] STRESS TEST ECHO W/O Observed: 03/02/2018 Status: F Source: [place] CONTRAST 3:53 PM [facility] REPOSITORY [facility] Cardiovascular Services [address] [place] [address] Stress Test Echo w/o Contrast MR#: [id number] Acct: [id number] Name: JIM MAN Rep #: [id number] : 1945 72 From: Ayo East MD Primary Care: Care Physician, No Primary Status: REG CLI Ordering Dr: Ayo East MD Sex: F C Reason For Study: Dyspnea; Atrial Fibrillation Stress Results Protocol: Margarito Protocol Maximum Predicted HR: 149 bpm Target HR: 127 bpm% Max imum Predicted HR: 105 % DurationHeart Rate Stage (mm:ss) (bpm) BPCom ment Baseline 67 120/82 No Chest Pain Margarito Protocol Stage I 3:00 11 6 136/70No Chest Pain Margarito Protocol Stage II 3:00 13 1 156/78No Chest Pain; Mild Dyspnea Margarito Protocol Stage III 2:00 15 7 160/72No Chest Pain; Moderate Dyspnea Recovery 83 118/70 No Chest Pain Stress Duration: 8:00 mm:ss Maximum Stress HR: 157 bpmM ETS: 10 Baseline Echocardiogram Findings The estimated ejection fraction is 60 %. Stress Echo Wall motion Data Resting WMIntermediate WMStress WM Resting Wall Motion Wall Motion Stress No regional wall motion Mid-Anterior : Mildly abnormalities noted. hypokinetic. EKG Data Normal intervals are noted. The patient exercised according to the regular Margarito protocol for a total duration of 8:00. The maximum heart rate attained was 160 beats per minute. This was 107% of maximum predicted heart rate. The patient exercised into stage 3 of the Margarito protocol. The stress ECG displays diffuse abnormal ST segments. No clinical angina was noted. Interpretation Summary The estimated ejection fraction is 60 %. Abnormal, adequate, treadmill echocardiogram. Positive for ischemia by EKG and echocardiographic criteria. No anginal symptoms noted. Rare PVCs and ventricular couplets noted during exercise. The patient developed [address] segment depression along the inferior lateral leads at peak exercise which normalized by about 59 seconds into recovery. In addition the patient appeared to have mid anterior hypokinesis seen in 3 views on echocardiography. Test was terminated did due to dyspnea. Final LVEF around 65%. Ordering Physician: Ayo East Referring Physician: Ayo East Performed By: Heath Richmond RCS 03/02/18 3212 Date Ayo East MD CC: No Primary Care Physician; Ayo East MD Date Dictated: 03/02/18 1314 Date Transcribed: 03/02/18 858 Repack Room Worker: Signed LIVER PROFILE Collected: 03/02/2018 Status: F Source: JAMAL 12:11 PM [facility] REPOSITORY TYPE CODE TESTS RESULT OUT OF RANGE REFERENCE UNITS LAB L501.1500 6.4-8.2 g/dL Normal T PROT 7.2 LAB L501.1800 3.2-5.0 g/dL Normal ALB 3.5 LAB L501.1950 2.2-4.2 g/dL Normal GLOB 3.7 LAB L501.4100 15-37 U/L Normal AST 22 LAB L501.4305 45-117 U/L Normal ALK P 65 LAB L501.4405 13-56 U/L Normal ALT 27 LAB L501.4600 0.20-1.00 mg/dL Normal T BILI 0.70 LAB L501.4700 0.00-0.30 mg/dL Normal D BILI 0.18 Performed By: #### L500.3400, L500.4100, L501.9520 #### [facility] [address] [place], [address] LIPID PROFILE Collected: 03/02/2018 Status: F Source: [place] 12:11 PM [facility] REPOSITORY TYPE CODE TESTS RESULT OUT OF RANGE REFERENCE UNITS LAB L501.4900 200 mg/dL Normal CHOL 185 Result Comment: <200 mg/dL Desirable 200-240 mg/dL Borderline >240 mg/dL High Risk LAB L501.5000 mg/dL Normal TRIG 100 Result Comment: The drugs N-Acetylcysteine and Metamizole may falsely depress this assay. Serum Triglycerides Reference Interval Normal <150 mg/dL Borderline high 150 - 199 mg/dL High 200 - 499 mg/dL Very High > or = 500 mg/dL LAB L501.6400 mg/dL Normal HDL 55 Result Comment: The drugs N-Acetylcysteine and Metamizole may falsely depress this assay. Reference Range HDL <40 mg/dL Low HDL Cholesterol HDL >or= 60 mg/dL High HDL Cholesterol LAB L501.6500 0-130 mg/dL Normal LDL 110 LAB L501.6600 5-40 mg/dL Normal VLDL 20 Performed By: #### L500.3400, L500.4100, L501.9520 #### [facility] [address] [place], [address] THYROID STIM HORMONE Collected: 03/02/2018 Status: F Source: [place] (TSH) 12:11 PM [facility] REPOSITORY TYPE CODE TESTS RESULT OUT OF RANGE REFERENCE UNITS LAB L501.9520 0.358-3.74 uIU/mL Normal TSH 1.19 Performed By: #### L500.3400, L500.4100, L501.9520 #### [facility] [address] [place], [address] ECHOCARDIOGRAM COMPLETE Observed: 03/02/2018 Status: F Source: [place] 11:00 AM [facility] REPOSITORY [facility] Cardiovascular Services [address] [place] [address] Echo Complete 03/01/18 1252 MR#: [id number] Acct: [id number] Name: JIM MAN Rep #: [id number] : 1945 72 From: Ayo East MD Attending Dr: Ayo East MD Status: REG CLI Ordering Dr: Ayo East MD Date: 03/01/18 Location: [facility] Sex: F C Admitted: Reason For Study: dyspnea/SOB Procedure This was a 2D Doppler, Color Flow transthoracic echocardiogram. Exam performed in department. Left Ventricle Normal size and thickness. The estimated ejection fraction is 65 %. Normal diastology for age. No regional wall motion abnormalities noted. Right Ventricle Normal size and thickness. Normal systolic function. Atria Normal left atrium. Normal right atrium. Normal atrial septum. Mitral Valve The mitral valve is structurally normal. No prolapse or stenosis seen. Mild (1+) posteriorly directed mitral valve insufficiency. Tricuspid Valve Normal tricuspid valve. Mild (1+) tricuspid valve insufficiency. Right ventricular systolic pressure estimated to be 29 mmHg. Aortic Valve Trisinus/trileaflet aortic valve. Mild diffuse aortic valve thickening. There is no aortic stenosis. Pulmonic Valve Normal pulmonic valve. Great Vessels Normal aortic root. Normal arch. Normal inferior vena cava. Inferior vena cava collapse with sniff. Pericardium/Pleural No pericardial effusion. MMode/2D Measurements AND Calculations LVIDd: 4.6 cm IVSd: 0.94 cm Ao root diam: 2.7 cm LVIDs: 2.9 cm LVPWd: 0.95 cm LA dimension: 3.5 cm RVDd: 2.3 cm FS: 37.8 % LAV(MOD-bp): 49.1 ml LA A4 area: 16.8 cm2 RA A4 area: 13.9 cm2 LAV(MOD-bp) Indexed: 32.1 ml/m2 LAV(MOD-sp2): 44.2 ml LAV(MOD-sp4): 48.9 ml Doppler Measurements AND Calculations Lat Peak E' Thierry: 10.5 cm/sec Med Peak E' Thierry: 8.7 cm/sec MV V2 max: 119.6 cm/sec MV max P.7 mmHg MV V2 mean: 60.0 cm/sec MV mean P.7 mmHg MV V2 VTI: 32.9 cm Ao V2 max: 142.0 cm/sec LV V1 max: 91.0 cm/sec PA V2 max: 82.6 cm/sec Ao max P.7 mmHg LV V1 max P.3 mmHg TR max thierry: 253.1 cm/sec TR max P.7 mmHg Interpretation Summary The estimated ejection fraction is 65 %. Normal diastology for age. Mild (1+) posteriorly directed mitral valve insufficiency. Mild (1+) tricuspid valve insufficiency. Right ventricular systolic pressure estimated to be 29 mmHg. There is no comparison study available. Ordering Physician: Ayo East Referring Physician: NO PCP Performed By: Cristina Adam RDCS, RVT 03/02/18 1059 Date Ayo East MD CC: No Primary Care Physician; Ayo East MD Date Dictated: 03/01/18 1252 Date Transcribed: 03/02/18 105 Repack Room Worker: Signed CARDIOLOGY VISIT Observed: 02/16/2018 Status: F Source: [place] REPORT 11:36 AM [facility] REPOSITORY [facility] [place] 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 Patient used to see Dr. 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 Currently she requires a elective hysterectomy and is here for cardiac risk stratification. On further history she had an echocardiogram dated 11/12/12 which demonstrated normal LV size and function with an EF around 55%. She is on no antihypertensive or anticoagulation therapy. She denies any chest pain, angina, but does complain of progressively worsening dyspnea on exertion and shortness of breath. She is keenly aware when she goes in and out of atrial fibrillation, her last one being about 2 weeks ago after aggressive work in her yard, when it was hot, and she was mowing the grass. This lasted about an hour and a half and then it resolved. She claims she gets about 8-10 episodes of atrial fibrillation per year, all with exertion and never at rest. When she does go in atrial fibrillation she usually just takes a nap and it resolves. In addition the patient requires RESEARCH SPECIALIST surgery for uterine prolapse in the upcoming weeks. She is here for cardiac risk stratification per In our office today her blood pressure is 130/60, pulse is 68 and regular. Physical exam demonstrates clear lungs bilaterally, regular rate and rhythm, normal S1/S2, no S3 or S4. EKG today demonstrates normal sinus rhythm, normal axis, normal intervals, no evidence of previous myocardial infarction. Intake Vital Signs02/16/18 Height 4 ft 11 in 02/16/18 Weight: 127 lb 02/16/18 Body Mass Index (BMI) 25.6 02/16/18 Blood Pressure 130/60 Intake Visit Reasons: AFIB, MURMUR (SELF) Monorail Helper Required: No Accompanied by: Significant Other Is patient in pain?: No Allergies Sulfa (Sulfonamide Antibiotics) Allergy (Unknown, Verified 02/16/18 11:12) unknown Medications aspirin 81 mg tablet,delayed release 81 mg PO DAILY 02/12/18 [History Confirmed 02/16/18] folic acid 1 mg tablet 1 mg PO DAILY 02/12/18 [History Confirmed 02/16/18] methotrexate sodium 2.5 mg tablet 15 mg PO QWEEK tab 02/12/18 [History Confirmed 02/16/18] estradiol 0.01% (0.1 mg/gram) vaginal cream 1 g VAGINAL DAILY 02/16/18 [History Confirmed 02/16/18] metoprolol tartrate 25 mg tablet 25 mg PO BID #60 tab 02/16/18 [Rx Confirmed 02/16/18] prednisone 5 mg tablet 5 mg PO DAILY PRN 02/16/18 [History Confirmed 02/16/18] rosuvastatin 20 mg tablet 20 mg PO .COMPLEX 02/16/18 [History Confirmed 02/16/18] FORMERLY [facility], 1928–1983 Medical History Rheumatoid arthritis (Chronic) Hyperlipidemia (Chronic) Atrial fibrillation (Chronic) Meniere disease (Chronic) Surgical History History of carpal tunnel release of both wrists (Chronic 2013) Family History Father CAD (coronary artery disease) Mother Cancer Social History Smoking Status: Never smoker 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 Const Const: Negative for fatigue, weakness, body ache, fever(s), headache(s), chills, frequent falls, night sweats, daytime sleepiness, difficulty sleeping, excessive sweating, weight gain, weight loss, increased appetite, poor appetite, anorexia or other Eyes Eyes: Negative for blind spots, loss of peripheral vision, transient loss of vision, blurry vision, change in vision, double vision, floaters, tunnel vision or other ENT ENT: Negative for headache(s), dizziness, hearing loss, tinnitus, Nosebleed/epistaxis, balance problems, post nasal drip, lip swelling, tongue swelling, bleeding gums, hoarseness, neck pain, dry mouth or other Cardio Chest Pain: No Palpitations: No Edema: None Muscle aches with walking: None Resp Respiratory: Positive for SOB with activity; negative for SOB at rest, SOB orthopnea\SOB lying down, Coughing up blood/hemoptysis, chest congestion, pain on inspiration, snoring, stridor, wheezing, crackles, paroxysmal nocturnal dyspnea or other GI GI: Negative nausea, vomiting, heartburn, constipation, belching, bloating, cramping, vomiting blood/hematemesis, bright, red blood in stools, black,tarry stools, loose stools, Difficulty Swallowing or other : Negative for hematuria, frequent nighttime urination/ nocturia, erectile dysfunction or abnormal vaginal bleeding Musc Musc: Negative for balance problems, muscle aches/ myalgia, muscle weakness or joint pain Skin Skin: Negative redness, non-healing lesions, rash, unusual bruising, skin ulcer, wounds, jaundice or other Neuro Neuro: Negative for weakness, headache(s), frequent falls, blurry vision, double vision, dizziness, lightheadedness, near syncope, syncope, orthostatic symptoms, confusion, memory loss, restless legs, vertigo, seizures, lack of coordination or other Arslan Hematologic/Lymphatic: Negative for easy bleeding, easy bruising, enlarged lymph nodes or other Endo Endo: Negative for fatigue, excessive sweating, cold intolerance, heat intolerance, flushing, increased thirst/drinking, increased hunger, hair loss, hair growth or other Psych Psych: Negative for anxiety, depression, thoughts of harming anyone, thoughts of harming yourself, visual hallucinations, panic attacks or audible hallucinations Allergy Allergy/Immunology: Negative for lip swelling, Negative for tongue swelling, Negative for rash, Negative for throat swelling, Negative for hives Cardiology Exam Const Appearance: cooperative, healthy appearing and no acute distress Nutritional Appearance: well nourished Orientation: alert, oriented x3 and oriented to person Head Head: normal to inspection, atraumatic and normocephalic Nose: external nose normal Face and Sinus: face symmetric Mouth: oral mucosae normal Eyes General: appearance normal, both eyes and all related structures Eyelids: eyelids normal Conjunctivae: conjunctivae normal Pupils: PERRL and normal by confrontation EOM: EOM intact bilaterally Neck Neck: normal visual inspection and full ROM Carotids: normal carotid upstroke Chest Chest inspection: normal inspection of the chest Auscultation: Bilateral: Clear to Auscultation Cardio Palpation: normal PMI Rate: regular rate Rhythm: regular rhythm Heart sounds: S1 normal and S2 normal GI GI: normal to inspection, no hepatosplenomegaly and bowel sounds present Neuro General: alert, oriented x3, awake, CN's II-XI intact bilaterally and moves all extremities Skin Skin: no rashes or lesions noted Extremities Pulses: Normal: Right Femoral Pulse, Left Femoral Pulse, Right Dorsalis Pedis Pulse, Left Dorsalis Pedis Pulse, Right Posterior Tibial Pulse, Left Posterior Tibial Pulse, Right Radial Pulse, Left Radial Pulse Lower Extremity Edema: None: Bilateral Psych Psychological: normal affect Assessment AND Plan 1. Atrial fibrillation I48.91 Plan 1. Paroxysmal atrial fibrillation: The patient states that she has paroxysmal atrial fibrillation about 10 times per year, all of which are with exertion, and are noted by the patient. She denies any palp shins when she is at rest. Because of the frequency of her paroxysmal atrial fibrillation I recommend that she undergo a 2D echo with Doppler as well as a treadmill echocardiogram, as well as to assess for cardiac preoperative risk stratification. If either 1 of these are grossly abnormal, she may require diagnostic coronary angiogram. If her stress test is negative for inducible ischemia, she will be deemed at low risk for noncardiac surgery. As the patient's frequency of her atrial fibrillation continues to worsen over the years, I recommend that she be started on Lopressor 25 mg p.o. twice daily. She has never had a stroke or TIA, is a nondiabetic, and is normotensive. We will hold off on anticoagulation at this time in light of the fact that she requires immunosuppressive therapy particular prednisone, and has an upcoming hysterectomy surgery. In addition we will check her TSH to determine if she has any hyperthyroid issues that may be contributing to her paroxysmal atrial fibrillation. Orders Orders: 2. Hyperlipidemia E78.5 Plan 2. Hyperlipidemia: Recommend obtaining fasting lipid profile, and adjusting her Crestor as needed. She currently takes 20 mg of Crestor every other day as they are too difficult to break apart. 3. Return office in 6 months. This note was generated using a voice recognition system and there may be incorrect words, spelling or punctuation that were not noted when reviewing the office note prior to saving. Orders Orders: Plan Detail Other Orders Orders: Other Medications New: Discontinued: Follow Up +6M ([place]) Coding Level of Care Code Off vis,new,level 4 Diagnoses Atrial fibrillation I48.91 Hyperlipidemia E78.5 Coding Level of Care Code Off vis,new,level 4 Diagnoses Atrial fibrillation I48.91 Hyperlipidemia E78.5 02/16/18 1136 <Electronically signed by Ayo East MD> Date Ayo East MD Cosign Signature: Date (if applicable) CC: 12 LEAD EKG PERFORMED Observed: 02/16/2018 Status: F Source: JAMAL BY FLORIAN 11:01 AM [facility] REPOSITORY [facility] [address] [place] [address] 12 Lead EKG performed by FLORIAN 02/16/18 1100 MR#: [id number] Acct: [id number] Name: JIM MAN Margot Rep #: [id number] : 1945 72 From: Ayo East MD Attending Dr: Ayo East MD Status: DEP AMB Ordering Dr: Ayo East MD Date: 02/16/18 Location: [facility] [place] Sex: F C Admitted: BMS/12 Lead EKG performed by [facility] ECG Report Interpretation Sinus Rhythm -RSR(V1) -nondiagnostic. Low voltage -possible pulmonary disease. ABNORMAL Electronically signed on 05/28/2018 at 15:30 by Ayo East Software Version [id number] 05/28/18 1536 Date Ayo East MD CC: No Primary Care Physician Date Dictated: 02/16/18 1100 Date Transcribed: 02/16/18 1100 Repack Room Worker: Signed ALLERGIES ALLERGIES DATE TYPE / CODE NAME / CODE REACTION SEVERITY SOURCE 06/28/2018 [facility] (S[facility]onamide [facility] 74363(SNOMED Antibiotics)/ Repository CT) [id number](RX NORM) ENCOUNTERS ENCOUNTERS ADMIT/DISCHARGE ACCOUNT ADMITTING ENCOUNTER LOCATION SOURCE NUMBER CLASS 06/28/2018/ [id number] Ambulatory BMSBuilding:B [facility] 9 1 [facility] Repository 06/25/2018 [id number] Ambulatory BMSBuilding:B [facility] 2 MS.[facility] Repository 06/25/2018 [id number] Ambulatory [facility] 3 [facility] ing:[facility] Repository 06/24/2018 [id number] Ambulatory Jamal [facility] 4 [facility] ing:MTLAB Repository 06/23/2018 [id number] Ambulatory Jam[facility] 7 [facility] ing:CR Repository 06/17/2018 [id number] Ambulatory Jamal [facility] 9 [facility] ing:[facility] Repository 06/14/2018/ [id number] Ambulatory Jamal [facility] 8 6 [facility] ing:CR Repository 05/27/2018 [id number] Ambulatory BMSBuilding:W [facility] 5 [facility] Repository 05/27/2018 [id number] Ambulatory [facility] 6 [facility] Repository 05/19/2018 [id number] Ambulatory BMSBuilding:W [place] 2 [facility] Repository 05/14/2018/ [id number] Ambulatory Jamal [facility] 8 9 [facility] ing:CR Repository 05/03/2018 [id number] Ambulatory [place] [facility] 7 [facility] ing:LAB Repository 04/30/2018/ [id number] Ambulatory BMSBuilding:B [facility] 8 7 [facility] Repository 04/21/2018 [id number] Ambulatory [facility] [facility] 1 [facility] ing:LAB Repository 04/19/2018/ [id number] Ambulatory BMSBuilding:B [place] 8 4 [facility] Repository 04/14/2018/ [id number] Ambulatory Jamal [facility] 8 1 [facility] ing[facility]CR Repository 03/30/2018 [id number] Ambulatory Jamal [facility] 2 [facility] ing:SDC Repository 03/26/2018 [id number] Ambulatory Jamal Jamal 8 [facility] ing:CR Repository 03/23/2018 [id number] Ambulatory [place] Jamal 3 [facility] Hospital ing:HPRAD Repository 03/23/2018/ [id number] Ambulatory BMSBuilding:B [place] 8 2 [facility] Repository 03/19/2018 [id number] Ambulatory Jamal Jamal 5 [facility] ing:LAB Repository 03/19/2018/ [id number] Ambulatory BMSBuilding:B Jamal 8 1 [facility] Repository 03/06/2018 [id number] Ambulatory BMSBuilding:B Jamal 4 MS.CF.[facility] Repository 03/05/2018/ [id number] East, Ambulatory Jamal [facility] 8 4 [facility] ing:ICURoom: Repository [id number]: 1 03/05/2018 [id number] Ambulatory BMSBuilding:W [place] 8 [facility] Repository 03/03/2018/ [id number] Ambulatory BMSBuilding:B Jamal 8 4 [facility] Repository 03/02/2018 [id number] Ambulatory [facility] Jamal 5 [facility] ing:[facility] Repository 03/02/2018 [id number] Ambulatory BMSBuilding:W Jam[facility] 5 [facility] Repository 03/01/2018 [id number] Ambulatory [facility] [facility] 3 [facility] ing:[facility] Repository 03/01/2018 [id number] Ambulatory BMSBuilding:W [facility] 1 [facility] Repository 02/16/2018/ [id number] Ambulatory BMSBuilding:B Jamal 8 1 MS.[facility] Repository PAYERS PAYERS ENCOUNTER GUARANTOR PAYER SUBSCRIBER SOURCE 06/28/2018 JIM J Primary JIM J [facility] [id number] SR [facility] [address], PART A [facility] [id number] [id number]: Number: Repository [id number] (HP) Date:2018-06-28 06/28/2018 Secondary JIM J Jamal Insurance:[facility] JOSE: [facility] Number: [id number] Hospital [id number] Repository Date:9302-06-79[address], [place] [address]YD: 06/28/2018 Tertiary NOT GIVENUNK [facility] Insurance:SELF PAY [facility] Number: Effective Repository Date:2018-06-28 06/25/2018 JIM J Primary JIM J Jamal [id number] SR Insurance:[facility] [address], PART A [facility] [id number] [address]Cif: Number: Repository [id number] (HP) Date:2018-04-30 06/25/2018 Secondary JIM J Jamal Insurance:[facility] JOSE: [facility] Number: [id number] Hospital [id number] Repository Date:[id number] [facility] [place], [place] [address]ZM: 06/25/2018 Tertiary NOT GIVENUNK Jamal Insurance:SELF PAY [facility] Number: Effective Repository Date:2018-06-25 06/25/2018 JIM J Primary JIM J Jamal [id number] SR Insurance:MEDICARE KIRCHNERB: [address] A [facility] [id number] [address]Ryu: Number: Repository [id number] (HP) Date:2018-04-30 06/25/2018 Secondary JIM J Rawlings Insurance:AARPPolicy ROSALIACHJULIDOB: [facility] Number: [id number] Hospital [id number] Repository Date:9314-10-67QI [address]GCEMJAA, [place] [address]UI: 06/25/2018 Tertiary NOT GIVENUNK Jamal Insurance:SELF PAY [facility] Number: Effective Repository Date:2018-04-30 06/24/2018 JIM J Primary JIM J Rawlings [id number] SR Insurance:MEDICARE KIRCHNERDOB: [address] A [facility] [id number] McKinley [facility] Health Care Services [address]Mvs: Number: Repository [id number] (HP) Date:2018-06-24 06/24/2018 Secondary JIM J Rawlings Insurance:AARPPolicy ROSALIACHJULIDOB: Community Number: [id number] Hospital [id number] Repository Date:1680-60-75GR [address]RT[place]VT, [place] [address]VA: 06/24/2018 Tertiary NOT GIVENUNK Rawlings Insurance:SELF PAY [facility] Number: Effective Repository Date:2018-06-24 06/23/2018 JIM J Primary JIM J Jamal [id number] SR Insurance:MEDICARE KIRCHNERDOB: [address] PART A [facility] [id number] McKinley [facility] Care Services [address]Agq: Number: Repository [id number] (HP) Date:2018-03-26 06/23/2018 Secondary JIM J Jamal Insurance:Bee GARCIAB: [facility] Number: [id number] Hospital [id number] Repository Date:6398-02-20WR [address]QJDNZKO, [place] [address]CZ: 06/23/2018 Tertiary NOT GIVENUNK Rawlings Insurance:SELF PAY [facility] Number: Effective Repository Date:2018-06-15 06/17/2018 JIM J Primary NOT GIVENUNK Rawlings [id number] SR Insurance:SELF PAY [address] [address]Mhi: Number: Effective Repository Date:2018-06-09 (HP) 06/14/2018 JIM J Primary JIM J Jamal [id number] SR Insurance:MEDICARE KIRCHNERDOB: [address], PART A [facility] [id number] McKinley [facility] Care Services [address]Mss: Number: Repository [id number] (HP) Date:2018-03-26 06/14/2018 Secondary JIM J Rawlings [facility] GARCIAB: Community Number: [id number] Hospital [id number] Repository Date:7129-72-40YI [address]YRUTPMK, [place] [address]CM: 06/14/2018 Tertiary NOT GIVENUNK Jamal Insurance:SELF PAY [facility] Number: Effective Repository Date:2018-05-15 05/27/2018 JIM J Primary JIM J Rawlings [id number] SR Insurance:MEDICARE KIRCHNERDOB: [address], PART A [facility] [id number] McKinley [facility] Health Care Services [address]Haf: Number: Repository [id number] (HP) Date:2018-05-19 05/27/2018 Secondary JIM J Rawlings Insurance:AARPPolicy KIRCHNERDOB: Community Number: [id number] Hospital [id number] Repository Date:0775-24-44KR [address]WSXYZYX, [place] [address]LV: 05/27/2018 Tertiary NOT GIVENUNK Rawlings Insurance:SELF PAY [facility] Number: Effective Repository Date:2018-05-27 05/27/2018 JIM J Primary JIM J Rawlings [id number] SR Insurance:MEDICARE KIRCHNERDOB: [address], PART A [facility] [id number] McKinley [facility] Care [facility] [address]Tft: Number: Repository [id number] () Date:2018-05-19 05/27/2018 Secondary JIM J Jamal Insurance:AARPPolicy ROSALIACHNERDOB: Community Number: [id number] Hospital [id number] Repository Date:0394-01-79NJ [address]BRAA, [place] [address]FS: 05/27/2018 Tertiary NOT GIVENUNK Rawlings Insurance:SELF PAY [facility] Number: Effective Repository Date:2018-05-19 05/19/2018 JIM J Primary JIM J Jamal [id number] SR Insurance:MEDICARE KIRCHNERDOB: [address], PART A [facility] [id number] McKinley [facility] Health Care Services [address]Nlw: Number: Repository [id number] () Date:2018-03-26 05/19/2018 Secondary JIM J Jamal Insurance:AARPPolicy KIRCHNERDOB: Community Number: [id number] Hospital [id number] Repository Date:8794-33-88NH [address]LEKDYYI, [place] [address]NV: 05/19/2018 Tertiary NOT GIVENUNK Jamal Insurance:SELF PAY [facility] Number: Effective Repository Date:2018-05-19 05/14/2018 JIM J Primary JIM J Rawlings [id number] SR Insurance:MEDICARE [facility]COP[facility]ITALD[facility]: [address], PART A [facility] [id number] McKinley Christian Health Care Services [address]Xet: Number: Repository [id number] (HP) Date:2018-03-26 05/14/2018 Secondary JIM J Rawlings Insurance:[facility]PP[facility]ery ROSALIACHNERDOB: Community Number: [id number] Hospital [id number] Repository Date:7785-77-97AH [address]PCZSZZU, [place] [address]FZ: 05/14/2018 Tertiary NOT GIVENUNK Rawlings Insurance:SELF PAY [facility] Number: Effective Repository Date:2018-04-15 05/03/2018 JIM J Primary JIM J Rawlings [id number] SR Insurance:MEDICARE KIRCHNERDOB: [address] PART A [facility] [id number] McKinley [facility] Health Care Services [address]Gkx: Number: Repository [id number] (HP) Date:2018-05-03 05/03/2018 Secondary JIM J Rawlings Insurance:AARPPolicy ROSALIACHNERDOB: Community Number: [id number] Hospital [id number] Repository Date:9287-33-12VP [address]UBDWIIK, [place] [address]KS: 05/03/2018 Tertiary NOT GIVENUNK Rawlings Insurance:SELF PAY [facility] Number: Effective Repository Date:2018-05-03 04/30/2018 JIM J Primary JIM J Jamal [id number] SR Insurance:MEDICARE KIRCHCOPPER SPRINGS HOSPITALDOB: [address], PART A [facility] [id number] McKinley [facility] Care Services [address]Waa: Number: Repository [id number] (HP) Date:2018-03-19 04/30/2018 Secondary JIM J Rawlings Insurance:AARPPolicy KIRCHNERDOB: Community Number: [id number] Hospital [id number] Repository Date:7653-93-06HL [address]PTCTIIK, [place] [address]BJ: 04/30/2018 Tertiary NOT GIVENUNK Rawlings Insurance:SELF PAY [facility] Number: Effective Repository Date:2018-04-30 04/21/2018 JIM J Primary JIM J Rawlings [id number] SR Insurance:MEDICARE KIRCHNERDOB: [address] A [facility] [id number] McKinley [facility] Health Care Services [address]Pgl: Number: Repository [id number] (HP) Date:2018-04-21 04/21/2018 Secondary JIM J Jamal Insurance:AARPPolicy KIRCHNERDOB: Community Number: [id number] Hospital [id number] Repository Date:5987-61-31GN [address]XGVNDHD, [place] [address]LH: 04/21/2018 Tertiary NOT GIVENUNK Jamal Insurance:SELF PAY [facility] Number: Effective Repository Date:2018-04-21 04/19/2018 JIM J Primary JIM J Rawlings [id number] SR Insurance:MEDICARE KIRCHNERDOB: [address] PART A [facility] [id number] McKinley [facility] Health Care Services [address]Cqz: Number: Repository [id number] (HP) Date:2018-04-19 04/19/2018 Secondary JIM J Jamal Insurance:AARPPolicy KIRCHNERDOB: Community Number: [id number] Hospital [id number] Repository Date:9325-66-05HW [address]DDKOSEF, [place] [address]JG: 04/19/2018 Tertiary NOT GIVENUNK Jamal Insurance:SELF PAY [facility] Number: Effective Repository Date:2018-04-19 04/14/2018 JIM J Primary JIM J Rawlings [id number] SR Insurance:MEDICARE KIRCHNERDOB: [address], PART A [facility] [id number] McKinley Christian Health Care Services [address]Zuu: Number: Repository [id number] (HP) Date:2018-03-26 04/14/2018 Secondary JIM J Jamal Insurance:AARPPolicy ROSALIACHNERDOB: Community Number: [id number] Hospital [id number] Repository Date:2067-88-99UQ [address]JKJMITI, [place] [address]EQ: 04/14/2018 Tertiary NOT GIVENUNK Jamal Insurance:SELF PAY [facility] Number: Effective Repository Date:2018-03-26 03/30/2018 JIM J Primary JIM J Rawlings [id number] SR Insurance:MEDICARE KIRCHNERDOB: [address] A [facility] [id number] McKinley [facility] [address]Xlz: Number: Repository [id number] (HP) Date:2018-02-09 03/30/2018 Secondary JIM J Rawlings Insurance:AARPPolicy ROSALIACHNERDOB: Community Number: [id number] Hospital [id number] Repository Date:2911-29-34AJ [address]PJWNVQM, [place] [address]YO: 03/30/2018 Tertiary NOT GIVENUNK Jamal Insurance:SELF PAY [facility] Number: Effective Repository Date:2018-02-09 03/26/2018 JIM J Primary JIM J Rawlings [id number] SR Insurance:MEDICARE KIRCHNERDOB: [address] PART A [facility] [id number] McKinley [facility] [address]Omg: Number: Repository [id number] (HP) Date:2018-03-19 03/26/2018 Secondary JIM J Jamal Insurance:AARPPolicy ROSALIACHNERDOB: Community Number: [id number] Hospital [id number] Repository Date:0375-07-33LV [address]JJOPGVY, [place] [address]OC: 03/26/2018 Tertiary NOT GIVENUNK Jamal Insurance:SELF PAY [facility] Number: Effective Repository Date:2018-03-19 03/23/2018 JIM J Primary JIM J Rawlings [id number] SR Insurance:MEDICARE KIRCHNERDOB: [address], PART A [facility] [id number] McKinley [facility] Health Care [facility] [address]Fzj: Number: Repository [id number] (HP) Date:2018-03-23 03/23/2018 Secondary JIM J Rawlings Insurance:AARPPolicy ROSALIACHJULIDOB: [facility] Number: [id number] Hospital [id number] Repository Date:8105-31-87CB [address]ASHHEWW, [place] [address]QL: 03/23/2018 Tertiary NOT GIVENUNK Rawlings Insurance:SELF PAY [facility] Number: Effective Repository Date:2018-03-23 03/23/2018 JIM J Primary JIM J Jamal [id number] SR Insurance:MEDICARE KIRCHNERDOB: [address], PART A [facility] [id number] McKinley [facility] [address]Rqe: Number: Repository [id number] (HP) Date:2018-03-23 03/23/2018 Secondary JIM J Rawlings Insurance:AARPPolicy DONOVANDOB: Community Number: [id number] Hospital [id number] Repository Date:0093-91-18GA [address]TKBPWNC, [place] [address]JR: 03/23/2018 Tertiary NOT GIVENUNK Jamal Insurance:SELF PAY [facility] Number: Effective Repository Date:2018-03-23 03/19/2018 JIM J Primary JIM J Rawlings [id number] SR Insurance:MEDICARE KIRCHNERDOB: [address], PART A [facility] [id number] McKinley [facility] [address]Mwc: Number: Repository [id number] (HP) Date:2018-03-19 03/19/2018 Secondary JIM J Rawlings Insurance:BELLAPPolicstanley GARCIAB: Community Number: [id number] Hospital [id number] Repository Date:0488-79-25ZT [address]IUMQKRG, [place] [address]HF: 03/19/2018 Tertiary NOT GIVENUNK Rawlings Insurance:SELF PAY [facility] Number: Effective Repository Date:2018-03-19 03/19/2018 JIM J Primary JIM J Rawlings [id number] SR Insurance:MEDICARE KIRCHNERDOB: [address], PART A [facility] [id number] McKinley [facility] [address]Eiw: Number: Repository [id number] (HP) Date:2018-03-05 03/19/2018 Secondary JIM J Jamal Insurance:BELLAPPolicy DONOVANDOB: Community Number: [id number] Hospital [id number] Repository Date:6170-92-09BP [address]SOWTYSP, [place] [address]VJ: 03/19/2018 Tertiary NOT GIVENUNK Rawlings Insurance:SELF PAY [facility] Number: Effective Repository Date:2018-03-19 03/06/2018 JIM J Primary JIM J Jamal [id number] SR Insurance:MEDICARE KIRCHNERDOB: [address], PART A [facility] [id number] McKinley Christian Health Care Services [address]Lke: Number: Repository [id number] (HP) Date:2018-03-03 03/06/2018 Secondary JIM J Jamal Insurance:BELLAPPolicy DONOVANDOB: Community Number: [id number] Hospital [id number] Repository Date:5222-39-74LQ [address]JJAWLAF, [place] [address]HS: 03/06/2018 Tertiary NOT GIVENUNK Rawlings Insurance:SELF PAY [facility] Number: Effective Repository Date:2018-03-06 03/05/2018 JIM J Primary JIM J Jamal [id number] SR Insurance:MEDICARE KIRCHNERDOB: Community [address] [place] [address], PART A [facility] [id number] McKinley Christian Health Care Services [address]Uvs: Number: Repository [id number] (HP) Date:2018-03-03 03/05/2018 Secondary JIM J Jamal Insurance:AARPPolicy KIRCHNERDOB: Community Number: [id number] Hospital [id number] Repository Date:8659-56-84JU [address]KRPVTFI, [place] [address]NS: 03/05/2018 Tertiary NOT GIVENUNK Rawlings Insurance:SELF PAY [facility] Number: Effective Repository Date:2018-03-03 03/05/2018 JIM J Primary JIM J Rawlings [id number] SR Insurance:MEDICARE KIRCHNERDOB: [address] PART A [facility] [id number] McKinley Christian Health Care Services [address]Hkq: Number: Repository [id number] () Date:2018-03-03 03/05/2018 Secondary JIM J Rawlings Insurance:AARPPolicy KIRCHNERDOB: Community Number: [id number] Hospital [id number] Repository Date:9309-17-88YU [address]IXHZGCY, [place] [address]XC: 03/05/2018 Tertiary NOT GIVENUNK Rawlings Insurance:SELF PAY [facility] Number: Effective Repository Date:2018-03-05 03/03/2018 JIM J Primary JIM J Jamal [id number] [place] Insurance:MEDICARE KIRCHNERDOB: Community PART A [facility] [id number], Number: Repository [place] [address]Ghp: [id number] Date:2018-03-03 () 03/03/2018 Secondary JIM J Jamal Insurance:Bee GARCIAB: Community Number: [id number] Hospital [id number] Repository Date:8055-62-98AM [facility] [address]990[address], [place] [address]YN: 03/03/2018 Tertiary NOT GIVENUNK Jamal Insurance:SELF PAY [facility] Number: Effective Repository Date:2018-03-03 03/02/2018 JIM J Primary JIM J Rawlings [id number] [place] Insurance:[facility]ICARE [facility] PART A [facility] [id number], Number: Repository [place] [address]Fah: [id number] Date:2018-02-16 () 03/02/2018 Secondary JIM J Jamal Insurance:[facility]wood[facility] centerstan[facility] GARCIAB: Community Number: [id number] Hospital [id number] Repository Date:0099-65-15ZK [address]LRXVFNX, [place] [address]TU: 03/02/2018 Tertiary NOT GIVENUNK Jamal Insurance:SELF PAY [facility] Number: Effective Repository Date:2018-02-16 03/02/2018 JIM J Primary JIM J Rawlings [id number] Insurance:MEDICARE KIRCHNERDOB: [address], PART A [facility] [id number] McKin[facility] [address]Vrw: Number: Repository [id number] () Date:2018-02-16 03/02/2018 Secondary JIM J Jamal Insurance:[facility]ITALJOVANAwoodhull [facility] centery JOSEB: Community Number: [id number] Hospital [id number] Repository Date:4314-54-90KV [facility] [address]407OOGJEGA, [place] [address]MP: 03/02/2018 Tertiary NOT GIVENUNK Rawlings Insurance:SELF PAY [facility] Number: Effective Repository Date:2018-03-02 03/01/2018 JIM J Primary JIM J Rawlings [id number] Insurance:MEDICARE KIRCHNERDOB: Community PART A [facility] [id number], Number: Repository [place] [address]Qvg: [id number] Date:2018-02-16 () 03/01/2018 Secondary JIM J Rawlings Insurance:AARPPolicy DONOVANDOB: Community Number: [id number] Hospital [id number] Repository Date:9682-92-96LK [address]KQKLWPW, [place] [address]MC: 03/01/2018 Tertiary NOT GIVENUNK Rawlings Insurance:SELF PAY [facility] Number: Effective Repository Date:2018-02-16 03/01/2018 JIM J Primary JIM J Rawlings [id number] Insurance:MEDICARE KIRCHNERDOB: [address], PART A [facility] [id number] [facility] [address]Qep: Number: Repository [id number] () Date:2018-02-09 03/01/2018 Secondary JIM J Jamal Insurance:AARPPolicy DONOVANDOB: Community Number: [id number] [place] [address] [id number] Repository Date:1858-90-50JJ [address]LENWCTY, [place] [address]BZ: 03/01/2018 Tertiary NOT GIVENUNK Jamal Insurance:SELF PAY [facility] Number: Effective Repository Date:2018-03-01 02/16/2018 JIM DONOVANP Primary JIM Jamal O [facility] [address], Insurance:MEDICARE KIRCHNERDOB: Community [place] [address]Uwr: PART A [id number] Number: Repository () [id number] Date:2018-02-08 02/16/2018 Secondary JIM Jamal Insurance:AARPPolicy KIRCHNERDOB: [facility] Number: [id number] Hospital [id number] Repository Date:5611-33-14ZN [address]URBZRAU, [place] [address]AK: 02/16/2018 Tertiary NOT GIVENSUDHIR Berry Insurance:SELF PAY [facility] Number: Effective Repository Date:2018-02-16
== END ==
PROVIDERS: Referring Provider Internal Medicine Cardiovascular Disease; Visit Provider Internal Medicine Cardiovascular Disease
DX: R07.9 Chest pain, unspecified (principal); R06.09 Other forms of dyspnea; I25.10 Atherosclerotic heart disease of native coronary artery without angina pectoris; Z95.5 Presence of coronary angioplasty implant and graft
CPT/HCPCS: 93017; 93350

== ENCOUNTER 2018-06-14 11:30 | Outpatient (RCR) | payer MEDICARE, OTHER, SELFPAY ==
[2018-03-05 11:27] VITALS: BMI 25.6
[2018-04-30 11:17] VITALS: BMI 26.0
--- NOTE | 2018-05-19 13:13 | EKG12_ITS ---
Test Reason : CP Blood Pressure : / mmHG Vent. Rate : 069 BPM Atrial Rate : 069 BPM P-R Int : 138 ms QRS Dur : 078 ms QT Int : 412 ms P-R-T Axes : 044 027 035 degrees QTc Int : 441 ms Normal sinus rhythm Normal ECG Confirmed by SHERRY PINEDA ([id number]), multimedia editor CHAS MERCEDES ([id number]) on 05/20/2018 3:28:15 PM Referred By: Sherry Pineda Confirmed By:SHERRY PINEDA
--- NOTE | 2018-06-11 10:46 | PCM.CR.ITP ---
Exercise - 90-Day Assessment - Visit Date of Eval: 06/11/18 Session #:: 31 - Stages of Change Stages of Change:: Action - Exercise Prescription Mode:: Treadmill, Airdyne, NuStep, Arm Ergometer Frequency (x/week): 3 Duration:: 30-45 MIN METs: 6.1 INCREASED FROM 5.0 Target Heart Rate:: 119-129 - Hypertension Resting Blood Pressure:: 108/64 Peak Exercise Blood Pressure:: 130/68 Medication Changes:: Yes - DC ATORVASTATIN - Intervention Home Exercise/Activity Goal:: Moderate Exercise 30 min/day x 5 days/wk - Education Goals:: Warm-up, RPE ALINE Scale, S/S, Safe Exercise, Self-Monitoring - Exercise Program Goals Exercise Program Goals: Aerobic Activity >30 min Nutrition - Initial Assessment - Program Goals Nutrition Program Goals: LDL <70. Total Cholesterol <200. HDL >45. Triglycerides <150. HgbA1C <7%. BMI <25 - Diabetes Do you monitor your blood sugar at home?: No Nutrition - 90-Day Assessment - Program Goals Nutrition Program Goals: LDL <70. Total Cholesterol <200. HDL >45. Triglycerides <150. HgbA1C <7%. BMI <25 - Visit Date of Eval: 06/11/18 - Stages of Change Stages of Change:: Action - Lipids Has the patient seen the dietitian?: No - Diabetes Diabetes:: No - Weight Management Weight:: 131 lb - GAIN 3# - Intervention Referral to dietitian:: No Will attend diet classes:: Yes - Education Attended class for:: Healthy eating Tobacco - Initial Assessment - Program Goals Tobacco Program Goals: Complete smoking cessation. Attend education classes. Improve Knowledge Test score - Learning Barriers Learning Barriers: Vision, Ready to Learn Tobacco - 90-Day Assessment - Program Goals Tobacco Program Goals: Complete smoking cessation. Attend education classes. Improve Knowledge Test score - Stage of Change Stages of Change:: Action - Learning Barriers Learning Barriers: Participates in education - Family Support Do you have family support?: Yes - Tobacco Use Tobacco Use: Non-smoker Do you use smokeless tobacco?: No - Intervention Smoking Cessation Referral:: No Education Schedule Given:: Yes - Education Attended class for:: Coronary artery disease, Risk factors, Sexuality, Medical compliance, Cardiac A&P, Angina signs & symptoms Psychosocial - Initial Assess - Target Goals Target Goals: Assess presence or absence of depression. Using a valid screening tool, maximizes coping skills. Positive support system - Psychosocial Test Tool Used:: HANDS Depression Questionnaire - Assistive Devices Fall Risk Assessed:: Yes Psychosocial - 90-Day Assess - Target Goals Target Goals: Assess presence or absence of depression. Using a valid screening tool, maximizes coping skills. Positive support system - Stages of Change Stages of Change:: Action - Psychosocial Test Tool Used:: HANDS Depression Questionnaire - Intervention PS - Interventions: Yes Attend Stress Management Classes, Yes Uses Stress Management Skills, No Referral to Mental Health, No Referral to [facility] Case Management, No Referral to Physician - Education Attended classes for:: Coping techniques, Signs & symptoms of depression, Stress management, Relaxation techniques - Patient/Program Goal Preventative Medication(s):: Aspirin, Clopidogrel, Beta luisa - Assistive Devices Assistive Devices:: None Fall Risk Assessed:: Yes Patient Health Questionnaire 90-Day Re-eval Assessment 1. Little interest or pleasure in doing things: Not at all 2. Feeling down, depressed, or hopeless: Not at all 3. Trouble falling or staying asleep, or sleeping too much: Not at all 4. Feeling tired or having little energy: Not at all 5. Poor appetite or overeating: Not at all 6. Feeling bad about yourself -- or that you are a failure or have let yourself or your family down: Not at all 7. Trouble concentrating on things, such as reading the newspaper or watching television: Not at all 8. Moving or speaking so slowly that other people could have noticed. Or the opposite - being so fidgety or restless that you have been moving around a lot more than usual: Not at all 9. Thoughts that you would be better off , or of hurting yourself in some way: Not at all Total Score: 0 Self-Efficacy 90-Day Re-eval Assessment We would like to know how confident you are in doing certain activities. Please select your confidence level for:: Select your confidence level for the following using the scale 1-10 where 1 is not at all confident and 10 is totally confident. Your score is the average of all 6 responses. Fatigue: How confident are you that you can keep the fatigue caused by your disease from interfering with the things you want to do? Select Number: 10 Physical Discomfort or Pain: How confident are you that you can keep the physical discomfort or pain of your disease from interfering with the things you want to do? Select Number: 10 Emotional Distress: How confident are you that you can keep the emotional distress caused by your disease from interfering with the things you want to do? Select Number: 10 Other Symptoms or Health Problems: How confident are you that you can keep other symptoms or health problems from interfering with the things you want to do? Select Number: 10 Different Tasks and Activities: How confident are you that you can do the different tasks and activities needed to manage your health condition so as to reduce your need to see a doctor? Select Number: 10 Medication: How confident are you that you can do things other than just taking medication to reduce how much your illness affects your everyday life? Select Number: 10 Total Score:: 10
[2018-06-11 10:49] VITALS: BP 108/64; BP 130/68
== END 2018-06-14 23:59 ==
LOC: CR 11:30
PROVIDERS: Referring Provider Internal Medicine Cardiovascular Disease; Visit Provider Internal Medicine Cardiovascular Disease
DX: I25.10 Atherosclerotic heart disease of native coronary artery without angina pectoris (principal); Z95.5 Presence of coronary angioplasty implant and graft; I48.91 Unspecified atrial fibrillation
CPT/HCPCS: 93005; 93798

== ENCOUNTER 2018-06-23 11:30 | Outpatient (RCR) | payer MEDICARE, OTHER, SELFPAY ==
[2018-03-05 11:27] VITALS: BMI 25.6
[2018-04-30 11:17] VITALS: BMI 26.0
[2018-06-15 01:08] VITALS: BP 108/64; BP 130/68
== END 2018-07-15 23:59 ==
LOC: CR 11:30
PROVIDERS: Referring Provider Internal Medicine Cardiovascular Disease; Visit Provider Internal Medicine Cardiovascular Disease
DX: I25.10 Atherosclerotic heart disease of native coronary artery without angina pectoris (principal); I48.91 Unspecified atrial fibrillation; Z95.5 Presence of coronary angioplasty implant and graft
CPT/HCPCS: 93798

== ENCOUNTER → 2018-06-24 12:37 | Outpatient (CLI) | payer MEDICARE, OTHER, SELFPAY ==
[2018-03-05 11:27] VITALS: BMI 25.6
[2018-04-30 11:17] VITALS: BMI 26.0
[2018-06-24 13:59] LABS: Absolute Lymphocyte Count 1.93 X10^3/ul (0.83-4.51); Absolute Neutrophil Count 4.5 X10^3/uL (2.0-7.7); Basophil# 0.06 X10^3/uL; Basophil% 0.8 % (0-1); Eosinophil# 0.12 X10^3/uL; Eosinophils% 1.7 % (0-5); Hematocrit 39.4 % (37-47); Lymphocyte # 1.93 X10^3/ul (4.0); Lymphocyte % 27.3 % (19-41); Mean Corpuscular Hgb 32.2 pg (27.0-32.0); Mean Corpuscular Volume 97.5 fL (81-99); Mean Platelet Vol. 9.7 fl (6.2-12.0); Monocyte# 0.47 X10^3/uL; Monocyte% 6.6 % (0-10); Neutrophil % 63.6 % (47-70); POSITIVE COUNT NO; POSITIVE DIFFERENTIAL NO; POSITIVE MORPHOLOGY NO; Platelet Count 312 K/mm3 (150-450); RBC Distribution Width CV 12.9 % (11.6-14.6); RBC Distribution Width SD 44.9 fl (35.1-43.9); Red Blood Count 4.04 M/mm3 (4.2-5.4); White Blood Count 7.1 K/mm3 (4.4-11.0)
[2018-06-24 14:10] LABS: BUN 20 mg/dL (7-18); Creatinine, Serum 0.67 mg/dL (0.55-1.02); EST Glomerular Filtration Rate 92 mL/min (>60); Est Glom Filt Rate - Afr Amer 112 mL/min (>60); Glucose 105 mg/dL (74-106); Protein, Total 7.7 g/dL (6.4-8.2)
[2018-06-24 14:11] LABS: ALB/GLOB Ratio 1.1 RATIO (0.9-2.4); AST(SGOT) 20 U/L (15-37); Alanine Aminotransfer ALT/SGPT 31 U/L (13-56); Alkaline Phosphatase 72 U/L (45-117); Anion Gap 8 (5-15); Calcium,Total 9.3 mg/dL (8.5-10.1); Chloride 106 mmol/L (98-107); Globulin 3.7 g/dL (2.2-4.2); Potassium 4.4 mmol/L (3.5-5.1); Sodium Level 140 mmol/L (136-145)
== END ==
PROVIDERS: Referring Provider Internal Medicine Rheumatology; Visit Provider Internal Medicine Rheumatology
DX: M06.09 Rheumatoid arthritis without rheumatoid factor, multiple sites (principal); M18.0 Bilateral primary osteoarthritis of first carpometacarpal joints; Z79.899 Other long term (current) drug therapy
CPT/HCPCS: 36415; 80053; 85025

== ENCOUNTER → 2018-06-25 09:50 | Outpatient (CLI) | payer MEDICARE, OTHER, SELFPAY ==
[2018-03-05 11:27] VITALS: BMI 25.6
[2018-04-30 11:17] VITALS: BMI 26.0
--- NOTE | 2018-06-25 09:52 | ECHOD_ITS ---
Reason For Study: CAD/ASHD Procedure This was a 2D Doppler, Color Flow transthoracic echocardiogram. Exam performed in department. Left Ventricle Normal size and thickness. The estimated ejection fraction is 65 %. Stage 2 diastolic dysfunction. No regional wall motion abnormalities noted. Right Ventricle Normal RV size. Normal systolic function. Atria Normal left atrium. Normal right atrium. Normal atrial septum. Mitral Valve The mitral valve is structurally normal. No prolapse or stenosis seen. Mild (1+) eccentric mitral valve insufficiency. Tricuspid Valve Normal tricuspid valve. Mild (1+) tricuspid valve insufficiency. Right ventricular systolic pressure estimated to be 31 mmHg. Aortic Valve Normal aortic valve. Trisinus/trileaflet aortic valve. Pulmonic Valve Normal pulmonic valve. Trivial pulmonic valve insufficiency. Great Vessels Normal aortic root. Normal arch. Normal inferior vena cava. Inferior vena cava collapse with sniff. Pericardium/Pleural No pericardial effusion. MMode/2D Measurements & Calculations LVIDd: 4.7 cm IVSd: 0.86 cm Ao root diam: 2.7 cm LVIDs: 2.9 cm LVPWd: 0.75 cm RVDd: 2.8 cm FS: 37.6 % LAV(MOD-bp): 45.9 ml LA A4 area: 15.9 cm2 LA dimension(2D): 3.4 cm LAV(MOD-bp) Indexed: 29.8 ml/m2 LAV(MOD-sp2): 44.4 ml LAV(MOD-sp4): 45.2 ml RA A4 area: 14.1 cm2 Doppler Measurements & Calculations MV E max thierry: 100.2 cm/sec Lat Peak E' Thierry: 8.9 cm/sec Med Peak E' Thierry: 7.9 cm/sec MV A max thierry: 79.0 cm/sec E/E' lat: 11.2 E/E' med: 12.7 MV E/A: 1.3 Ao V2 max: 141.8 cm/sec LV V1 max: 105.6 cm/sec MR max thierry: 530.0 cm/sec Ao max P.1 mmHg LV V1 max P.5 mmHg MR max P.3 mmHg PA V2 max: 91.3 cm/sec TR max thierry: 249.5 cm/sec PI dec slope: 160.8 cm/sec2 TR max P.7 mmHg Interpretation Summary The estimated ejection fraction is 65 %. Stage 2 diastolic dysfunction. Mild (1+) eccentric mitral valve insufficiency. Mild (1+) tricuspid valve insufficiency. Right ventricular systolic pressure estimated to be 31 mmHg. Compared to echo report dated 03/01/2018, no appreciable changes noted. Ordering Physician: Ayo Pineda Referring Physician: LIZETTE PCP Performed By: Jair, Cristina, RDCS, RVT
== END ==
PROVIDERS: Referring Provider Internal Medicine Cardiovascular Disease; Visit Provider Internal Medicine Cardiovascular Disease
DX: R07.9 Chest pain, unspecified (principal)
CPT/HCPCS: 93306

== ENCOUNTER → 2018-08-26 13:08 | Outpatient (CLI) | payer MEDICARE, OTHER, SELFPAY ==
[2018-03-05 11:27] VITALS: BMI 25.6
[2018-08-24 11:34] VITALS: BMI 25.0
[2018-08-26 14:15] LABS: AST(SGOT) 21 U/L (15-37); Alanine Aminotransfer ALT/SGPT 23 U/L (13-56); Albumin, Serum 3.9 g/dL (3.2-5.0); Alkaline Phosphatase 63 U/L (45-117); Bilirubin, Direct 0.15 mg/dL (0.00-0.30); Cholesterol 132 mg/dL (200); Globulin 3.3 g/dL (2.2-4.2); High Density Lipoprotein 56 mg/dL; Protein, Total 7.2 g/dL (6.4-8.2); Triglycerides 103 mg/dL; Very Low Density Lipoprotein 21 mg/dL (5-40)
== END ==
PROVIDERS: Nurse Practitioner Family; Referring Provider Internal Medicine Cardiovascular Disease; Visit Provider Internal Medicine Cardiovascular Disease
DX: I25.10 Atherosclerotic heart disease of native coronary artery without angina pectoris (principal); E78.5 Hyperlipidemia, unspecified; R07.9 Chest pain, unspecified
CPT/HCPCS: 80061; 80076

== ENCOUNTER → 2018-09-01 10:14 | Outpatient (CLI) | payer MEDICARE, OTHER, SELFPAY ==
[2018-03-05 11:27] VITALS: BMI 25.6
[2018-08-24 11:34] VITALS: BMI 25.0
--- NOTE | 2018-09-01 10:17 | STE_ITS ---
Reason For Study: PRE OP Stress Results Protocol: Margarito Protocol Maximum Predicted HR: 148 bpm Target HR: 126 bpm % Maximum Predicted HR: 105 % DurationHeart Rate Stage (mm:ss) (bpm) BP Comment BASELINE 67 118/78 STAGE 1 3:00 113 140/60 STAGE 2 3:00 122 154/70 STAGE 3 3:00 155 162/68INCREASED SOB RECOVERY 82 122/70 Stress Duration: 9:00 mm:ss Maximum Stress HR: 155 bpm Baseline Echocardiogram Findings The estimated ejection fraction is 65 %. Stress Echo Wall motion Data Resting WM Intermediate WM Stress WM Resting Wall Motion Wall Motion Stress No regional wall motion No regional wall motion abnormalities noted. abnormalities noted. EKG Data Normal intervals are noted. The patient exercised according to the regular Margarito protocol for a total duration of 9:00. The maximum heart rate attained was 160 beats per minute. This was 108% of maximum predicted heart rate. The patient exercised into stage 4 of the Margarito protocol. During stress, there were no ST or T wave changes noted to suggest ischemia. No clinical angina was noted. Interpretation Summary The estimated ejection fraction is 65 %. Normal, adequate, treadmill echocardiogram. Negative for ischemia by EKG and echocardiographic criteria. No anginal symptoms noted. No arrhythmias noted. Appropriate blood pressure response to exercise. Average exercise capacity for age. Final LVEF is 75%. Test terminated due to the attainment target heart rate and dyspnea. Ordering Physician: Ayo Pineda Referring Physician: Ayo Pineda Performed By: Charity Patrick, ERIN, RVT
== END ==
PROVIDERS: Referring Provider Internal Medicine Cardiovascular Disease; Visit Provider Internal Medicine Cardiovascular Disease
DX: I25.10 Atherosclerotic heart disease of native coronary artery without angina pectoris (principal); Z95.5 Presence of coronary angioplasty implant and graft
CPT/HCPCS: 93017; 93350

== ENCOUNTER 2018-09-09 06:00 | Outpatient (RCR) | payer SELFPAY ==
[2018-03-05 11:27] VITALS: BMI 25.6
[2018-06-28 09:13] VITALS: BMI 26.0
== END 2018-09-12 23:59 ==
LOC: CR 06:00
PROVIDERS: Referring Provider Internal Medicine Cardiovascular Disease; Visit Provider Internal Medicine Cardiovascular Disease
DX: Z00.00 Encounter for general adult medical examination without abnormal findings (principal)

== ENCOUNTER 2018-09-30 06:00 | Outpatient (RCR) | payer SELFPAY ==
[2018-03-05 11:27] VITALS: BMI 25.6
[2018-09-13 01:35] VITALS: BMI 26.0
== END 2018-10-12 23:59 ==
LOC: CR 06:00
PROVIDERS: Referring Provider Internal Medicine Cardiovascular Disease; Visit Provider Internal Medicine Cardiovascular Disease
DX: Z00.00 Encounter for general adult medical examination without abnormal findings (principal)

== ENCOUNTER 2018-10-04 08:24 | Day surgery (SDC) | payer MEDICARE, OTHER, SELFPAY ==
[2018-03-05 11:27] VITALS: BMI 25.6
[2018-08-24 11:34] VITALS: BMI 25.0
[2018-09-13 01:35] VITALS: BMI 26.0
[2018-09-29 12:46] LABS: Hematocrit 35.3 % (37-47); Hemoglobin 11.7 g/dl (12.0-15.0); Mean Corp Hgb Conc 33.1 g/gl (32-36); Mean Corpuscular Hgb 31.9 pg (27.0-32.0); Mean Corpuscular Volume 96.2 fL (81-99); Mean Platelet Vol. 9.4 fl (6.2-12.0); Platelet Count 272 K/mm3 (150-450); RBC Distribution Width CV 13.2 % (11.6-14.6); Red Blood Count 3.67 M/mm3 (4.2-5.4); White Blood Count 5.8 K/mm3 (4.4-11.0)
[2018-09-29 12:47] LABS: Scan Indicated on CBC? Y/N NO
[2018-09-29 13:31] LABS: AST(SGOT) 20 U/L (15-37); Alanine Aminotransfer ALT/SGPT 23 U/L (13-56); Albumin, Serum 3.4 g/dL (3.2-5.0); Alkaline Phosphatase 64 U/L (45-117); Anion Gap 5 (5-15); BUN 19 mg/dL (7-18); BUN/Creat Ratio 31.9 RATIO (10-20); Calcium,Total 8.5 mg/dL (8.5-10.1); Chloride 109 mmol/L (98-107); EST Glomerular Filtration Rate 105 mL/min (>60); Est Glom Filt Rate - Afr Amer 128 mL/min (>60); Globulin 3.3 g/dL (2.2-4.2); Glucose 93 mg/dL (74-106); Potassium 4.4 mmol/L (3.5-5.1); Protein, Total 6.7 g/dL (6.4-8.2); Sodium Level 141 mmol/L (136-145)
--- NOTE | 2018-10-01 15:35 | PCM.HP.BLA ---
History and Physical Date of Admission: 10/04/18 Surgical History and Physical Becky Short, a 73 year old female 2 0 0 0 2, presents for Vaginal Hysterectomy and AP Repair on October 04, 2018 at 10:30. -- Prolapse Symptoms; UV Prolapse -- Becky presents here today with concerns regarding possible Uterine and Bladder prolapse. 72 y.o. G 2 P 2 post-menopausal non-smoker with concerns regarding having prolapse that she is sure she had for at least ten years, but has worsened in the last two years. a year ago and recently in a relationship and would like to have intercourse again. Admits to having a lot of pressure and periodic hematuria which she had checked at the [facility] and was told was due to the prolapse and would need to be fixed. Worsened bladder/uterine Prolapse which began 2 years. Becky claims it started gradually and has been present worsened in last 6 months. It occurs all the time. It is located in the vagina. Becky characterizes it to be non-radiating. Becky characterizes the quality low pelvic pressure, urinary retention/incontinence. Severity is moderate and not improving. Additional comments are: Has Cardic clearance, wants to proceed with surgery. MEDICATIONS HISTORY: Current medications prescribed by our practice are: 1. Estrace 0.01% (0.1 mg/gram) vaginal cream, one half gram per vagina twice weekly at Patient is also takin. folic acid 1 mg tablet, One pill by mouth once a day 2. methotrexate sodium 2.5 mg tablet, Six po once weekly 3. Crestor 20 mg tablet, One pill by mouth once a day 4. Plavix 75 mg tablet, One pill by mouth once a day 5. prednisone 5 mg tablet, One pill by mouth once a day prn 6. nitroglycerin 0.3 mg sublingual tablet, As Directed ALLERGIES: Sulfa (Sulfonamide Antibiotics), Hives and/or rash Infections - Chicken pox, Mumps and Measles Illnesses - RA, A-Fib, Minears Accidents - None Hospitalizations - see surgery Review of Systems: GENERAL - Denies fever, or chills SKIN - Denies skin changes EYES - wears eye glasses EARS - Denies difficulty hearing NOSE - Denies nasal congestion or bleeding MOUTH - Denies sore throat or difficulty swallowing NECK - Denies pain or swelling RESPIRATORY - Denies shortness of breath or wheezing CARDIOVASCULAR - Denies palpitations or chest pain GASTROINTESTINAL - Denies nausea, vomiting, diarrhea, constipation GENITOURINARY - Denies dysuria, frequency of urination, incontinence of urine MUSCULOSKELETAL - Denies joint or muscle pain NEUROLOGICAL - Denies localized numbness or weakness PSYCHIATRIC - Denies depression or anxiety ENDOCRINE - Denies heat or cold intolerance, weight loss or gain HEMATO-IMMUNOLOGIC - Denies excesive bleeding with cuts SOCIAL HISTORY: Alcohol Use - RARELY Smoking - Never Diet - no special diet Lifestyle - moderate stress lifestyle and Exercise - active Seat Belt Use - always 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 Illicit Drug Use - None Sexual Activity - single sexual partner Control - postmenopausal FAMILY HISTORY: MENSTRUAL HISTORY: LMP Known?- Postmenopausal PAST PREGNANCIES: Total Pregnancies - 2; Full Term Pregnancies - 2; Premature - 0; Abortions, Induced - 0; Abortions, Spontaneous - 0; Ectopics - 0; Multiple Births - 0; Living Children - 2 SURGICAL HISTORY: 2011 Bilateral Carpel Tunnel ; - PHYSICAL EXAM BP- 114/74 Sitting, Right arm, regular cuff Temp- 97.8 Taken Orally Weight- 133.48050 lbs Height- 59.5 inch BMI:26.47 CONSTITUTIONAL - NAD, well nourished, and well developed SKIN - No rash, lesions, or ulcers HEENT - Normocephalic, PERRLA, EOMI NECK - No nodes, no nuchal rigidity and thyroid normal size and texture LYMPH NODES - Palpation of lymph nodes in neck and groins within normal limits LUNGS - CTA x2 without wheezes, crackles or rales CARDIAC - Regular rate and rhythm without rubs, murmurs, or gallops ABDOMEN - Without hepatosplenomegaly, distention, masses, rebound, or guarding; normal bowel sounds; no hernias EXTREMITIES - No edema or calf tenderness NEUROLOGICAL - Cranial nerves II-XII grossly intact PSYCHIATRIC - A and O to time, place, person, mood and affect External Genitial Vagina - non-tender without lesions Urethra/Urethral Meatus - non-tender Bladder - non-tender Vagina - loss of rugae, large cystocele, moderate rectocele and cystocele 3-4 cm outside introitus with bearing down Cervix - without cervical motion tenderness and has normal size and features without evident lesions and cervix protrudes 1 cm outside the introitus with bearing down Uterus - 5-6 cm in size, mobile and nontender Adnexa - clear without massess or tenderness ASSESSMENT/PLAN: 1. Cystocele Midline, Incomplete Uterovaginal Prolapse and Rectocele Discussed options for treatment including expectant management, pessary or proceeding with Vaginal Hyst, AP Repair. Wants surgery. Discussed RBAs and all questions answered. Continue intravaginal HRT. Has cardio clearance now.
[2018-10-04] VITALS (13 sets, daily range): BP systolic 99–129; BP diastolic 57–70; PULSE 57–95; RESP 16; TEMP 36.3–36.8; O2SAT 92–100; BMI 25.9
--- NOTE | 2018-10-04 10:35 | HYST_PTH ---
PATIENT: JIM MAN LOC: [facility] [place] U#:[id number] AGE/SX: 73/F ROOM: RE10/04/[address]: Dr. Juventino Sandy MD : [id number] BED: DIS: 10/05/2018 SPEC #: [id number] RECD: 10/05/18 08:41 STATUS: SHER EMERY #: [id number] BOBO: 10/04/18 10:[address]: Juventino Sandy DEPT: SURGICAL PATHOLOGY RECD BY: Macario Rojas ENTERED: 10/05/18 11:24 SP TYPE: HYSTERECT OTHR DR: No Primary Care Phys Tissues: Uterus, NOS Procedures: Surgery Specimen Level II Surgery Specimen Level V HEADER OPERATION: Vaginal hysterectomy, anterior and posterior repair PRE-OP DIAGNOSIS: Cystocele midline, incomplete uterovaginal prolapse and rectocele TISSUE SUBMITTED: Uterus, cervix, vaginal mucosa MICROSCOPIC DIAGNOSIS Uterus, hysterectomy: Cervix - nabothian cysts and mild chronic inflammation. Endometrium - simple cystic hyperplasia without atypia, focal. Myometrium - leiomyomas and adenomyosis. Vaginal mucosa, anterior and posterior repair: Minimal chronic inflammation. AM:neva 10/06/18 MICROSCOPIC DESCRIPTION Slides are reviewed. GROSS DESCRIPTION Received in fixative is one container labeled with the patient's name and designated uterus. The specimen consists of a uterus with attached cervix measuring 9 x 4 x 2.6 cm and weighing 50 gm. The ectocervix is unremarkable. The cervical os is oval in contour. The endocervical canal measures 2.6 cm in length and is grossly unremarkable. The triangular endometrial cavity measures 2.5 x 2 cm. The reddish-pate endometrium measures up to 0.1 cm in thickness. The myometrium measures 1.2 cm in average thickness and is distorted by two rubbery nodules ranging in size from 1 to 2.2 cm. The nodules are subserosal in location. Serial sections of nodules reveal whorled appearances without areas of cyst formation or necrosis. Also present in the specimen container are four irregular fragments of glistening pate mucosa which has hemorrhagic submucosal tissue measuring in aggregate 7 x 5 x 1 cm. No mucosal mass lesions are identified. Supervisor Ride Assembly sections are submitted as follows: 1 - anterior cervix, 2 - posterior cervix, 3 - anterior uterine wall, 4 & 5 - posterior myometrial wall, 6 - largest myometrial mass, 7 - smaller myometrial mass, 8 - vaginal mucosa. / AM:neva 10/05/18 TC:2 CPT: 39069, 92635
--- NOTE | 2018-10-04 11:22 | PCM.OPRPT ---
Report of Operation Date of Procedure: 10/04/18 Pre-Operative Diagnosis: Uterovaginal Prolapse, Cystocele, Rectocele Post-Operative Diagnosis: Uterovaginal Prolapse, Cystocele, Rectocele Surgery/Procedure Performed:: Vaginal Hysterectomy, Anterior Posterior Repair Description of Surgical Findings:: 6 cm uterus that protruded 2 cm outside the introitus with tenaculum pulldown, large cystocele, moderate rectocele. Short vagina. linux system engineer: January Vaz Type of Anesthesia:: General - Endotracheal Anesthesiologist: Jeffery Dodson Specimen's removed: Uterus and vaginal mucosa Drains: Brunson to straight drain Estimated Blood Loss (mL): 100 cc Fluids Replaced: Crystalloid Description of Procedure: Surgeon: Juventino Sandy MD, FACOG Indications: This is a 73-year-old who is been having problems with uterovaginal prolapse symptoms. Conservative measures including pessary trial have not been helpful. Given this the patient desires that we proceed the above procedure. She has been counseled regarding the risk and indications of this procedure including the possibility of bleeding, infection, and injury to surrounding structures such as bowel bladder. All questions were answered. Procedure: Patient was taken to the operating room where after induction of general anesthesia she was placed in the dorsal lithotomy position and prepped and draped in the usual sterile fashion. A Brunson catheter was placed. Anterior cervix was grasped with a tenaculum and anterior cervix circumscribed with cautery on a setting of 35 W coagulation. Anterior vaginal mucosa was undermined and anterior peritoneum was easily entered. The posterior aspect of the cervix was circumscribed with a knife and posterior peritoneum easily entered. Progressive bites were taken on either side of the uterine cervix and each pedicle ligated with 0 Vicryl suture. Superior pedicles were ligated ?2 with 0 Vicryl suture and sidewall pedicles were examined and noted to be hemostatic. Posterior vaginal cuff was oversewn with running locked 0 Vicryl suture. Hemostasis was noted and peritoneum was closed in a pursestring fashion incorporating superior pedicles into the stitch. Attention was turned toward the anterior repair portion of the procedure. Anterior vaginal mucosa was undermined and divided and then imbricated toward the midline with interrupted 0 Vicryl sutures. Vaginal mucosa was trimmed and then closed with interrupted 2-0 chromic suture. Vaginal cuff was then closed front to back with interrupted [id number] 0 Vicryl suture. Hemostasis was noted. Attention was turned toward the posterior repair portion of the procedure. Remnants of the hymenal ring were grasped with Allises and a V-shaped incision was made in the perineum. Rectovaginal mucosa was then undermined divided and then imbricated toward the midline with interrupted 0 Vicryl suture. Vaginal mucosa was trimmed and then closed with running locked 2-0 chromic suture. Remnants of the bulbocavernosus muscles were identified and brought toward the midline with a single [id number] 0 Vicryl suture and perineum was closed in the usual fashion with running and subcuticular, and retzyi-yd-lnteh 2-0 chromic suture. Hemostasis was noted. Brunson catheter was again opened and clear yellow urine was noted. Vagina was packed with iodoform tape. Patient tolerated the procedure well was taken to recovery room in satisfactory condition; sponge instrument and needle counts were all reportedly correct. Estimated blood loss for the case was less than 100 cc. Cefotan 2 g IV was given prior to beginning the operative procedure. There were no apparent complications of the surgery. Specimen to pathology was uterus and vaginal mucosa. Grafts/Implants Used: None - Complications None - Admit VTE Documentation VTE Present on Admission: Yes VTE Mechan Device Prophylaxis: SCD's VTE Pharm Prophylaxis ordered?: Yes
--- NOTE | 2018-10-04 11:25 | OP.PCM_ITS ---
Report of Operation Date of Procedure: 10/04/18 Pre-Operative Diagnosis: Uterovaginal Prolapse, Cystocele, Rectocele Post-Operative Diagnosis: Uterovaginal Prolapse, Cystocele, Rectocele Surgery/Procedure Performed:: Vaginal Hysterectomy, Anterior Posterior Repair Description of Surgical Findings:: 6 cm uterus that protruded 2 cm outside the introitus with tenaculum pulldown, large cystocele, moderate rectocele. Short vagina. sheet tester: January Vaz Type of Anesthesia:: General - Endotracheal Anesthesiologist: Jeffery Dodson Specimen's removed: Uterus and vaginal mucosa Drains: Brunson to straight drain Estimated Blood Loss (mL): 100 cc Fluids Replaced: Crystalloid Description of Procedure: Surgeon: Juventino Sandy MD, FACOG Indications: This is a 73-year-old who is been having problems with uterovaginal prolapse symptoms. Conservative measures including pessary trial have not been helpful. Given this the patient desires that we proceed the above procedure. She has been counseled regarding the risk and indications of this procedure including the possibility of bleeding, infection, and injury to surrounding structures such as bowel bladder. All questions were answered. Procedure: Patient was taken to the operating room where after induction of general anesthesia she was placed in the dorsal lithotomy position and prepped and draped in the usual sterile fashion. A Brunson catheter was placed. Anterior cervix was grasped with a tenaculum and anterior cervix circumscribed with cautery on a setting of 35 W coagulation. Anterior vaginal mucosa was undermined and anterior peritoneum was easily entered. The posterior aspect of the cervix was circumscribed with a knife and posterior peritoneum easily entered. Progressive bites were taken on either side of the uterine cervix and each pedicle ligated with 0 Vicryl suture. Superior pedicles were ligated ?2 with 0 Vicryl suture and sidewall pedicles were examined and noted to be hemostatic. Posterior vaginal cuff was oversewn with running locked 0 Vicryl suture. Hemostasis was noted and peritoneum was closed in a pursestring fashion incorporating superior pedicles into the stitch. Attention was turned toward the anterior repair portion of the procedure. Anterior vaginal mucosa was undermined and divided and then imbricated toward the midline with interrupted 0 Vicryl sutures. Vaginal mucosa was trimmed and then closed with interrupted 2-0 chromic suture. Vaginal cuff was then closed front to back with interrupted [id number] 0 Vicryl suture. Hemostasis was noted. Attention was turned toward the posterior repair portion of the procedure. Remnants of the hymenal ring were grasped with Allises and a V-shaped incision was made in the perineum. Rectovaginal mucosa was then undermined divided and then imbricated toward the midline with interrupted 0 Vicryl suture. Vaginal mucosa was trimmed and then closed with running locked 2-0 chromic suture. Remnants of the bulbocavernosus muscles were identified and brought toward the midline with a single ggvmhz-ev-goyon 0 Vicryl suture and perineum was closed in the usual fashion with running and subcuticular, and axngwm-gt-ajnro 2-0 chromic suture. Hemostasis was noted. Brunson catheter was again opened and clear yellow urine was noted. Vagina was packed with iodoform tape. Patient tolerated the procedure well was taken to recovery room in satisfactory condition; sponge instrument and needle counts were all reportedly correct. Estimated blood loss for the case was less than 100 cc. Cefotan 2 g IV was given prior to beginning the operative procedure. There were no apparent complications of the surgery. Specimen to pathology was uterus and vaginal mucosa. Grafts/Implants Used: None - Complications None - Admit VTE Documentation VTE Present on Admission: Yes VTE Mechan Device Prophylaxis: SCD's VTE Pharm Prophylaxis ordered?: Yes
--- NOTE | 2018-10-04 11:26 | DCINST_ITS ---
Discharge Diet: No Restrictions Discharge Activity: Return to Normal Activity, May Not Drive - while taking narcotic pain medications., May Shower May resume sexual activity in: 6-8 weeks Call your doctor if your incision/area has: Continuous Slow Oozing, Sudden Increased Bleeding, Increased Pain/ Swelling, Increased Redness, Foul Smelling Discharge Call your doctor if you observe: Fever of 101 or Higher, Inability to urinate, Inability to have a bowel movement, Using more than one pad per hour Allergies/Adverse Reactions: Allergies Sulfa (Sulfonamide Antibiotics) Allergy (Unknown, Verified 09/27/18 11:00) unknown Medications to take at Discharge folic acid 1 mg tablet 1 mg PO DAILY 02/12/18 methotrexate sodium 2.5 mg tablet 15 mg PO TU tab 02/12/18 prednisone 5 mg tablet 5 mg PO DAILY PRN 02/16/18 Aspirin E.C. [Ecotrin] 81 mg PO DAILY tab 03/06/18 nitroglycerin 0.4 mg sublingual tablet 0.4 mg SUBLINGUAL Q5-15M PRN #25 tab 03/19/18 clopidogrel 75 mg tablet See Rx Instructions PO DAILY #90 tab 04/30/18 metoprolol tartrate 25 mg tablet 25 mg PO BID #180 tab 04/30/18 rosuvastatin 20 mg tablet 20 mg PO DAILY #90 tab 05/03/18 promethazine 25 mg tablet 25 mg PO Q6H PRN #10 tab 06/28/18 Docusate Sodium [Colace] 100 mg PO BID PRN PRN #60 cap 10/04/18 Oxycodone [Oxyir] 5 mg PO Q6H PRN PRN 7 Days #10 tab 10/04/18 The following prescriptions were given: Oxycodone [Oxyir] 5 mg PO Q6H PRN PRN 7 Days #10 tab PRN Reason: Severe Pain (-03/24) Docusate Sodium [Colace] 100 mg PO BID PRN PRN #60 cap PRN Reason: Constipation Primary Care Physician: Care Physician,No Primary [Primary Care Provider] - Test Results: Test results from this visit will be discussed in further detail at your follow- up appointment, if applicable. Please Follow Up With: Juventino Sandy MD When: 2-3 weeks
[2018-10-04] MEDS: Ketorolac 15 MG/ML Vial IV ×2 (13:49→19:56)
[2018-10-04] MEDS: HYDROmorphone 0.5 MG/0.5 ML SYRINGE IV (14:38)
[2018-10-04] MEDS: oxyCODONE 5 MG Tablet PO (16:30)
[2018-10-04] MEDS: Enoxaparin 30 MG/0.3 ML Syringe SC (18:24)
[2018-10-04] MEDS: Lactated Ringers 250 ML 999 ML IV (18:51)
[2018-10-04] MEDS: Lactated Ringers 1,000 ML 125 ML IV (18:52)
[2018-10-04] MEDS: 0.9% NaCl Peripheral Flush Adult/Peds IV (19:57)
[2018-10-04] MEDS: Acetaminophen 500 MG Tablet 1000 MG PO (22:35)
[2018-10-05 02:06] VITALS: BP 109/54; PULSE 66; RESP 14; TEMP 36.7; O2SAT 94
[2018-10-05] MEDS: Ketorolac 15 MG/ML Vial IV ×2 (02:14→07:01)
[2018-10-05] MEDS: 0.9% NaCl Peripheral Flush Adult/Peds IV ×2 (02:14→07:02)
[2018-10-05] MEDS: Lactated Ringers 1,000 ML 125 ML IV (02:15)
[2018-10-05 06:02] LABS: Hematocrit 32.6 % (37-47); Hemoglobin 10.6 g/dl (12.0-15.0); Mean Corp Hgb Conc 32.5 g/gl (32-36); Mean Corpuscular Hgb 31.6 pg (27.0-32.0); Mean Corpuscular Volume 97.3 fL (81-99); Mean Platelet Vol. 9.6 fl (6.2-12.0); Platelet Count 214 K/mm3 (150-450); RBC Distribution Width CV 13.6 % (11.6-14.6); RBC Distribution Width SD 47.4 fl (35.1-43.9); Red Blood Count 3.35 M/mm3 (4.2-5.4)
[2018-10-05 06:08] LABS: Scan Indicated on CBC? Y/N NO
[2018-10-05 06:44] LABS: EST Glomerular Filtration Rate 58 mL/min (>60); Est Glom Filt Rate - Afr Amer 70 mL/min (>60)
--- NOTE | 2018-10-05 07:34 | PCM.PN.OB ---
Subjective: Patient without complaints. Tolerating diet. Denies any vaginal bleeding. A bit stiff overall this morning. - Physical Exam Vital Signs Temp Pulse Resp BP Pulse Ox 98.1 F 66 14 109/54 L 94 10/05/18 02:06 10/05/18 02:06 10/05/18 02:06 10/05/18 02:06 10/05/18 02:06 Oxygen Flow Rate (L/min) 1.5 Oxygen Delivery Method Room Air Weight: 130 lb 11.746 oz Body Mass Index (BMI) 25.9 Intake and Output for Last 24 Hours 10/03/18 10/04/18 10/05/18 23:59 23:59 23:59 Intake Total 4357 / 4357 2295 / 2295 Output Total 350 / 350 1875 / 1875 Balance 4007 / 4007 420 / 420 Laboratory Tests Past 24 Hrs 10/05/18 10/05/18 05:45 05:45 WBC 8.0 RBC 3.35 L Hgb 10.6 L Hct 32.6 L MCV 97.3 MCH 31.6 MCHC 32.5 RDW 13.6 RDW Differential 47.4 H Plt Count 214 MPV 9.6 Creatinine 1.00 Estim Creat Clear Calc 47.60 Est GFR (MDRD) Af Amer 70 Est GFR (MDRD) Non-Af 58 L Vaginal pack out and minimal bleeding. Hemoglobin okay. Medical Necessity - Tobacco Use Smoking Status: Never smoker Tobacco Use: Non-smoker Assessment/Plan All Active Problems (Last Reviewed 08/24/18 @ 11:34 by Elvira Almendarez) Otitis interna (Acute) UTI (urinary tract infection) (Acute) URI, acute (Acute) Cough (Acute) Chest pain (Acute) Dyspnea on exertion (Acute) Abnormal stress echo (Acute) Doing well postoperative day #1 status post vaginal hysterectomy and AP repair. Will release to home later today when voiding on own. Routine home-going instructions given.
[2018-10-05 08:16] VITALS: BP 94/53; PULSE 75; RESP 18; TEMP 37.2; O2SAT 94
[2018-10-05 08:20] VITALS: PULSE 80
[2018-10-05 08:23] VITALS: PULSE 80
[2018-10-05] MEDS: Metoprolol Tartrate 25 MG Tablet PO (08:23)
[2018-10-05] MEDS: oxyCODONE 5 MG Tablet PO (12:07)
[2018-10-05 12:08] VITALS: BP 131/61; PULSE 68; RESP 18; TEMP 36.9; O2SAT 95
== END 2018-10-05 12:53 | disposition home or self-care (01) ==
LOC: SDC 08:24 → AC 08:25 → MS2 10:52
PROVIDERS: Referring Provider Obstetrics & Gynecology; Visit Provider Obstetrics & Gynecology
PROC: (CPT 58260; principal; 2018-10-04 10:15)
DX: N81.2 Incomplete uterovaginal prolapse (principal); N88.8 Other specified noninflammatory disorders of cervix uteri; N72 Inflammatory disease of cervix uteri; D25.9 Leiomyoma of uterus, unspecified; N80.0 Endometriosis of uterus; E78.00 Pure hypercholesterolemia, unspecified; M06.9 Rheumatoid arthritis, unspecified; I25.10 Atherosclerotic heart disease of native coronary artery without angina pectoris; I48.91 Unspecified atrial fibrillation; I11.0 Hypertensive heart disease with heart failure; Z95.5 Presence of coronary angioplasty implant and graft; Z79.82 Long term (current) use of aspirin; Z79.01 Long term (current) use of anticoagulants; Z79.899 Other long term (current) drug therapy
CPT/HCPCS: 57260; 58260; 36415; 80053; 82565; 85027; 85610; 85730; 86850; 86900; 88302; 88307; J7120; A4216; J2405

== ENCOUNTER → 2018-10-14 12:23 | Outpatient (CLI) | payer MEDICARE, OTHER, SELFPAY ==
[2018-03-05 11:27] VITALS: BMI 25.6
[2018-04-30 11:17] VITALS: BMI 26.0
[2018-10-13 01:32] VITALS: BMI 25.0
[2018-10-14 13:59] LABS: Absolute Lymphocyte Count 2.39 X10^3/ul (0.83-4.51); Absolute Neutrophil Count 4.5 X10^3/uL (2.0-7.7); Basophil# 0.06 X10^3/uL; Basophil% 0.8 % (0-1); Eosinophils% 3.8 % (0-5); Hematocrit 38.4 % (37-47); Hemoglobin 12.6 g/dl (12.0-15.0); Lymphocyte # 2.39 X10^3/ul (4.0); Mean Corp Hgb Conc 32.8 g/gl (32-36); Mean Corpuscular Hgb 31.5 pg (27.0-32.0); Mean Platelet Vol. 9.4 fl (6.2-12.0); Monocyte# 0.69 X10^3/uL; Monocyte% 8.7 % (0-10); Neutrophil # 4.49 X10^3/uL (2.7-7.7); Neutrophil % 56.3 % (47-70); Platelet Count 448 K/mm3 (150-450); RBC Distribution Width CV 13.1 % (11.6-14.6); RBC Distribution Width SD 44.2 fl (35.1-43.9)
[2018-10-14 14:05] LABS: POSITIVE COUNT NO; POSITIVE DIFFERENTIAL NO; POSITIVE MORPHOLOGY NO
[2018-10-14 14:23] LABS: ALB/GLOB Ratio 0.9 RATIO (0.9-2.4); AST(SGOT) 22 U/L (15-37); Alanine Aminotransfer ALT/SGPT 23 U/L (13-56); Albumin, Serum 3.8 g/dL (3.2-5.0); Alkaline Phosphatase 84 U/L (45-117); Anion Gap 6 (5-15); BUN 21 mg/dL (7-18); Calcium,Total 9.1 mg/dL (8.5-10.1); Chloride 107 mmol/L (98-107); EST Glomerular Filtration Rate 87 mL/min (>60); Est Glom Filt Rate - Afr Amer 106 mL/min (>60); Globulin 4.1 g/dL (2.2-4.2); Glucose 89 mg/dL (74-106); Potassium 4.4 mmol/L (3.5-5.1); Protein, Total 7.9 g/dL (6.4-8.2); Sodium Level 141 mmol/L (136-145)
== END ==
LOC: MTLAB 12:25 → LAB 12:27
PROVIDERS: Referring Provider Internal Medicine Rheumatology; Visit Provider Internal Medicine Rheumatology
DX: M06.09 Rheumatoid arthritis without rheumatoid factor, multiple sites (principal); M18.0 Bilateral primary osteoarthritis of first carpometacarpal joints; Z79.899 Other long term (current) drug therapy
CPT/HCPCS: 36415; 80053; 85025

== ENCOUNTER 2018-12-09 06:00 | Outpatient (RCR) | payer SELFPAY ==
[2018-03-05 11:27] VITALS: BMI 25.6
[2018-10-13 01:32] VITALS: BMI 25.0
== END 2018-12-12 23:59 ==
LOC: CR 06:00
PROVIDERS: Referring Provider Internal Medicine Cardiovascular Disease; Visit Provider Internal Medicine Cardiovascular Disease
DX: Z00.00 Encounter for general adult medical examination without abnormal findings (principal)

== ENCOUNTER 2019-01-11 06:00 | Outpatient (RCR) | payer SELFPAY ==
[2018-03-05 11:27] VITALS: BMI 25.6
[2018-12-13 00:10] VITALS: BMI 25.9
== END 2019-01-12 23:59 ==
LOC: CR 06:00
PROVIDERS: Referring Provider Internal Medicine Cardiovascular Disease; Visit Provider Internal Medicine Cardiovascular Disease
DX: Z00.00 Encounter for general adult medical examination without abnormal findings (principal)

== ENCOUNTER → 2019-01-13 11:44 | Outpatient (CLI) | payer MEDICARE, OTHER, SELFPAY ==
[2018-03-05 11:27] VITALS: BMI 25.6
[2018-12-13 00:10] VITALS: BMI 25.9
[2019-01-13 12:56] LABS: Absolute Neutrophil Count 2.8 X10^3/uL (2.0-7.7); Basophil# 0.06 X10^3/uL; Basophil% 1.1 % (0-1); Eosinophil# 0.12 X10^3/uL; Eosinophils% 2.2 % (0-5); Hematocrit 37.8 % (37-47); Hemoglobin 12.4 g/dL (12.0-15.0); Lymphocyte % 33.7 % (19-41); Mean Corp Hgb Conc 32.8 g/dL (32-36); Mean Corpuscular Hgb 31.9 pg (27.0-32.0); Mean Corpuscular Volume 97.2 fL (81-99); Monocyte# 0.56 X10^3/uL; Monocyte% 10.5 % (0-10); NRBC Flagged by Analyzer 0 % (0-5); Neutrophil # 2.79 X10^3/uL (2.7-7.7); Neutrophil % 52.3 % (47-70); Platelet Count 277 K/mm3 (150-450); RBC Distribution Width CV 13.1 % (11.6-14.6); RBC Distribution Width SD 46.5 fl (35.1-43.9); Red Blood Count 3.89 M/mm3 (4.2-5.4); White Blood Count 5.3 K/mm3 (4.4-11.0)
[2019-01-13 13:22] LABS: ALB/GLOB Ratio 1.1 RATIO (0.9-2.4); AST(SGOT) 21 U/L (15-37); Alanine Aminotransfer ALT/SGPT 23 U/L (13-56); Albumin, Serum 3.8 g/dL (3.2-5.0); Alkaline Phosphatase 76 U/L (45-117); Anion Gap 8 (5-15); BUN 19 mg/dL (7-18); BUN/Creat Ratio 27.5 RATIO (10-20); Calcium,Total 8.8 mg/dL (8.5-10.1); Chloride 108 mmol/L (98-107); Creatinine, Serum 0.69 mg/dL (0.55-1.02); EST Glomerular Filtration Rate 89 mL/min (>60); Est Glom Filt Rate - Afr Amer 107 mL/min (>60); Globulin 3.5 g/dL (2.2-4.2); Glucose 92 mg/dL (74-106); Potassium 4.4 mmol/L (3.5-5.1); Protein, Total 7.3 g/dL (6.4-8.2); Sodium Level 141 mmol/L (136-145)
== END ==
PROVIDERS: Referring Provider Internal Medicine Rheumatology; Visit Provider Internal Medicine Rheumatology
DX: M06.051 Rheumatoid arthritis without rheumatoid factor, right hip (principal); M18.0 Bilateral primary osteoarthritis of first carpometacarpal joints; M35.7 Hypermobility syndrome; H81.03 Meniere's disease, bilateral; I48.0 Paroxysmal atrial fibrillation; I25.10 Atherosclerotic heart disease of native coronary artery without angina pectoris; E78.5 Hyperlipidemia, unspecified; Z79.899 Other long term (current) drug therapy
CPT/HCPCS: 36415; 80053; 85025

== ENCOUNTER 2019-02-10 06:00 | Outpatient (RCR) | payer SELFPAY ==
[2018-03-05 11:27] VITALS: BMI 25.6
[2018-12-13 00:10] VITALS: BMI 25.9
== END 2019-02-12 23:59 ==
LOC: CR 06:00
PROVIDERS: Referring Provider Internal Medicine Cardiovascular Disease; Visit Provider Internal Medicine Cardiovascular Disease
DX: Z00.00 Encounter for general adult medical examination without abnormal findings (principal)

== ENCOUNTER → 2019-03-01 13:01 | Outpatient (CLI) | payer MEDICARE, OTHER, SELFPAY ==
[2018-03-05 11:27] VITALS: BMI 25.6
[2019-02-24 11:05] VITALS: BMI 26.0
[2019-03-01 15:31] LABS: AST(SGOT) 27 U/L (15-37); Alanine Aminotransfer ALT/SGPT 26 U/L (13-56); Albumin, Serum 3.9 g/dL (3.2-5.0); Alkaline Phosphatase 78 U/L (45-117); Cholesterol 148 mg/dL (200); Globulin 3.8 g/dL (2.2-4.2); High Density Lipoprotein 60 mg/dL; Protein, Total 7.7 g/dL (6.4-8.2); Triglycerides 89 mg/dL; Very Low Density Lipoprotein 18 mg/dL (5-40)
== END ==
PROVIDERS: Family Provider Family Medicine; PCP Family Medicine; Referring Provider Internal Medicine Cardiovascular Disease; Visit Provider Internal Medicine Cardiovascular Disease
DX: E78.5 Hyperlipidemia, unspecified (principal)
CPT/HCPCS: 36415; 80061; 80076

== ENCOUNTER 2019-03-08 06:00 | Outpatient (RCR) | payer SELFPAY ==
[2018-03-05 11:27] VITALS: BMI 25.6
[2018-12-13 00:10] VITALS: BMI 25.9
== END 2019-03-14 23:59 ==
LOC: CR 06:00
PROVIDERS: Referring Provider Internal Medicine Cardiovascular Disease; Visit Provider Internal Medicine Cardiovascular Disease
DX: Z00.00 Encounter for general adult medical examination without abnormal findings (principal)

== ENCOUNTER 2019-03-15 07:01 | Outpatient (RCR) | payer SELFPAY ==
[2018-03-05 11:27] VITALS: BMI 25.6
[2019-02-24 11:05] VITALS: BMI 26.0
== END 2019-04-14 23:59 ==
LOC: CR 07:01
PROVIDERS: Family Provider Family Medicine; PCP Family Medicine; Referring Provider Internal Medicine Cardiovascular Disease; Visit Provider Internal Medicine Cardiovascular Disease
DX: Z00.00 Encounter for general adult medical examination without abnormal findings (principal)

== ENCOUNTER → 2019-03-18 15:23 | Outpatient (CLI) | payer MEDICARE, OTHER, SELFPAY ==
[2018-03-05 11:27] VITALS: BMI 25.6
[2019-02-24 11:05] VITALS: BMI 26.0
[2019-03-18 17:02] LABS: Absolute Lymphocyte Count 2.39 X10^3/uL (0.83-4.51); Absolute Neutrophil Count 3.4 X10^3/uL (2.0-7.7); Basophil# 0.07 X10^3/uL; Eosinophil# 0.24 X10^3/uL; Eosinophils% 3.5 % (0-5); Hematocrit 38.1 % (37-47); Hemoglobin 12.3 g/dL (12.0-15.0); Lymphocyte # 2.39 X10^3/ul (4.0); Lymphocyte % 34.8 % (19-41); Mean Corp Hgb Conc 32.3 g/dL (32-36); Mean Corpuscular Hgb 31.3 pg (27.0-32.0); Mean Corpuscular Volume 96.9 fL (81-99); Monocyte# 0.72 X10^3/uL; Monocyte% 10.5 % (0-10); NRBC Flagged by Analyzer 0 % (0-5); Neutrophil # 3.42 X10^3/uL (2.7-7.7); Neutrophil % 49.9 % (47-70); Platelet Count 320 K/mm3 (150-450); RBC Distribution Width CV 12.8 % (11.6-14.6); RBC Distribution Width SD 45.6 fl (35.1-43.9); Red Blood Count 3.93 M/mm3 (4.2-5.4); White Blood Count 6.9 K/mm3 (4.4-11.0)
[2019-03-18 17:23] LABS: ALB/GLOB Ratio 0.8 RATIO (0.9-2.4); AST(SGOT) 15 U/L (15-37); Alanine Aminotransfer ALT/SGPT 17 U/L (13-56); Albumin, Serum 3.4 g/dL (3.2-5.0); Alkaline Phosphatase 85 U/L (45-117); Anion Gap 3 (5-15); BUN 18 mg/dL (7-18); BUN/Creat Ratio 22.6 RATIO (10-20); Calcium,Total 8.9 mg/dL (8.5-10.1); Chloride 108 mmol/L (98-107); EST Glomerular Filtration Rate 75 mL/min (>60); Est Glom Filt Rate - Afr Amer 91 mL/min (>60); Globulin 4.3 g/dL (2.2-4.2); Glucose 91 mg/dL (74-106); Potassium 4.3 mmol/L (3.5-5.1); Protein, Total 7.7 g/dL (6.4-8.2); Sodium Level 140 mmol/L (136-145)
== END ==
PROVIDERS: Family Provider Family Medicine; PCP Family Medicine; Referring Provider Internal Medicine Rheumatology; Visit Provider Internal Medicine Rheumatology
DX: M06.051 Rheumatoid arthritis without rheumatoid factor, right hip (principal); M18.0 Bilateral primary osteoarthritis of first carpometacarpal joints; M35.7 Hypermobility syndrome; H81.03 Meniere's disease, bilateral; I48.0 Paroxysmal atrial fibrillation; I25.10 Atherosclerotic heart disease of native coronary artery without angina pectoris; E78.5 Hyperlipidemia, unspecified; Z79.899 Other long term (current) drug therapy
CPT/HCPCS: 36415; 80053; 85025

== ENCOUNTER 2019-04-19 06:51 | Outpatient (RCR) | payer SELFPAY ==
[2018-03-05 11:27] VITALS: BMI 25.6
[2019-02-24 11:05] VITALS: BMI 26.0
== END 2019-05-14 23:59 ==
LOC: CR 06:51
PROVIDERS: Family Provider Family Medicine; PCP Family Medicine; Referring Provider Internal Medicine Cardiovascular Disease; Visit Provider Internal Medicine Cardiovascular Disease
DX: Z00.00 Encounter for general adult medical examination without abnormal findings (principal)

== ENCOUNTER → 2019-11-14 15:24 | Outpatient (CLI) | payer MEDICARE, OTHER, SELFPAY ==
[2018-03-05 11:27] VITALS: BMI 25.6
[2019-02-24 11:05] VITALS: BMI 26.0
[2019-10-20 09:21] VITALS: BMI 25.9
[2019-11-14 16:48] LABS: Absolute Lymphocyte Count 2.35 X10^3/uL (0.83-4.51); Basophil# 0.05 X10^3/uL; Basophil% 0.7 % (0-1); Eosinophil# 0.16 X10^3/uL; Eosinophils% 2.2 % (0-5); Hematocrit 37.5 % (37-47); Lymphocyte # 2.35 X10^3/ul (4.0); Lymphocyte % 32.7 % (19-41); Mean Corpuscular Hgb 32.2 pg (27.0-32.0); Mean Corpuscular Volume 100.5 fL (81-99); Mean Platelet Vol. 10.1 fl (6.2-12.0); Monocyte# 0.58 X10^3/uL; Monocyte% 8.1 % (0-10); NRBC Flagged by Analyzer 0 % (0-5); Neutrophil # 4.03 X10^3/uL (2.7-7.7); Platelet Count 292 K/mm3 (150-450); RBC Distribution Width CV 13.2 % (11.6-14.6); RBC Distribution Width SD 48.3 fl (35.1-43.9); Red Blood Count 3.73 M/mm3 (4.2-5.4); White Blood Count 7.2 K/mm3 (4.4-11.0)
[2019-11-14 17:06] LABS: Bilirubin, Direct 0.21 mg/dL (0.00-0.30); Cholesterol 145 mg/dL (200); High Density Lipoprotein 58 mg/dL; Triglycerides 112 mg/dL; Very Low Density Lipoprotein 22 mg/dL (5-40)
[2019-11-14 17:09] LABS: ALB/GLOB Ratio 1.1 RATIO (0.9-2.4); AST(SGOT) 18 U/L (15-37); Alanine Aminotransfer ALT/SGPT 23 U/L (13-56); Albumin, Serum 3.9 g/dL (3.2-5.0); Alkaline Phosphatase 64 U/L (45-117); Anion Gap 7 (5-15); BUN 23 mg/dL (7-18); BUN/Creat Ratio 31.7 RATIO (10-20); Calcium,Total 9.1 mg/dL (8.5-10.1); Chloride 111 mmol/L (98-107); Creatinine, Serum 0.73 mg/dL (0.55-1.02); EST Glomerular Filtration Rate 84 mL/min (>60); Est Glom Filt Rate - Afr Amer 101 mL/min (>60); Globulin 3.5 g/dL (2.2-4.2); Glucose 142 mg/dL (74-106); Potassium 3.7 mmol/L (3.5-5.1); Protein, Total 7.4 g/dL (6.4-8.2); Sodium Level 145 mmol/L (136-145)
== END ==
PROVIDERS: Internal Medicine Cardiovascular Disease; PCP Family Medicine; Visit Provider Internal Medicine Rheumatology
DX: M06.062 Rheumatoid arthritis without rheumatoid factor, left knee (principal); M18.0 Bilateral primary osteoarthritis of first carpometacarpal joints; M35.7 Hypermobility syndrome; H81.03 Meniere's disease, bilateral; I48.0 Paroxysmal atrial fibrillation; I25.10 Atherosclerotic heart disease of native coronary artery without angina pectoris; E78.5 Hyperlipidemia, unspecified; Z79.899 Other long term (current) drug therapy
CPT/HCPCS: 36415; 80053; 80061; 80076; 82248; 85025

== ENCOUNTER → 2019-11-16 15:47 | Outpatient (CLI) | payer MEDICARE, OTHER, SELFPAY ==
[2018-03-05 11:27] VITALS: BMI 25.6
[2019-10-20 09:21] VITALS: BMI 25.9
[2019-11-16 16:06] LABS: Pathologist Comment May follow
[2019-11-16 16:49] LABS: Synovial Fld Mononuclear WBC % 90.1 %; Synovial Fld Polynuclear WBC # 0.115 10^3/uL; Synovial Fld Polynuclear WBC % 9.9 %
[2019-11-16 18:18] LABS: AUTO B FLUID DILUENT BKGD CT WBC <0.1 RBC <0.01 (W<.1,R<.01); Appearance /Synovial Fluid Sl Cl (CLEAR); Color / Synovial Fluid Yellow (Pale Yellow); Source- Body Fluid SYNOVIAL
[2019-11-16 18:19] LABS: RBC /Synovial Fluid 500 /mm3 (0)
[2019-11-16 18:20] LABS: Body Fluid QC Type(s) BF2Q
[2019-11-16 18:41] LABS: Lymph 91 %; Neutrophil 9 % (0-25)
[2019-11-17 12:18] LABS: Pathologist Review Reviewed
== END ==
PROVIDERS: PCP Family Medicine; Visit Provider Internal Medicine Rheumatology
DX: M06.061 Rheumatoid arthritis without rheumatoid factor, right knee (principal); M25.561 Pain in right knee; M18.0 Bilateral primary osteoarthritis of first carpometacarpal joints; M35.7 Hypermobility syndrome; H81.03 Meniere's disease, bilateral; I48.0 Paroxysmal atrial fibrillation; I25.10 Atherosclerotic heart disease of native coronary artery without angina pectoris; E78.5 Hyperlipidemia, unspecified; Z79.899 Other long term (current) drug therapy
CPT/HCPCS: 87070; 87075; 87205; 89050; 89051; 89060

== ENCOUNTER → 2019-11-29 15:18 | Outpatient (CLI) | payer MEDICARE, OTHER, SELFPAY ==
[2018-03-05 11:27] VITALS: BMI 25.6
[2019-10-20 09:21] VITALS: BMI 25.9
[2019-11-29 17:49] LABS: Absolute Lymphocyte Count 2.26 X10^3/uL (0.83-4.51); Absolute Neutrophil Count 4.9 X10^3/uL (2.0-7.7); Basophil# 0.04 X10^3/uL; Basophil% 0.5 % (0-1); Eosinophil# 0.13 X10^3/uL; Eosinophils% 1.6 % (0-5); Hematocrit 39.4 % (37-47); Lymphocyte # 2.26 X10^3/ul (4.0); Lymphocyte % 27.9 % (19-41); Mean Platelet Vol. 10.1 fl (6.2-12.0); Monocyte# 0.73 X10^3/uL; NRBC Flagged by Analyzer 0 % (0-5); Neutrophil # 4.89 X10^3/uL (2.7-7.7); Neutrophil % 60.5 % (47-70); Platelet Count 320 K/mm3 (150-450); RBC Distribution Width CV 13.1 % (11.6-14.6); RBC Distribution Width SD 47.3 fl (35.1-43.9); Red Blood Count 3.94 M/mm3 (4.2-5.4); White Blood Count 8.1 K/mm3 (4.4-11.0)
[2019-11-29 17:52] LABS: Erythrocyte Sedimentation Rate 7 mm/hr (0-30)
[2019-11-29 18:14] LABS: CRP < 2.90 mg/L (0.0-3.0); Rheumatoid Factor < 10.0 IU/mL (<15)
[2019-12-02 12:49] LABS: ANTINUCLEAR ANTIBODIES DIRECT Negative (Negative)
== END ==
PROVIDERS: PCP Family Medicine; Referring Provider Physician Assistant; Visit Provider Physician Assistant
DX: M17.11 Unilateral primary osteoarthritis, right knee (principal); Z79.899 Other long term (current) drug therapy
CPT/HCPCS: 36415; 84550; 85025; 85652; 86038; 86140; 86431

== ENCOUNTER → 2019-12-23 14:40 | Outpatient (CLI) | payer MEDICARE, OTHER, SELFPAY ==
[2018-03-05 11:27] VITALS: BMI 25.6
[2019-10-20 09:21] VITALS: BMI 25.9
--- NOTE | 2019-12-23 14:42 | BI_ITS ---
MAMMOGRAPHY - BILATERAL SCREENING 3-D TOMOSYNTHESIS REASON FOR EXAM: Female, 74 years old. Routine screening PERTINENT HISTORY: FAMHX MAT GMA AGE 89, CURR VAG CR SINCE 2019 -- NO SX. TECHNIQUE: 2-D mammograms and 3-D Tomosynthesis of the breast (s) were performed. CAD was performed. COMPARISON: 2018 FINDINGS: The breast composition is heterogeneously dense that can obscure small breast masses. Scattered benign calcifications are seen. No dense spiculated masses or suspicious microcalcifications are identified. No architectural distortion is identified. There is no skin thickening or retraction. There has been no significant change since the prior study. BI/SCREEN MAMM (CAD) W/ESTUARDO BILAT IMPRESSION: No mammographic signs of malignancy. Routine yearly mammograms recommended. ASSESSMENT CATEGORY: BIRADS Category 2: Benign. A letter regarding these results will be sent to the patient by the facility within 30 days. FOLLOW UP RECOMMENDATION: Yearly follow up mammogram recommended. (A) Approximately 10% of breast cancers are not detected by mammography. A normal mammogram should not delay biopsy of a clinically suspicious abnormality. Electronically Signed: Dong Kaur MD at 15:24 EDT , Service support ,
== END ==
PROVIDERS: PCP Family Medicine; Referring Provider Obstetrics & Gynecology; Visit Provider Obstetrics & Gynecology
DX: Z12.31 Encounter for screening mammogram for malignant neoplasm of breast (principal)
CPT/HCPCS: 77063; 77067

== ENCOUNTER → 2020-02-09 14:36 | Outpatient (CLI) | payer MEDICARE, OTHER, SELFPAY ==
[2018-03-05 11:27] VITALS: BMI 25.6
[2019-10-20 09:21] VITALS: BMI 25.9
[2020-02-09 15:54] LABS: Absolute Lymphocyte Count 2.13 X10^3/uL (0.83-4.51); Absolute Neutrophil Count 3.5 X10^3/uL (2.0-7.7); Basophil# 0.08 X10^3/uL; Basophil% 1.2 % (0-1); Eosinophil# 0.13 X10^3/uL; Hematocrit 36.9 % (37-47); Hemoglobin 12.1 g/dL (12.0-15.0); Lymphocyte # 2.13 X10^3/ul (4.0); Lymphocyte % 32.9 % (19-41); Mean Corp Hgb Conc 32.8 g/dL (32-36); Mean Corpuscular Hgb 32.6 pg (27.0-32.0); Mean Corpuscular Volume 99.5 fL (81-99); Mean Platelet Vol. 10.3 fl (6.2-12.0); Monocyte# 0.65 X10^3/uL; NRBC Flagged by Analyzer 0 % (0-5); Neutrophil # 3.47 X10^3/uL (2.7-7.7); Neutrophil % 53.7 % (47-70); Platelet Count 280 K/mm3 (150-450); RBC Distribution Width CV 12.7 % (11.6-14.6); RBC Distribution Width SD 45.8 fl (35.1-43.9); Red Blood Count 3.71 M/mm3 (4.2-5.4); White Blood Count 6.5 K/mm3 (4.4-11.0)
[2020-02-09 16:23] LABS: ALB/GLOB Ratio 1.1 RATIO (0.9-2.4); AST(SGOT) 21 U/L (15-37); Alanine Aminotransfer ALT/SGPT 22 U/L (13-56); Albumin, Serum 3.8 g/dL (3.2-5.0); Alkaline Phosphatase 70 U/L (45-117); Anion Gap 5 (5-15); BUN 19 mg/dL (7-18); BUN/Creat Ratio 28.4 RATIO (10-20); Calcium,Total 8.5 mg/dL (8.5-10.1); Chloride 108 mmol/L (98-107); Creatinine, Serum 0.67 mg/dL (0.55-1.02); EST Glomerular Filtration Rate 92 mL/min (>60); Est Glom Filt Rate - Afr Amer 111 mL/min (>60); Globulin 3.5 g/dL (2.2-4.2); Glucose 90 mg/dL (74-106); Potassium 3.9 mmol/L (3.5-5.1); Protein, Total 7.3 g/dL (6.4-8.2); Sodium Level 141 mmol/L (136-145)
== END ==
PROVIDERS: PCP Family Medicine; Referring Provider Internal Medicine Rheumatology; Visit Provider Internal Medicine Rheumatology
DX: M06.062 Rheumatoid arthritis without rheumatoid factor, left knee (principal); M18.0 Bilateral primary osteoarthritis of first carpometacarpal joints; M35.7 Hypermobility syndrome; H81.03 Meniere's disease, bilateral; I48.0 Paroxysmal atrial fibrillation; I25.10 Atherosclerotic heart disease of native coronary artery without angina pectoris; E78.5 Hyperlipidemia, unspecified; Z79.899 Other long term (current) drug therapy
CPT/HCPCS: 36415; 80053; 85025

== ENCOUNTER → 2020-05-02 12:00 | Outpatient (CLI) | payer MEDICARE, OTHER, SELFPAY ==
[2018-03-05 11:27] VITALS: BMI 25.6
[2020-04-24 14:19] VITALS: BMI 25.0
[2020-05-02 15:18] LABS: Absolute Lymphocyte Count 1.98 X10^3/uL (0.83-4.51); Absolute Neutrophil Count 3.3 X10^3/uL (2.0-7.7); Basophil# 0.07 X10^3/uL; Basophil% 1.1 % (0-1); Eosinophil# 0.13 X10^3/uL; Eosinophils% 2.1 % (0-5); Hematocrit 39.5 % (37-47); Hemoglobin 12.5 g/dL (12.0-15.0); Lymphocyte # 1.98 X10^3/ul (4.0); Lymphocyte % 32.1 % (19-41); Mean Corp Hgb Conc 31.6 g/dL (32-36); Mean Corpuscular Hgb 32.1 pg (27.0-32.0); Mean Corpuscular Volume 101.3 fL (81-99); Mean Platelet Vol. 10.3 fl (6.2-12.0); Monocyte# 0.67 X10^3/uL; Monocyte% 10.9 % (0-10); NRBC Flagged by Analyzer 0 % (0-5); Neutrophil # 3.31 X10^3/uL (2.7-7.7); Neutrophil % 53.6 % (47-70); Platelet Count 303 K/mm3 (150-450); RBC Distribution Width CV 13.7 % (11.6-14.6); White Blood Count 6.2 K/mm3 (4.4-11.0)
[2020-05-02 16:07] LABS: ALB/GLOB Ratio 1.3 RATIO (0.9-2.4); AST(SGOT) 20 U/L (15-37); Alanine Aminotransfer ALT/SGPT 28 U/L (13-56); Albumin, Serum 4.1 g/dL (3.2-5.0); Alkaline Phosphatase 73 U/L (45-117); Anion Gap 3 (5-15); BUN 18 mg/dL (7-18); BUN/Creat Ratio 24.7 RATIO (10-20); Calcium,Total 9.3 mg/dL (8.5-10.1); Chloride 109 mmol/L (98-107); Creatinine, Serum 0.73 mg/dL (0.55-1.02); EST Glomerular Filtration Rate 83 mL/min (>60); Est Glom Filt Rate - Afr Amer 100 mL/min (>60); Globulin 3.2 g/dL (2.2-4.2); Glucose 97 mg/dL (74-106); Potassium 4.4 mmol/L (3.5-5.1); Protein, Total 7.3 g/dL (6.4-8.2); Sodium Level 140 mmol/L (136-145)
== END ==
PROVIDERS: PCP Family Medicine; Referring Provider Internal Medicine Rheumatology; Visit Provider Internal Medicine Rheumatology
DX: M06.062 Rheumatoid arthritis without rheumatoid factor, left knee (principal); Z79.899 Other long term (current) drug therapy; M18.0 Bilateral primary osteoarthritis of first carpometacarpal joints; M35.7 Hypermobility syndrome; H81.03 Meniere's disease, bilateral; I48.0 Paroxysmal atrial fibrillation; I25.10 Atherosclerotic heart disease of native coronary artery without angina pectoris; E78.5 Hyperlipidemia, unspecified
CPT/HCPCS: 36415; 80053; 85025

== ENCOUNTER → 2020-10-12 09:24 | Outpatient (CLI) | payer MEDICARE, OTHER, SELFPAY ==
[2018-03-05 11:27] VITALS: BMI 25.6
[2020-04-24 14:19] VITALS: BMI 25.0
[2020-10-12 09:55] LABS: Absolute Lymphocyte Count 1.59 X10^3/uL (0.83-4.51); Absolute Neutrophil Count 2.7 X10^3/uL (2.0-7.7); Basophil# 0.07 X10^3/uL; Basophil% 1.4 % (0-1); Eosinophil# 0.17 X10^3/uL; Eosinophils% 3.5 % (0-5); Hematocrit 38.5 % (37-47); Hemoglobin 12.4 g/dL (12.0-15.0); Lymphocyte # 1.59 X10^3/ul (0.83-4.51); Lymphocyte % 32.8 % (19-41); Mean Corp Hgb Conc 32.2 g/dL (32-36); Mean Corpuscular Hgb 32.6 pg (27.0-32.0); Mean Corpuscular Volume 101.3 fL (81-99); Mean Platelet Vol. 9.4 fl (6.2-12.0); Monocyte# 0.32 X10^3/uL; Monocyte% 6.6 % (0-10); NRBC Flagged by Analyzer 0 % (0-5); Neutrophil % 55.7 % (47-70); Platelet Count 327 K/mm3 (150-450); RBC Distribution Width CV 13.1 % (11.6-14.6); RBC Distribution Width SD 48.6 fl (35.1-43.9); White Blood Count 4.9 K/mm3 (4.4-11.0)
[2020-10-12 10:18] LABS: ALB/GLOB Ratio 1.2 RATIO (0.9-2.4); AST(SGOT) 25 U/L (15-37); Alanine Aminotransfer ALT/SGPT 26 U/L (13-56); Albumin, Serum 3.8 g/dL (3.2-5.0); Alkaline Phosphatase 70 U/L (45-117); Anion Gap 3 (5-15); BUN 11 mg/dL (7-18); BUN/Creat Ratio 14.6 RATIO (10-20); Calcium,Total 9.1 mg/dL (8.5-10.1); Chloride 109 mmol/L (98-107); Creatinine, Serum 0.75 mg/dL (0.55-1.02); EST Glomerular Filtration Rate 80 mL/min (>60); Est Glom Filt Rate - Afr Amer 97 mL/min (>60); Globulin 3.2 g/dL (2.2-4.2); Glucose 104 mg/dL (74-106); Potassium 4.9 mmol/L (3.5-5.1); Sodium Level 141 mmol/L (136-145)
== END ==
PROVIDERS: PCP Family Medicine; Referring Provider Internal Medicine Rheumatology; Visit Provider Internal Medicine Rheumatology
DX: M06.062 Rheumatoid arthritis without rheumatoid factor, left knee (principal); M18.0 Bilateral primary osteoarthritis of first carpometacarpal joints; M35.7 Hypermobility syndrome; H81.03 Meniere's disease, bilateral; I48.0 Paroxysmal atrial fibrillation; I25.10 Atherosclerotic heart disease of native coronary artery without angina pectoris; E78.5 Hyperlipidemia, unspecified; Z79.899 Other long term (current) drug therapy
CPT/HCPCS: 36415; 80053; 85025

== ENCOUNTER → 2020-11-21 06:03 | Outpatient (CLI) | payer MEDICARE, OTHER, SELFPAY ==
[2018-03-05 11:27] VITALS: BMI 25.6
[2020-04-24 14:19] VITALS: BMI 25.0
--- NOTE | 2020-11-21 17:19 | STRESSREP ---
Stress Test Report Pharmacologic myocardial perfusion stress test. 75-year-old lady with a history of previous stenting of the LAD and diagonal vessel. Stress protocol: Resting EKG demonstrates normal sinus rhythm with a rate of 57 bpm resting blood pressure is 1 and 38 over 80 mmHg. 0.4 mg of regadenoson was infused per usual protocol followed by rapid intravenous saline flush injection continuous EKG monitoring was performed. At rest there were no ST or T wave changes noted to suggest ischemia and at peak infusion nonspecific ST changes were noted. The final blood pressure 122/68 mmHg. Myocardial perfusion protocol 11.2 mCi of technetium 99m sestamibi was injected at rest. 0.4 mg of regadenoson was infused. Protocol. At peak infusion 31.5 mCi of technetium 99m sestamibi was injected stress images were obtained stress and rest images were reconstructed and compared in the short axis vertical long and horizontal long axis. Gated images were also obtained. Perfusion SPECT analysis: Review of the stress images demonstrate normal uptake of tracer noted in all areas of the myocardium. The resting images similarly demonstrate normal uptake of tracer noted in all areas of the myocardium. No reversibility was noted to suggest ischemia no previous infarct was noted. Gated SPECT analysis: Gated ejection fraction is 79%. Conclusion: Normal pharmacologic myocardial perfusion stress test. Preserved ejection fraction.
== END ==
PROVIDERS: PCP Family Medicine; Referring Provider Physician Assistant Medical; Visit Provider Physician Assistant Medical
DX: I25.10 Atherosclerotic heart disease of native coronary artery without angina pectoris (principal); R07.9 Chest pain, unspecified; R06.09 Other forms of dyspnea; E78.00 Pure hypercholesterolemia, unspecified; I48.0 Paroxysmal atrial fibrillation
CPT/HCPCS: 78452; 93017; A9500; A4216; J2785

== ENCOUNTER → 2020-12-10 12:34 | Outpatient (CLI) | payer MEDICARE, OTHER, SELFPAY ==
[2018-03-05 11:27] VITALS: BMI 25.6
[2020-04-24 14:19] VITALS: BMI 25.0
--- NOTE | 2020-12-10 12:36 | CT_ITS ---
STUDY: CT RIGHT LOWER EXTREMITY WITHOUT CONTRAST REASON FOR EXAM: Right knee osteoarthritis, surgical planning. TECHNIQUE: Transaxial CT imaging of the lower extremity was performed. Coronal and sagittal images were reformatted. Individualized dose optimization techniques were used for this CT. COMPARISON: Radiographs of the right hip 04/21/2018. FINDINGS: Knee: There is joint space narrowing, subchondral cystic change of the posterior medial femoral condyle and subchondral eburnation of the medial femorotibial compartment (coronal reconstructions 25-32). There is preservation of the joint space of the lateral femorotibial compartment. There is mild to moderate joint space narrowing of the lateral aspect of the patellofemoral compartment (axial image 330). Normal proximal tibiofibular articulation. There is no joint effusion. The quadriceps tendon is grossly normal. The patellar tendon is grossly normal. Normal Hoffa''s fat pad. There is mild vascular calcification. Hip: There is mild right hip arthrosis with mild chondral thinning at the superior lateral aspect of the articulation (coronal reconstructions 56). Ankle: Normal tibiotalar, posterior subtalar, talonavicular and calcaneocuboid articulations. CT/Extremity Lower without Contra IMPRESSION: Osteoarthritis of the right knee. Electronically Signed: Kalia Mora MD at 14:02 EDT Tel , Service support ,
== END ==
PROVIDERS: PCP Family Medicine; Referring Provider Orthopaedic Surgery; Visit Provider Orthopaedic Surgery
DX: M17.11 Unilateral primary osteoarthritis, right knee (principal)
CPT/HCPCS: 73700

== ENCOUNTER 2020-12-24 18:51 | Observation (INO) | payer MEDICARE, OTHER, SELFPAY ==
[2018-03-05 11:27] VITALS: BMI 25.6
[2020-04-24 14:19] VITALS: BMI 25.0
[2020-12-17 12:10] LABS: Hemoglobin 11.9 g/dL (12.0-15.0); Mean Corp Hgb Conc 33.1 g/dL (32-36); Mean Corpuscular Hgb 32.8 pg (27.0-32.0); Mean Corpuscular Volume 99.2 fL (81-99); Mean Platelet Vol. 9.3 fl (6.2-12.0); Platelet Count 266 K/mm3 (150-450); RBC Distribution Width CV 13.4 % (11.6-14.6); RBC Distribution Width SD 47.8 fl (35.1-43.9); Red Blood Count 3.63 M/mm3 (4.2-5.4); White Blood Count 7.5 K/mm3 (4.4-11.0)
[2020-12-17 13:08] LABS: Anion Gap 4 (5-15); BUN 19 mg/dL (7-18); BUN/Creat Ratio 23.9 RATIO (10-20); Calcium,Total 9.1 mg/dL (8.5-10.1); Chloride 109 mmol/L (98-107); EST Glomerular Filtration Rate 75 mL/min (>60); Est Glom Filt Rate - Afr Amer 91 mL/min (>60); Glucose 97 mg/dL (74-106); Potassium 4.6 mmol/L (3.5-5.1); Sodium Level 140 mmol/L (136-145)
[2020-12-17 13:11] LABS: Magnesium 2.4 mg/dL (1.6-2.6)
[2020-12-17 13:13] LABS: Hemoglobin A1c 5.5 % (3.8-5.6)
[2020-12-24] VITALS (12 sets, daily range): BP systolic 108–133; BP diastolic 55–79; PULSE 57–76; RESP 16–18; TEMP 36.3–37.2; O2SAT 94–100; BMI 25.0
[2020-12-24 11:00] LABS: Bedside Glucose 110 mg/dL (70-110)
[2020-12-24] MEDS: Lactated Ringers 1,000 ML 125 ML IV ×3 (11:01→17:10)
[2020-12-24] MEDS: Gabapentin 600 MG Tablet PO (11:02)
[2020-12-24] MEDS: Cefazolin 2 GM in 0.9% Normal Saline 100 ML IV (12:55)
--- NOTE | 2020-12-24 13:30 | KNEE_PTH ---
PATIENT: JIM MAN LOC: MS3 U#:[id number] AGE/SX: 75/F ROOM: VA315 RE12/24/[address]: Dr. Kj Coker DO : 1945 BED: 1 DIS: 12/25/2020 SPEC #: [id number] RECD: 12/25/20 07:30 STATUS: SHER EMERY #: [id number] BOBO: 12/24/20 13:[address]: Kj Coker DEPT: SURGICAL PATHOLOGY RECD BY: Macario Rojas ENTERED: 12/25/20 08:32 SP TYPE: TOTAL KNEE OTHR DR: Dr. Juventino King MD Tissues: Knee, NOS Procedures: Decalcification bone/plaque Surgery Specimen Level IV HEADER OPERATION: ERAS, total knee replacement robotic arm assist PRE-OP DIAGNOSIS: Osteoarthritis right knee TISSUE SUBMITTED: Bone and tissue right knee MICROSCOPIC DIAGNOSIS Bone and soft tissue of right knee, total knee resection: Mild synovial hyperplasia. Severe degenerative joint disease. AM:neva 12/31/2020 MICROSCOPIC DESCRIPTION Slides are reviewed. GROSS DESCRIPTION Received is one container designated bone and soft tissue right knee. The specimen consists of multiple fragments of pate-yellow bone measuring in aggregate 16 x 12 x 2 cm. Also in the specimen container are multiple fragments of yellow-white soft tissue measuring in aggregate 2 x 1 x 0.5 cm. A number of bony fragments contain articular surfaces consistent with tibial plateau and femoral condyle and displaying prominent osteophyte formation, eburnation, and bone erosion. Quality Control sections are submitted in two cassettes as follows: 1 - soft tissue, 2 - bone after decalcification. / AM:neva 12/25/20 TC:5 [facility]: [id number]
--- NOTE | 2020-12-24 14:47 | PCM.OPRPT ---
Report of Operation Date of Procedure: 12/24/20 Pre-Operative Diagnosis: OA right knee Post-Operative Diagnosis: same Surgery/Procedure Performed:: right TKR Description of Surgical Findings:: Report of Operation Date of Procedure: Preoperative Diagnosis: [ right ] knee primary osteoarthritis Postoperative Diagnosis: [right ] knee primary osteoarthritis Operation: Robotic Assisted Knee Total Arthroplasty, [right ] knee Surgeon: Dr Kj Coker DO Delinquent Tax Collector Assistant: Doc Weiss PA-C Anesthesia: spinal Anesthesiologist: Loy Flores M.D. Findings: Stable knee with good patella tracking Specimen(s): Bony cuts Complications: No intraoperative complications Estimated Blood Loss: 20 cc IV Fluids: 1000 cc crystalloid Implants Used: 1. [employer] size 2 press fit CR femur 2. [employer] size 2 tibia 3. 29 mm patella 4. 10 mm CS polyethylene Brief History Operative Indications: [ (75 y/o female) ] with history of [right ] knee osteoarthrosis with radiographic findings with loss of joint space, osteophyte formation and subchondral sclerosis. Failed conservative measures as mentioned in the H&P. Discussion of total knee arthroplasty as well as risk and benefits were discussed with the patient including but not limited to blood loss, DVTs, PEs, neurovascular damage, general risk of anesthesia including loss of life, and stiffness or instability were also discussed with the patient. Patient demonstrated understanding and was able to sign informed consent. Procedure: On the date of procedure, patient's [right ] lower extremity was marked in the preoperative area. The patient was then taken back to the operating room where that patient was placed on the table in the supine position. All bony prominences were identified and well-padded. Anesthesia assumed control of the C-spine and airway throughout the remainder of the procedure. A tourniquet was placed on the [right ] upper thigh and the leg was prepped in a sterile fashion. The surgeon then scrubbed at this time. Upon reentering the room, the [right ] lower extremity was draped in a standard orthopedic fashion. A timeout was then called and everyone agreed upon the side, the site, the procedure to be performed, patient's identity and antibiotics given. Esmarch bandage was used to exsanguinate the extremity and the tourniquet was placed up to 250 mmHg with the knee in flexion. A midline skin incision was made and a sharp dissection was taken down through skin, subcutaneous tissue and fat. The standard medial parapatellar incision was made and the patella was subluxed laterally. An appropriate deep MCL release was done and the fat pad was resected. Our attention was then directed to the patella. The patella was everted and a flat resection was made. The knee was then flexed up and 2 femoral pins were placed inside the incision and 2 tibial pins were placed outside the incision in the medial tibia bicortically. Once this was completed, the 2 checkpoints in the femur and tibia were placed. Knee was then flexed up and the bony landmarks were registered. Once the was completed, the knee taken through range of motion and manually stressed allowing us to plan for an appropriate tibial cut. The robotic arm was brought into the field sterilely and checkpoint and saw were registered. Based on the patient's deformity, the tibial cut was made in [2 degrees varus ]. At this time, the tensioner was then placed in the joint and ligament tension was checked at 90 degrees and full extension. Based on the patient's ligamentous tension, appropriate adjustments were made to the operative plan and ligament releases were done. Once we were happy with our operative plan with balanced flexion and extension gaps, our attention was directed to the femur. The robot was brought into the field sterilely and registered. Posterior condylar cuts, anterior chamfer cuts and anterior cuts were appropriately made for a [size 2 ] femur. When these were completed, the saws were switched out in the distal femoral and posterior chamfer cuts were made. Protecting the soft tissue throughout this time. A [ size ] base plate was selected. The knee was flexed to 90 degrees and soft tissues and posterior osteophytes were removed from the joint. 40 cc of the periarticular injection was injected into the posterior medial corner of the joint. The appropriate trials were then placed on the femur and tibia. A trial polyethylene was trialed to ensure proper balancing and stability of the knee. The appropriate tibial internal rotation was then marked with a bovie. Our attention was then directed to the patella. The lug holes were drilled and the patella trial was placed. Patellar tracking was checked and deemed appropriate. Once we were happy, lug holes were drilled for the femur and trial components were removed. The tibia was subluxed and pinned into place and the keel was punched and drilled appropriately. Final components were verified and opened. The wound was copiously irrigated with normal saline. The components were impacted into place with the tibia, femur and finally the patella. The trial poly component was placed and the knee was placed in full extension. The tracking, alignment and balance were verified and a [10 mm CS ] polyethylene component was placed. Once the final components were placed an Irrisept lavage was performed and the wound was copiously irrigated with normal saline solution and the periarticular injection was given. the wound was closed in a layer-foster fashion using #1 vicryl interrupted sutures for the arthrotomy, 2-0 interrupted vicryl suture for the subcuticular layer and tatum for final skin closure. A sterile compressive dressing was then placed. The patient was then awakened from anesthesia, transferred to the [facility] and transferred to the PACU for recovery. My physician distribution center assistant was a vital part of this case. He was important in appropriate retraction during the case, and protection of soft tissues during bony cuts. His intimate knowledge of the case and my steps aided in safe and expedient completion of the procedure as well as appropriate position of the leg during the case. He was also vital in assisting with closure under my direct supervision. Due to the complexity of this case, robotic arm was used to assist in the surgery to improve accuracy and clinical outcomes. Post-op Plan: DVT ppx; ASA 81 mg BID, thigh high compression stockings Follow up: in office in 2 weeks for wound check PT: to start POD #0 at hospital, outpatient PT should be arranged. Preoperative antibiotic: Ancef 2 grams IV Kj Coker DO Surgeon: Kj Coker microcomputer technician: Doc Weiss Type of Anesthesia: Spinal Anesthesiologist: Loy Flores Specimen's removed: bone Estimated Blood Loss (mL): 20 cc Fluids Replaced: 1000 cc crystalloid Admit VTE Documentation VTE Present on Admission: No VTE Mechan Device Prophylaxis: SCD's and Thigh High WILL Hose VTE Pharm Prophylaxis ordered?: Yes
[2020-12-24] MEDS: Acetaminophen 500 MG Tablet 1000 MG PO ×2 (17:11→22:40)
--- NOTE | 2020-12-24 18:42 | NURSING ---
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
[2020-12-24] MEDS: proMETHazine 25 MG Tablet PO (18:45)
[2020-12-24] MEDS: Aspirin 81 MG TAB.CHEW PO (22:38)
[2020-12-24] MEDS: Metoprolol Tartrate 25 MG Tablet PO (22:39)
[2020-12-24] MEDS: Folic Acid 1 MG Tablet PO (22:39)
[2020-12-24] MEDS: Senna/Docusate Sodium 1 Tablet 2 TABLET PO (22:41)
[2020-12-24] MEDS: Cefazolin 1 GM/50 ML BAG IV (22:44)
[2020-12-25] VITALS (9 sets, daily range): BP systolic 89–129; BP diastolic 42–100; PULSE 65–83; RESP 16–18; TEMP 36.3–36.8; O2SAT 96–99
[2020-12-25] MEDS: Lactated Ringers 1,000 ML 125 ML IV ×2 (01:04→09:36)
[2020-12-25] MEDS: 0.9% Saline Lock 10 ML Syringe IV ×2 (02:39→02:45)
[2020-12-25 06:35] LABS: Hematocrit 31.2 % (37-47); Mean Corp Hgb Conc 32.1 g/dL (32-36); Mean Corpuscular Hgb 32.9 pg (27.0-32.0); Mean Corpuscular Volume 102.6 fL (81-99); Mean Platelet Vol. 9.6 fl (6.2-12.0); Platelet Count 212 K/mm3 (150-450); RBC Distribution Width CV 13.8 % (11.6-14.6); Red Blood Count 3.04 M/mm3 (4.2-5.4); White Blood Count 7.9 K/mm3 (4.4-11.0)
[2020-12-25] MEDS: Cefazolin 1 GM/50 ML BAG IV (06:48)
[2020-12-25] MEDS: Acetaminophen 500 MG Tablet 1000 MG PO (06:49)
[2020-12-25 07:11] LABS: Anion Gap 3 (5-15); BUN 17 mg/dL (7-18); BUN/Creat Ratio 28.6 RATIO (10-20); Chloride 112 mmol/L (98-107); EST Glomerular Filtration Rate 105 mL/min (>60); Est Glom Filt Rate - Afr Amer 127 mL/min (>60); Estimated Creatinine Clearance 43.79 ml/min; Glucose 98 mg/dL (74-106); Potassium 3.9 mmol/L (3.5-5.1); Sodium Level 143 mmol/L (136-145)
[2020-12-25] MEDS: oxyCODONE 5 MG Tablet PO (07:19)
[2020-12-25] MEDS: Ondansetron 4 MG/2 ML Vial IV (07:52)
--- NOTE | 2020-12-25 07:56 | PCM.PN.ORT ---
Objective Data Objective Data Patient sitting at bedside eating breakfast. Patient states her pain is been well managed. Patient states she is very sleepy. Patient denies chest pain, shortness of breath calf pain. Patient has no other complaints. Patient states she is ready for discharge home. Patient states she will be doing physical therapy at [facility] [place] Vital Signs: Vital Signs Temp Pulse Resp BP Pulse Ox 97.5 F L 66 18 129/100 H 99 12/25/20 06:52 12/25/20 06:52 12/25/20 06:52 12/25/20 06:52 12/25/20 06:52 Oxygen Flow Rate (L/min) 1 Oxygen Delivery Method Room Air Weight: 56.2 kg Body Mass Index (BMI) 25.0 Intake & Output: Intake and Output for Last 24 Hours 12/23/20 12/24/20 12/25/20 23:59 23:59 23:59 Intake Total 2116.83 / 2116.83 2254.17 / 2254.17 Output Total 900 / 900 500 / 500 Balance 1216.83 / 1216.83 1754.17 / 1754.17 Lab / Micro Data Result Diagrams: 12/25/20 06:29 12/25/20 06:29 Labs: Laboratory Results - last 24 hr 12/24/20 10:50: POC Glucose 110 12/25/20 06:29: WBC 7.9, RBC 3.04 L, Hgb 10.0 L, Hct 31.2 L, MCV 102.6 H, MCH 32.9 H, MCHC 32.1, RDW Std Deviation 52.0 H, RDW Coeff of Yung 13.8, Plt Count 212, MPV 9.6 12/25/20 06:29: Sodium 143, Potassium 3.9, Chloride 112 H, Carbon Dioxide 28.0, Anion Gap 3 L, BUN 17, Creatinine 0.60, Estim Creat Clear Calc 43.79, Est GFR (MDRD) Af Amer 127, Est GFR (MDRD) Non-Af 105, BUN/Creatinine Ratio 28.6 H, Glucose 98, Calcium 8.0 L Micro: Microbiology 12/17/20 12:02 Swab (Method) Nasal Screen MRSA/MSSA - Final Physical Exam Narrative Patient sitting comfortably in the exam chair. Patient alert, in no respiratory distress. Patient's dressing is clean dry intact. Patient had no calf pain. Patient was neurovascular otherwise intact. Vital signs and labs reviewed noted medical record. Const oriented x3 Eyes PERRL Neuro CN's II-XII intact bilaterally Psych mental status grossly normal Assessment & Plan Assessment/Plan (1) Status post total right knee replacement not using cement: PLAN: 1. Continue all pain medications as prescribed 2. Continue physical therapy, weight-bear as tolerated 3. Aspirin 81 mg 1 p.o. every 12 hours x30 days for postop DVT prophylaxis 4. Encourage incentive spirometry 5. Discharge home today after p.m. therapy 6. Follow-up as scheduled with Dr. Coker, see his pink sheet 7. Continue outpatient physical therapy at [facility] [place]
--- NOTE | 2020-12-25 08:00 | PCM.DC ---
Discharge Instructions Diet Discharge Diet: No restrictions Activity Discharge Activity: May Not Drive, May Shower and Use Walker May shower in (days): 3 May resume sexual activity in: No Restrictions Ice area for (Minutes): 30 (every hour while awake.) Weight Bearing Status: Weight bearing as tolerated Keep extremity elevated above heart level: Operative Extremity Dressing / Incision Call your doctor if your incision/area has: Continuous Slow Oozing, Sudden Increased Bleeding, Increased Pain/ Swelling, Increased Redness and Foul Smelling Discharge Call your doctor if you observe: Fever of 101 or Higher, Coldness, Increased Pain, Numbness or Tingling, Change in Color, Shortness of breath, Calf discomfort and Uncontrolled pain Change Dressing in: leave in place till F/U Remove Dressing in: leave in place till F/U Follow Up Care Please Follow Up With: Doc Weiss PA-C When: Please call [phone] to schedule a follow up appointment. Test Results: Test results from this visit will be discussed in further detail at your follow-up appointment, if applicable. Discharge Plan Admission Admit Date/Time: 12/24/20 18:51 Primary Reason for Your Visit: Right total knee replacement Attending Provider: Kj Coker Primary Care Provider: Juventino King Instructions Patient Instructions: ED Chest Pain, Noncardiac Discharge Orders/Prescriptions Prescriptions: New acetaminophen 500 mg Tablet 1,000 mg PO Q8 30 Days Qty: 180 RF: 0 oxycodone 5 mg Tablet 5 - 10 mg PO Q4H PRN PRN (Reason: Pain Score 4-10) 7 Days Qty: 84 RF: 0 Continued prednisone 5 mg tablet 5 mg PO DAILY PRN (Reason: Pain) RF: 0 methotrexate sodium 2.5 mg tablet 20 mg PO TU RF: 0 promethazine 25 mg tablet 25 mg PO Q6H PRN (Reason: motion sickness) Qty: 10 RF: 0 nitroglycerin 0.4 mg tablet, sublingual 0.4 mg SUBLINGUAL Q5-15M PRN (Reason: chest pain) Qty: 25 RF: 3 docusate sodium 100 mg capsule 100 mg PO DAILY PRN (Reason: Constipation) RF: 0 folic acid 0.8 mg capsule 0.8 mg PO BID RF: 0 aspirin 81 MG tablet 81 mg PO DAILY RF: 0 ashwin extract 250 mg Capsule 500 mg PO DAILY RF: 0 clopidogrel [Plavix] 75 mg tablet 75 mg PO DAILY RF: 0 rosuvastatin 20 mg tablet 20 mg PO DAILY Qty: 90 RF: 3 No Action turmeric 400 mg Capsule 400 mg PO DAILY RF: 0 metoprolol tartrate 25 mg tablet 25 mg PO BID Qty: 180 RF: 3 Referrals / Follow Up: Juventino King MD [Primary Care Provider] -
[2020-12-25] MEDS: Senna/Docusate Sodium 1 Tablet 2 TABLET PO (09:34)
[2020-12-25] MEDS: Clopidogrel Bisulfate 75 MG Tablet PO (09:34)
[2020-12-25] MEDS: Folic Acid 1 MG Tablet PO (09:34)
[2020-12-25] MEDS: Aspirin 81 MG TAB.CHEW PO (09:34)
[2020-12-25] MEDS: Methotrexate 2.5 MG Tablet 20 MG PO (09:36)
[2020-12-25] MEDS: Atorvastatin Calcium 40 MG Tablet PO (09:41)
[2020-12-25] MEDS: Lactated Ringers 1,000 ML 999 ML IV (10:08)
--- NOTE | 2020-12-25 11:00 | CASEMGMT ---
CHRISTA HAN Face to Face with patient for initial transition planning/care coordination assessment. RN CM introduced self and role at [facility]. Patient sitting in chair, alert and oriented. Patient willing to participate in assessment and is able to answer all questions appropriately. Care providers, pharmacy, and demographics verified. Patient wishes to discharge home and is setup with [facility] for outpatient therapy. Patient states she has no further needs or concerns at this time. CM to follow for discharge planning needs that may arise. PCP: Fernando Specialists: mario Coker; Festus, mink slicer; Wedrew, OFFICE AGENT Preferred Pharmacy: [facility] in [place] Insurance: [employer], [employer] Prescription Benefit: yes Living Will/HPOA: yes, Vladimir Charles HPOA LNOK: significant other Vladimir Living Arrangements: Patient lives with significant other in a 2 story home with bed and bath on first floor. 2 steps to enter the home. Patient states she was independent at home prior to surgery Transportation: self/Vladimir DME/HHC: Patient states she has shower chair, grab bars, walker, and rollator at home. Patient is setup with [facility] for outpatient therapy starting 12/28. Disposition Plan: Patient to discharge home with outpatient therapy, family support, and follow-up plans in place. Lauryn CALDWELL, RN, CM
--- NOTE | 2020-12-25 11:13 | NURSING ---
pt states i usually run high 90's -110 for SBP
--- NOTE | 2020-12-25 13:36 | PHA.DC.MC ---
Pharmacy Service has performed discharge medication reconciliation and counseling for this patient. 1. ACETAMINOPHEN 1000MG PO Q8H 2. OXYCODONE 5-10MG PO Q4H PRN PAIN The patient's discharge medication list was reviewed for discrepancies and discrepancies were resolved. Pt requested meds to beds. This [facility] spoke to retail and asked for delivery. Home Medications prednisone 5 mg tablet 5 mg PO DAILY PRN 02/16/18 aspirin 81 mg PO DAILY tab 03/06/18 promethazine 25 mg tablet 25 mg PO Q6H PRN #10 tab 06/28/18 nitroglycerin 0.4 mg sublingual tablet 0.4 mg SUBLINGUAL Q5-15M PRN #25 tab 02/24/19 docusate sodium 100 mg capsule 100 mg PO DAILY PRN cap 10/20/19 folic acid 0.8 mg capsule 0.8 mg PO BID cap 10/20/19 metoprolol tartrate 25 mg tablet 25 mg PO BID #180 tab 04/23/20 rosuvastatin 20 mg tablet 20 mg PO DAILY #90 tab 04/23/20 methotrexate sodium 2.5 mg tablet 20 mg PO TU tab 04/24/20 clopidogrel [Plavix] 75 mg PO DAILY 12/12/20 ashwin extract 500 mg PO DAILY 12/12/20 turmeric 400 mg PO DAILY 12/12/20 acetaminophen 1,000 mg PO Q8 30 Days #180 tab 12/25/20 oxycodone 5 - 10 mg PO Q4H PRN PRN 7 Days #84 tab 12/25/20 The patient was counseled on the following discharge medications and changes in medications for homegoing were reviewed. The Reason for Use, instructions for use, and potential side effects were reviewed for all new medications. The patient's questions regarding all of their medications were answered. The patient was able to verbally demonstrate an understanding of their discharge medications.
== END 2020-12-25 14:50 | disposition home or self-care (01) ==
LOC: MS3 22:04
PROVIDERS: Anesthesiology; Admitting Provider Orthopaedic Surgery; PCP Family Medicine; Referring Provider Orthopaedic Surgery; Visit Provider Orthopaedic Surgery
PROC: 0SRC0JZ Replacement of Right Knee Joint with Synthetic Substitute, Open Approach (ICD-10-PCS; CPT 27447; principal; 2020-12-24 13:00)
DX: M17.11 Unilateral primary osteoarthritis, right knee (principal); I25.10 Atherosclerotic heart disease of native coronary artery without angina pectoris; I48.91 Unspecified atrial fibrillation; M06.9 Rheumatoid arthritis, unspecified; E78.5 Hyperlipidemia, unspecified; Z79.899 Other long term (current) drug therapy; Z79.02 Long term (current) use of antithrombotics/antiplatelets; Z79.82 Long term (current) use of aspirin; Z79.52 Long term (current) use of systemic steroids
CPT/HCPCS: 01402; 27447; 64447; S2900; 36415; 80048; 82962; 83036; 83735; 85027; 87077; 87081; 88305; 88311; 96361; 96365; 96366; 96375; 97110; 97116; 97162; 97166; 97530; 97535; 99218; 99251; C1776; J7120; A4216; G0378; G0379; G0463; J2405; J3475; J8610

== ENCOUNTER → 2021-01-09 14:37 | Outpatient (CLI) | payer MEDICARE, OTHER, SELFPAY ==
[2018-03-05 11:27] VITALS: BMI 25.6
[2020-12-24 17:04] VITALS: BMI 25.0
[2021-01-09 15:20] LABS: Absolute Lymphocyte Count 2.42 X10^3/uL (0.83-4.51); Absolute Neutrophil Count 4.3 X10^3/uL (2.0-7.7); Basophil# 0.04 X10^3/uL; Basophil% 0.5 % (0-1); Eosinophil# 0.18 X10^3/uL; Eosinophils% 2.4 % (0-5); Hematocrit 31.7 % (37-47); Hemoglobin 10.2 g/dL (12.0-15.0); Lymphocyte # 2.42 X10^3/ul (0.83-4.51); Lymphocyte % 32.5 % (19-41); Mean Corp Hgb Conc 32.2 g/dL (32-36); Mean Corpuscular Hgb 32.1 pg (27.0-32.0); Mean Corpuscular Volume 99.7 fL (81-99); Mean Platelet Vol. 8.7 fl (6.2-12.0); Monocyte# 0.51 X10^3/uL; Monocyte% 6.9 % (0-10); NRBC Flagged by Analyzer 0 % (0-5); Neutrophil # 4.27 X10^3/uL (2.7-7.7); Neutrophil % 57.4 % (47-70); Platelet Count 665 K/mm3 (150-450); RBC Distribution Width CV 13.3 % (11.6-14.6); Red Blood Count 3.18 M/mm3 (4.2-5.4); White Blood Count 7.4 K/mm3 (4.4-11.0)
[2021-01-09 15:58] LABS: ALB/GLOB Ratio 0.8 RATIO (0.9-2.4); AST(SGOT) 24 U/L (15-37); Alanine Aminotransfer ALT/SGPT 21 U/L (13-56); Albumin, Serum 3.5 g/dL (3.2-5.0); Alkaline Phosphatase 102 U/L (45-117); Anion Gap 7 (5-15); BUN 27 mg/dL (7-18); Calcium,Total 9.1 mg/dL (8.5-10.1); Chloride 108 mmol/L (98-107); Creatinine, Serum 0.75 mg/dL (0.55-1.02); EST Glomerular Filtration Rate 80 mL/min (>60); Est Glom Filt Rate - Afr Amer 97 mL/min (>60); Globulin 4.2 g/dL (2.2-4.2); Glucose 100 mg/dL (74-106); Potassium 4.3 mmol/L (3.5-5.1); Protein, Total 7.7 g/dL (6.4-8.2); Sodium Level 140 mmol/L (136-145)
== END ==
PROVIDERS: PCP Family Medicine; Referring Provider Internal Medicine Rheumatology; Visit Provider Internal Medicine Rheumatology
DX: M06.00 Rheumatoid arthritis without rheumatoid factor, unspecified site (principal); M18.0 Bilateral primary osteoarthritis of first carpometacarpal joints; M35.7 Hypermobility syndrome; H81.03 Meniere's disease, bilateral; I48.0 Paroxysmal atrial fibrillation; I25.10 Atherosclerotic heart disease of native coronary artery without angina pectoris; E78.5 Hyperlipidemia, unspecified; Z79.899 Other long term (current) drug therapy
CPT/HCPCS: 36415; 80053; 85025

== ENCOUNTER 2021-02-13 07:30 | Day surgery (SDC) | payer MEDICARE, OTHER, SELFPAY ==
[2018-03-05 11:27] VITALS: BMI 25.6
--- NOTE | 2021-02-07 10:05 | RAD_ITS ---
INDICATION: Chest Pain EXAMINATION/TECHNIQUE: X-RAY - XR Chest 2 Views COMPARISON: None. FINDINGS: The lungs are clear. Tortuous and calcified thoracic aorta. The heart is not enlarged. No pleural effusion or pneumothorax. Degenerative changes of the thoracic spine and shoulders. RAD/Chest PA and Lateral IMPRESSION: No acute radiographic abnormalities. Electronically Signed: Doroteo Guzmán MD at 17:21 EDT Tel , Service support ,
[2021-02-07 11:04] LABS: Absolute Lymphocyte Count 1.66 X10^3/uL (0.83-4.51); Absolute Neutrophil Count 4.4 X10^3/uL (2.0-7.7); Basophil# 0.05 X10^3/uL; Basophil% 0.7 % (0-1); Eosinophil# 0.29 X10^3/uL; Eosinophils% 4.2 % (0-5); Hematocrit 34.7 % (37-47); Hemoglobin 10.8 g/dL (12.0-15.0); Lymphocyte # 1.66 X10^3/ul (0.83-4.51); Lymphocyte % 23.8 % (19-41); Mean Corp Hgb Conc 31.1 g/dL (32-36); Mean Corpuscular Hgb 32.4 pg (27.0-32.0); Mean Corpuscular Volume 104.2 fL (81-99); Mean Platelet Vol. 9.3 fl (6.2-12.0); Monocyte# 0.54 X10^3/uL; Monocyte% 7.7 % (0-10); NRBC Flagged by Analyzer 0 % (0-5); Neutrophil # 4.42 X10^3/uL (2.7-7.7); Neutrophil % 63.5 % (47-70); Platelet Count 353 K/mm3 (150-450); RBC Distribution Width CV 13.4 % (11.6-14.6); RBC Distribution Width SD 50.6 fl (35.1-43.9); Red Blood Count 3.33 M/mm3 (4.2-5.4)
[2021-02-07 11:14] LABS: International Normalized Ratio 1.1; Partial Thromboplast Time 27.8 Seconds (24.1-36.2); Prothrombin Time (Protime)PT. 13.1 SECONDS (11.7-14.9)
[2021-02-07 11:25] LABS: Anion Gap 5 (5-15); BUN 18 mg/dL (7-18); BUN/Creat Ratio 26.4 RATIO (10-20); Calcium,Total 8.8 mg/dL (8.5-10.1); Chloride 107 mmol/L (98-107); Creatinine, Serum 0.68 mg/dL (0.55-1.02); EST Glomerular Filtration Rate 89 mL/min (>60); Est Glom Filt Rate - Afr Amer 108 mL/min (>60); Glucose 89 mg/dL (74-106); Potassium 4.5 mmol/L (3.5-5.1); Sodium Level 139 mmol/L (136-145)
[2021-02-12 08:26] VITALS: BMI 24.4
--- NOTE | 2021-02-13 12:20 | CL.D_ITS ---
Patient Name: JIM MAN Study Date: 02/13/2021 Performing: Daniel Perry MD Ht: 59.05 inches 150 cm : 1945 Wt: 121.25 lbs 55 kg Age: 75 Gender: female BSA: 1.49 PROCEDURE(S) PERFORMED [id number]/COR/LV CLINICAL PROFILE AND INDICATIONS Indications: Worsening Angina Heart Failure: None Stress/Imaging Stress/Image Study Performed: No CAD Presentations: Unstable angina. CONCLUSIONS CAD as described. Preserved EF. No significant or MR RECOMMENDATIONS DESCRIPTION OF PROCEDURE The patient arrived to the procedure lab. The risks and benefits of the procedure as well as a full d escription of our services here and current unavailability of surgical backup were fully explained to the patient and/or their significant other prior to the catheterization. The Timeout was completed, verifying the correct patient and procedure. The patient's procedural site was prepped and draped in the usual fashion. Local anesthetic was given subcutaneously to right radial region with Lidocaine 2% . Using a modified Seldinger technique, arterial access was obtained via the right radial artery, a 6 Fr sheath was inserted. Left Coronary Artery selective angiography was performed in multiple views u sing a 5 Fr. JL3.5 catheter. Left Ventriculography was performed in ENCINAS projection using a 5 Fr. JR 4 .0. LV to AO pullback pressures were then recorded. Right Coronary Artery selective angiography was t hen performed in multiple views using a 5 Fr. JR 4 catheter.The arterial sheath was pulled and a TR Band was applied for hemostasis 12cc air inserted CORONARY ANGIOGRAPHY DOMINANCE: Right Dominant LEFT HEART ASSESSMENT Left Ventricular Ejection Fraction: by LV Gram 55 % Normal LV wall motion LEFT MAIN: Mild luminal irregularities LEFT ANTERIOR DESCENDING ARTERY: MID LAD: 50 % Stenosis DIAGONAL 1: Ostial - 60 % Stenosis CIRCUMFLEX ARTERY: Mild luminal irregularities RIGHT CORONARY ARTERY: Mild luminal irregularities VALVE FINDINGS: No Aortic Valve Stenosis No Mitral Insufficiency COMPLICATIONS No Complications PROCEDURE MEDICATIONS Fentanyl 50 mcg IV Versed 1 mg IV Oxygen: 2 L/min via nasal cannula Heparin given IA 02/13/2021 10:51:39 Verapamil 2.5mg, Ntg 100mcgs, 3000 units of Heparin given IA 02/13/2021 10:51:39 SUMMARY OF HEMODYNAMIC DATA Time AIR REST ECG 07:54:21 AO 89/41 (62) SA 10:55:32 LV 117/8, 16 11:00:39 LV 118/6, 19 11:00:45 LV 111/2, 19 11:02:04 LVp 118/8, 21 11:02:31 AOp 114/53 (78) 11:02:36 Signed By Daniel Perry MD On 02/13/2021 12:19:07 PM Daniel Perry MD
== END 2021-02-13 13:45 | disposition home or self-care (01) ==
LOC: CLSP 07:32
PROVIDERS: Nurse Practitioner Gerontology; PCP Family Medicine; Referring Provider Specialist; Visit Provider Specialist
DX: I25.10 Atherosclerotic heart disease of native coronary artery without angina pectoris (principal); E78.00 Pure hypercholesterolemia, unspecified; I48.0 Paroxysmal atrial fibrillation; M06.9 Rheumatoid arthritis, unspecified; Z79.02 Long term (current) use of antithrombotics/antiplatelets; Z79.899 Other long term (current) drug therapy; Z79.82 Long term (current) use of aspirin; Z98.61 Coronary angioplasty status
CPT/HCPCS: 36415; 71046; 80048; 85025; 85610; 85730; 93458; 99152; 99153; J7040; Q9967; C1769; C1894

== ENCOUNTER → 2021-04-08 09:34 | Outpatient (CLI) | payer MEDICARE, OTHER, SELFPAY ==
[2018-03-05 11:27] VITALS: BMI 25.6
[2021-04-08 12:20] LABS: Absolute Lymphocyte Count 1.49 X10^3/uL (0.83-4.51); Absolute Neutrophil Count 3.5 X10^3/uL (2.0-7.7); Basophil# 0.07 X10^3/uL; Basophil% 1.2 % (0-1); Eosinophil# 0.16 X10^3/uL; Eosinophils% 2.7 % (0-5); Hematocrit 35.8 % (37-47); Hemoglobin 11.7 g/dL (12.0-15.0); Lymphocyte # 1.49 X10^3/ul (0.83-4.51); Lymphocyte % 25.2 % (19-41); Mean Corp Hgb Conc 32.7 g/dL (32-36); Mean Corpuscular Hgb 32.7 pg (27.0-32.0); Mean Platelet Vol. 10.3 fl (6.2-12.0); Monocyte# 0.66 X10^3/uL; Monocyte% 11.1 % (0-10); NRBC Flagged by Analyzer 0 % (0-5); Neutrophil # 3.52 X10^3/uL (2.7-7.7); Neutrophil % 59.5 % (47-70); Platelet Count 309 K/mm3 (150-450); RBC Distribution Width CV 13.5 % (11.6-14.6); RBC Distribution Width SD 49.3 fl (35.1-43.9); Red Blood Count 3.58 M/mm3 (4.2-5.4); White Blood Count 5.9 K/mm3 (4.4-11.0)
[2021-04-08 12:31] LABS: AST(SGOT) 15 U/L (15-37); Alanine Aminotransfer ALT/SGPT 19 U/L (13-56); Albumin, Serum 3.6 g/dL (3.2-5.0); Alkaline Phosphatase 69 U/L (45-117); Anion Gap 4 (5-15); BUN 17 mg/dL (7-18); BUN/Creat Ratio 19.8 RATIO (10-20); Calcium,Total 8.8 mg/dL (8.5-10.1); Chloride 107 mmol/L (98-107); Creatinine, Serum 0.86 mg/dL (0.55-1.02); EST Glomerular Filtration Rate 68 mL/min (>60); Est Glom Filt Rate - Afr Amer 83 mL/min (>60); Globulin 3.7 g/dL (2.2-4.2); Glucose 93 mg/dL (74-106); Potassium 4.2 mmol/L (3.5-5.1); Protein, Total 7.3 g/dL (6.4-8.2); Sodium Level 140 mmol/L (136-145)
== END ==
PROVIDERS: PCP Family Medicine; Referring Provider Internal Medicine Rheumatology; Visit Provider Internal Medicine Rheumatology
DX: M06.00 Rheumatoid arthritis without rheumatoid factor, unspecified site (principal); M18.0 Bilateral primary osteoarthritis of first carpometacarpal joints; M35.7 Hypermobility syndrome; H81.03 Meniere's disease, bilateral; I48.0 Paroxysmal atrial fibrillation; I25.10 Atherosclerotic heart disease of native coronary artery without angina pectoris; E78.5 Hyperlipidemia, unspecified; Z79.899 Other long term (current) drug therapy
CPT/HCPCS: 36415; 80053; 85025

== ENCOUNTER 2021-07-25 08:15 | Outpatient (CLI) | payer MEDICARE, OTHER, SELFPAY ==
[2018-03-05 11:27] VITALS: BMI 25.6
--- NOTE | 2021-07-25 08:18 | BI_ITS ---
MAMMOGRAPHY - BILATERAL SCREENING REASON FOR EXAM: Female, 76 years old. Routine annual screening examination. PERTINENT HISTORY: Grandmother with breast cancer. TECHNIQUE: Digital bilateral breast estuardo (3D mammographic acquisition) in the CC and MLO projections. 2-D mediolateral oblique (MLO) and craniocaudad (CC) views of both breasts were obtained. CAD: Full Field Digital Mammography with Computer Added Detection was performed. COMPARISON: Comparison is made with prior study dated 12/23/2019. FINDINGS: Breast Composition: The breasts are heterogeneously dense, which may obscure small masses. There are no dominant masses or suspicious calcifications. Stable bilateral macrocalcifications. No other significant abnormalities are identified. Stable bilateral small benign-appearing axillary lymph nodes. BI/SCRN MAMM (CAD)W/ESTUARDO BILAT IMPRESSION: Stable bilateral screening mammogram. Yearly follow-up mammogram recommended. (A) ASSESSMENT CATEGORY: BIRADS Category 2: Benign. A letter regarding these results will be sent to the patient by the facility within 30 days. Approximately 10% of breast cancers are not detected by mammography. A normal mammogram should not delay biopsy of a clinically suspicious abnormality. [id number] Electronically Signed: Houston Jerome MD at 8:56 EST ,
--- NOTE | 2021-07-25 08:32 | BD_ITS ---
STUDY: DUAL ENERGY X-RAY ABSORPTIOMETRY / DXA REASON FOR EXAM: Female, 76 years old. M810. The patient is postmenopausal. TECHNIQUE: Bone Mineral Density (BMD) measurements of lumbar spine and bilateral hips were obtained. COMPARISON: None. FINDINGS: Lumbar Spine (L1-L4): g/cm2 (1.017) / T-score (-0.3) / Z-score (2.1) Findings are suggestive of normal bone density with a low fracture risk. Left Femur Total: g/cm2 (0.719) / T-score (-1.8) / Z-score (0.0) Left Femoral Neck: g/cm2 (0.504) / T-score (-3.1) / Z-score (-1.0) Right Femur Total: g/cm2 (0.660) / T-score (-2.3) / Z-score (-0.5) Right Femoral Neck: g/cm2 (0.506) / T-score (-3.1) / Z-score (-1.0) BD/Dexa Bone Density Study IMPRESSION: The patient is considered osteoporotic as outlined below according to World [employer] Organization (WHO) criteria with a high fracture risk. Reference Information: The T-score is the number of standard deviations above or below the standard which is normal for young adults at their peak bone mineral density. The World Health Organization (WHO) interprets the T-scores as follows: Above -1 Normal bone density Between -1 and -2.5 Osteopenia Equal to / or below -2.5 Osteoporosis As a practical clinical guideline, osteopenia may be graded as follows: Mild -1 through -1.5 Moderate -1.6 through -2.0 Severe -2.1 through -2.4 The Z-score is the number of standard deviations above or below age-matched controls. A Z-score of less than -1.5 would be considered abnormal. References: 1. NIH Osteoporosis and Related Bone Diseases www osteo.org 2. International Society for Clinical Densitometry www iscd.org 3. National Osteoporosis Foundation www nof.org Electronically Signed: Houston Jerome MD at 10:50 EST ,
== END 2021-07-25 23:59 | disposition home or self-care (01) ==
LOC: OPBI 08:16
PROVIDERS: PCP Family Medicine; Referring Provider Nurse Practitioner Family; Visit Provider Nurse Practitioner Family
DX: Z12.31 Encounter for screening mammogram for malignant neoplasm of breast (principal); M81.0 Age-related osteoporosis without current pathological fracture
CPT/HCPCS: 77063; 77067; 77080

== ENCOUNTER → 2021-12-09 | Outpatient (CLI) | payer MEDICARE, OTHER, SELFPAY ==
[2018-03-05 11:27] VITALS: BMI 25.6
[2021-12-09 15:14] LABS: Absolute Lymphocyte Count 2.25 X10^3/uL (0.83-4.51); Absolute Neutrophil Count 3.4 X10^3/uL (2.0-7.7); Basophil# 0.04 X10^3/uL; Basophil% 0.6 % (0-1); Eosinophils% 1.6 % (0-5); Hematocrit 37.2 % (37-47); Hemoglobin 12.4 g/dL (12.0-15.0); Lymphocyte # 2.25 X10^3/ul (0.83-4.51); Lymphocyte % 35.4 % (19-41); Mean Corp Hgb Conc 33.3 g/dL (32-36); Mean Corpuscular Hgb 33.1 pg (27.0-32.0); Mean Corpuscular Volume 99.2 fL (81-99); Mean Platelet Vol. 10.4 fl (6.2-12.0); Monocyte# 0.58 X10^3/uL; Monocyte% 9.1 % (0-10); NRBC Flagged by Analyzer 0 % (0-5); Neutrophil # 3.36 X10^3/uL (2.7-7.7); Platelet Count 313 K/mm3 (150-450); RBC Distribution Width CV 14.1 % (11.6-14.6); RBC Distribution Width SD 50.1 fl (35.1-43.9); Red Blood Count 3.75 M/mm3 (4.2-5.4); White Blood Count 6.4 K/mm3 (4.4-11.0)
[2021-12-09 15:48] LABS: AST(SGOT) 20 U/L (15-37); Alanine Aminotransfer ALT/SGPT 22 U/L (13-56); Albumin, Serum 3.8 g/dL (3.2-5.0); Alkaline Phosphatase 72 U/L (45-117); Anion Gap 4 (5-15); BUN 21 mg/dL (7-18); BUN/Creat Ratio 21.3 RATIO (10-20); Chloride 108 mmol/L (98-107); Creatinine, Serum 0.98 mg/dL (0.55-1.02); EST Glomerular Filtration Rate 58 mL/min (>60); Est Glom Filt Rate - Afr Amer 71 mL/min (>60); Globulin 3.7 g/dL (2.2-4.2); Glucose 87 mg/dL (74-106); Potassium 4.1 mmol/L (3.5-5.1); Protein, Total 7.5 g/dL (6.4-8.2); Sodium Level 141 mmol/L (136-145)
== END | disposition home or self-care (01) ==
LOC: LAB 13:47
PROVIDERS: PCP Nurse Practitioner Family; Referring Provider Internal Medicine Rheumatology; Visit Provider Internal Medicine Rheumatology
DX: M06.00 Rheumatoid arthritis without rheumatoid factor, unspecified site (principal); I48.0 Paroxysmal atrial fibrillation; M18.0 Bilateral primary osteoarthritis of first carpometacarpal joints; M35.7 Hypermobility syndrome; H81.03 Meniere's disease, bilateral; I25.10 Atherosclerotic heart disease of native coronary artery without angina pectoris; E78.5 Hyperlipidemia, unspecified; Z79.899 Other long term (current) drug therapy
CPT/HCPCS: 36415; 80053; 85025

== ENCOUNTER → 2022-04-07 | Outpatient (CLI) | payer MEDICARE, OTHER, SELFPAY ==
[2018-03-05 11:27] VITALS: BMI 25.6
[2022-04-07 11:17] LABS: Absolute Neutrophil Count 4.3 X10^3/uL (2.0-7.7); Basophil# 0.01 X10^3/uL; Basophil% 0.2 % (0-1); Eosinophil# 0.02 X10^3/uL; Eosinophils% 0.3 % (0-5); Hematocrit 36.2 % (37-47); Lymphocyte % 27.2 % (19-41); Mean Corp Hgb Conc 33.1 g/dL (32-36); Mean Corpuscular Hgb 31.5 pg (27.0-32.0); Mean Platelet Vol. 10.3 fl (6.2-12.0); Monocyte# 0.18 X10^3/uL; Monocyte% 2.9 % (0-10); NRBC Flagged by Analyzer 0 % (0-5); Neutrophil % 68.9 % (47-70); Platelet Count 267 K/mm3 (150-450); RBC Distribution Width CV 13.4 % (11.6-14.6); RBC Distribution Width SD 46.9 fl (35.1-43.9); Red Blood Count 3.81 M/mm3 (4.2-5.4); White Blood Count 6.2 K/mm3 (4.4-11.0)
[2022-04-07 13:15] LABS: ALB/GLOB Ratio 1.1 RATIO (0.9-2.4); AST(SGOT) 12 U/L (15-37); Alanine Aminotransfer ALT/SGPT 18 U/L (13-56); Albumin, Serum 3.5 g/dL (3.2-5.0); Alkaline Phosphatase 56 U/L (45-117); Anion Gap 4 (5-15); BUN 14 mg/dL (7-18); BUN/Creat Ratio 20.4 RATIO (10-20); Calcium,Total 8.6 mg/dL (8.5-10.1); Chloride 108 mmol/L (98-107); Creatinine, Serum 0.68 mg/dL (0.55-1.02); EST Glomerular Filtration Rate 89 mL/min (>60); Est Glom Filt Rate - Afr Amer 107 mL/min (>60); Globulin 3.1 g/dL (2.2-4.2); Glucose 99 mg/dL (74-106); Potassium 3.9 mmol/L (3.5-5.1); Protein, Total 6.6 g/dL (6.4-8.2); Sodium Level 139 mmol/L (136-145)
== END | disposition home or self-care (01) ==
LOC: LAB 10:18
PROVIDERS: PCP Nurse Practitioner Family; Referring Provider Internal Medicine Rheumatology; Visit Provider Internal Medicine Rheumatology
DX: M06.00 Rheumatoid arthritis without rheumatoid factor, unspecified site (principal); I48.0 Paroxysmal atrial fibrillation; M18.0 Bilateral primary osteoarthritis of first carpometacarpal joints; M35.7 Hypermobility syndrome; H81.03 Meniere's disease, bilateral; I25.10 Atherosclerotic heart disease of native coronary artery without angina pectoris; E78.5 Hyperlipidemia, unspecified; Z79.899 Other long term (current) drug therapy
CPT/HCPCS: 36415; 80053; 85025

== ENCOUNTER → 2022-11-03 | Outpatient (CLI) | payer MEDICARE, OTHER, SELFPAY ==
[2018-03-05 11:27] VITALS: BMI 25.6
[2022-11-03 10:59] LABS: Absolute Lymphocyte Count 2.12 X10^3/uL (0.83-4.51); Absolute Neutrophil Count 2.5 X10^3/uL (2.0-7.7); Basophil# 0.09 X10^3/uL; Basophil% 1.7 % (0-1); Eosinophil# 0.23 X10^3/uL; Eosinophils% 4.3 % (0-5); Hematocrit 39.6 % (37-47); Hemoglobin 13.3 g/dL (12.0-15.0); Lymphocyte # 2.12 X10^3/ul (0.83-4.51); Lymphocyte % 39.3 % (19-41); Mean Corp Hgb Conc 33.6 g/dL (32-36); Mean Corpuscular Hgb 31.5 pg (27.0-32.0); Mean Corpuscular Volume 93.8 fL (81-99); Mean Platelet Vol. 9.5 fl (6.2-12.0); Monocyte# 0.48 X10^3/uL; Monocyte% 8.9 % (0-10); NRBC Flagged by Analyzer 0 % (0-5); Neutrophil # 2.46 X10^3/uL (2.7-7.7); Neutrophil % 45.4 % (47-70); Platelet Count 321 K/mm3 (150-450); RBC Distribution Width CV 13.8 % (11.6-14.6); Red Blood Count 4.22 M/mm3 (4.2-5.4); White Blood Count 5.4 K/mm3 (4.4-11.0)
[2022-11-03 11:50] LABS: ALB/GLOB Ratio 0.9 RATIO (0.9-2.4); AST(SGOT) 19 U/L (15-37); Alanine Aminotransfer ALT/SGPT 21 U/L (13-56); Albumin, Serum 3.7 g/dL (3.2-5.0); Alkaline Phosphatase 84 U/L (45-117); Anion Gap 6 (5-15); BUN 21 mg/dL (7-18); BUN/Creat Ratio 30.3 RATIO (10-20); Calcium,Total 9.1 mg/dL (8.5-10.1); Chloride 109 mmol/L (98-107); Creatinine, Serum 0.69 mg/dL (0.55-1.02); EST Glomerular Filtration Rate 87 mL/min (>60); Est Glom Filt Rate - Afr Amer 106 mL/min (>60); Glucose 102 mg/dL (74-106); Potassium 4.4 mmol/L (3.5-5.1); Protein, Total 7.7 g/dL (6.4-8.2); Sodium Level 142 mmol/L (136-145)
== END | disposition home or self-care (01) ==
LOC: LAB 10:25
PROVIDERS: PCP Nurse Practitioner Family; Referring Provider Internal Medicine Rheumatology; Visit Provider Internal Medicine Rheumatology
DX: M06.00 Rheumatoid arthritis without rheumatoid factor, unspecified site (principal); I48.0 Paroxysmal atrial fibrillation; Z79.899 Other long term (current) drug therapy; M18.0 Bilateral primary osteoarthritis of first carpometacarpal joints; M35.7 Hypermobility syndrome; H81.03 Meniere's disease, bilateral; I25.10 Atherosclerotic heart disease of native coronary artery without angina pectoris; E78.5 Hyperlipidemia, unspecified
CPT/HCPCS: 36415; 80053; 85025

== ENCOUNTER → 2022-11-06 | Outpatient (CLI) | payer MEDICARE, OTHER, SELFPAY ==
[2018-03-05 11:27] VITALS: BMI 25.6
[2022-11-06 16:48] LABS: Cholesterol 247 mg/dL (200); High Density Lipoprotein 57 mg/dL; Triglycerides 264 mg/dL; Very Low Density Lipoprotein 53 mg/dL (5-40)
== END | disposition home or self-care (01) ==
LOC: LAB 15:20
PROVIDERS: PCP Nurse Practitioner Family; Referring Provider Physician Assistant Medical; Visit Provider Physician Assistant Medical
DX: E78.00 Pure hypercholesterolemia, unspecified (principal)
CPT/HCPCS: 36415; 80061

== ENCOUNTER → 2022-12-17 | Outpatient (CLI) | payer MEDICARE, OTHER, SELFPAY ==
[2018-03-05 11:27] VITALS: BMI 25.6
--- NOTE | 2022-12-17 15:22 | US_ITS ---
EXAM: US SOFT TISSUES OF THE NECK CLINICAL INDICATION: MASS TECHNIQUE: Real-time ultrasound scan of the soft tissues of the neck with image documentation. COMPARISON: No relevant prior studies available. FINDINGS: SOFT TISSUES: Images are obtained in the region of palpable abnormality in the left submandibular region. The left submandibular gland measures 2.9 x 3.9 x 1.4 cm. The right submandibular gland measures 3.0 x 4.1 x 1.3 cm. No abscess. No foreign body. LYMPH NODES: There are cluster of hypoechoic structures in the left submandibular region of the lymph nodes largest measuring 1.1 x 0.7 x 0.6 cm. There are lymph nodes in the right neck the largest measuring 1.0 x 1.3 x 0.4 cm. The left lateral neck there is a lymph node that measures 1.6 x 0.5 x 1.2 cm. There is a second lymph node in the lateral neck that measures 0.6 x 0.4 x 0.6 cm. US/Head/Neck Soft Tissue IMPRESSION: Cluster of lymph nodes in the left submandibular region in the region of palpable abnormality that may be reactive or inflammatory. The submandibular glands are unremarkable. If indicated further evaluation with CT scan may be beneficial. Electronically Signed: Gregg Sue MD at 0:17 EDT ,
== END | disposition home or self-care (01) ==
LOC: US 15:20
PROVIDERS: PCP Family Medicine; Referring Provider Family Medicine; Visit Provider Family Medicine
DX: R22.1 Localized swelling, mass and lump, neck (principal)
CPT/HCPCS: 76536

== ENCOUNTER → 2023-01-08 | Outpatient (CLI) | payer MEDICARE, OTHER, SELFPAY ==
[2018-03-05 11:27] VITALS: BMI 25.6
--- NOTE | 2023-01-08 18:50 | CT_ITS ---
INDICATION: Neck mass EXAMINATION: CT NECK WITH CONTRAST - CT Soft Tissue Neck W/ Contrast Injection TECHNIQUE: Helically acquired images were obtained of the neck following IV contrast. A radiation dose optimization technique was used for this scan. IV Contrast dosage and agent: 75 mL [id number]-370 RADIATION DOSAGE (If Supplied By Facility): CTDIvol = ( 10.59 ) mGy, DLP = ( 322.77 ) mGycm COMPARISON: 12/17/2022 ultrasound FINDINGS: NASOPHARYNX: Unremarkable. SUPRAHYOID NECK: Unremarkable oropharynx, oral cavity, parapharyngeal space, and retropharyngeal space. INFRAHYOID NECK: Unremarkable larynx, hypopharynx, and supraglottis. THYROID: No focal lesions. SALIVARY GLANDS: Unremarkable. LYMPH NODES: No cervical or supraclavicular lymphadenopathy. Left submandibular small cluster of lymph nodes redemonstrated, none of which are enlarged. VASCULAR STRUCTURES: Unremarkable. VISUALIZED PORTIONS OF THE ORBITS, PARANASAL SINUSES, MASTOID AIR CELLS AND SKULL BASE: Bilateral ocular lens replacements. Left maxillary sinus mucosal thickening with effusion. BONES: Cervical spine degenerative change. THORACIC INLET: Clear lung apices. CT/Soft Tissue Neck WITH Contrast IMPRESSION: Small cluster of left submandibular lymph nodes redemonstrated. None are pathologically enlarged. Electronically Signed: Perry Calvin MD at 16:45 EDT ,
[2023-01-08 19:14] LABS: CREATININE FINGERSTICK 1.2 mg/dL (0.55-1.02)
== END | disposition home or self-care (01) ==
PROVIDERS: PCP Family Medicine; Referring Provider Family Medicine; Visit Provider Family Medicine
DX: R22.1 Localized swelling, mass and lump, neck (principal)
CPT/HCPCS: 70491; Q9967

== ENCOUNTER → 2023-01-19 | Outpatient (CLI) | payer MEDICARE, OTHER, SELFPAY ==
[2018-03-05 11:27] VITALS: BMI 25.6
[2023-01-19 10:40] LABS: Absolute Lymphocyte Count 1.52 X10^3/uL (0.83-4.51); Absolute Neutrophil Count 2.6 X10^3/uL (2.0-7.7); Basophil# 0.05 X10^3/uL; Eosinophil# 0.15 X10^3/uL; Eosinophils% 3.1 % (0-5); Hematocrit 38.1 % (37-47); Hemoglobin 12.8 g/dL (12.0-15.0); Lymphocyte # 1.52 X10^3/ul (0.83-4.51); Mean Corp Hgb Conc 33.6 g/dL (32-36); Mean Corpuscular Hgb 32.6 pg (27.0-32.0); Mean Corpuscular Volume 96.9 fL (81-99); Mean Platelet Vol. 9.4 fl (6.2-12.0); Monocyte# 0.58 X10^3/uL; Monocyte% 11.8 % (0-10); NRBC Flagged by Analyzer 0 % (0-5); Neutrophil # 2.58 X10^3/uL (2.7-7.7); Neutrophil % 52.7 % (47-70); Platelet Count 278 K/mm3 (150-450); RBC Distribution Width CV 13.4 % (11.6-14.6); Red Blood Count 3.93 M/mm3 (4.2-5.4); White Blood Count 4.9 K/mm3 (4.4-11.0)
[2023-01-19 11:08] LABS: AST(SGOT) 16 U/L (15-37); Alanine Aminotransfer ALT/SGPT 19 U/L (13-56); Albumin, Serum 3.7 g/dL (3.2-5.0); Alkaline Phosphatase 69 U/L (45-117); Anion Gap 5 (5-15); BUN 24 mg/dL (7-18); BUN/Creat Ratio 22.2 RATIO (10-20); Calcium,Total 8.9 mg/dL (8.5-10.1); Chloride 109 mmol/L (98-107); Creatinine, Serum 1.08 mg/dL (0.55-1.02); EST Glomerular Filtration Rate 52 mL/min (>60); Est Glom Filt Rate - Afr Amer 63 mL/min (>60); Globulin 3.8 g/dL (2.2-4.2); Glucose 78 mg/dL (74-106); Potassium 4.4 mmol/L (3.5-5.1); Protein, Total 7.5 g/dL (6.4-8.2); Sodium Level 139 mmol/L (136-145)
== END | disposition home or self-care (01) ==
LOC: LAB 10:06
PROVIDERS: PCP Family Medicine; Referring Provider Internal Medicine Rheumatology; Visit Provider Internal Medicine Rheumatology
DX: M06.00 Rheumatoid arthritis without rheumatoid factor, unspecified site (principal); Z79.899 Other long term (current) drug therapy
CPT/HCPCS: 36415; 80053; 85025

== ENCOUNTER → 2023-04-11 | Outpatient (CLI) | payer MEDICARE, OTHER, SELFPAY ==
[2018-03-05 11:27] VITALS: BMI 25.6
[2023-04-11 10:33] LABS: Absolute Lymphocyte Count 1.74 X10^3/uL (0.83-4.51); Absolute Neutrophil Count 3.4 X10^3/uL (2.0-7.7); Basophil# 0.04 X10^3/uL; Basophil% 0.7 % (0-1); Eosinophils% 3.5 % (0-5); Hematocrit 36.6 % (37-47); Lymphocyte # 1.74 X10^3/ul (0.83-4.51); Lymphocyte % 30.2 % (19-41); Mean Corp Hgb Conc 32.8 g/dL (32-36); Mean Corpuscular Hgb 32.4 pg (27.0-32.0); Mean Corpuscular Volume 98.9 fL (81-99); Mean Platelet Vol. 9.4 fl (6.2-12.0); Monocyte# 0.36 X10^3/uL; Monocyte% 6.3 % (0-10); NRBC Flagged by Analyzer 0 % (0-5); Platelet Count 214 K/mm3 (150-450); RBC Distribution Width CV 12.9 % (11.6-14.6); RBC Distribution Width SD 45.8 fl (35.1-43.9); White Blood Count 5.8 K/mm3 (4.4-11.0)
[2023-04-11 11:10] LABS: ALB/GLOB Ratio 0.9 RATIO (0.9-2.4); AST(SGOT) 17 U/L (15-37); Alanine Aminotransfer ALT/SGPT 25 U/L (13-56); Albumin, Serum 3.4 g/dL (3.2-5.0); Alkaline Phosphatase 65 U/L (45-117); Anion Gap 1 (5-15); BUN 12 mg/dL (7-18); BUN/Creat Ratio 14.9 RATIO (10-20); Calcium,Total 8.5 mg/dL (8.5-10.1); Chloride 108 mmol/L (98-107); Creatinine, Serum 0.81 mg/dL (0.55-1.02); EST Glomerular Filtration Rate 73 mL/min (>60); Est Glom Filt Rate - Afr Amer 89 mL/min (>60); Globulin 3.6 g/dL (2.2-4.2); Glucose 100 mg/dL (74-106); Potassium 4.4 mmol/L (3.5-5.1); Sodium Level 135 mmol/L (136-145); Thyroid Stim Hormone (TSH) 1.07 uIU/mL (0.358-3.74)
== END | disposition home or self-care (01) ==
LOC: LAB 10:02
PROVIDERS: PCP Family Medicine; Referring Provider Internal Medicine Rheumatology; Visit Provider Internal Medicine Rheumatology
DX: M06.00 Rheumatoid arthritis without rheumatoid factor, unspecified site (principal); M18.0 Bilateral primary osteoarthritis of first carpometacarpal joints; Z79.899 Other long term (current) drug therapy
CPT/HCPCS: 36415; 80053; 84443; 85025

== ENCOUNTER → 2023-05-05 | Outpatient (CLI) | payer MEDICARE, OTHER, SELFPAY ==
[2018-03-05 11:27] VITALS: BMI 25.6
--- NOTE | 2023-05-05 06:22 | ECHOD_ITS ---
Reason For Study: CHEST PAIN Procedure This was a 2D Doppler, Color Flow transthoracic echocardiogram. Exam performed in department. Left Ventricle Normal LV size. Left ventricular systolic function is normal. The estimated ejection fraction is 65 %. Stage 1 diastolic dysfunction. No regional wall motion abnormalities noted. Right Ventricle Normal right ventricle. Normal systolic function. Atria Normal left atrium. Normal right atrium. Mitral Valve Bileaflet diffuse mitral valve thickening. Mild (1+) eccentric mitral valve insufficiency. Tricuspid Valve Normal tricuspid valve. Aortic Valve Trisinus/trileaflet aortic valve. Mild focal aortic valve calcification. Pulmonic Valve Normal pulmonic valve. Great Vessels Normal aortic root. The pulmonary artery is normal size. Normal inferior vena cava. Pericardium/Pleural No pericardial effusion. MMode/2D Measurements & Calculations LVIDd: 4.2 cm IVSd: 1.1 cm Ao root diam: 2.6 cm LVIDs: 2.2 cm LVPWd: 0.84 cm RVDd: 2.6 cm FS: 46.5 % LAV(MOD-bp): 47.0 ml LVAd ap4: 18.8 cm2 SV(MOD-sp4): 31.3 ml LAV(MOD-bp) Indexed: 31.5 ml/m2 LVLd ap4: 6.3 cm LAV(MOD-sp2): 48.1 ml EDV(MOD-sp4): 47.7 ml LAV(MOD-sp4): 44.1 ml EDV(sp4-el): 47.6 ml LVAs ap4: 10.2 cm2 LVLs ap4: 5.5 cm ESV(MOD-sp4): 16.4 ml ESV(sp4-el): 16.0 ml EF(MOD-sp4): 65.7 % EF(sp4-el): 66.3 % SV(sp4-el): 31.6 ml LA A4 area: 15.9 cm2 LA dimension(2D): 3.3 cm RA A4 area: 11.0 cm2 TAPSE: 1.7 cm Time Measurements MV dec time: 0.16 sec Doppler Measurements & Calculations MV E max thierry: 79.2 cm/sec Lat Peak E' Thierry: 9.8 cm/sec Med Peak E' Thierry: 6.2 cm/sec MV A max thierry: 103.6 cm/sec E/E' lat: 8.0 E/E' med: 12.8 MV E/A: 0.76 MV V2 max: 104.9 cm/sec Ao V2 max: 146.6 cm/sec MV max P.4 mmHg MV dec slope: 499.7 cm/sec2 Ao max P.6 mmHg MV V2 mean: 62.0 cm/sec Ao V2 mean: 95.9 cm/sec MV mean P.8 mmHg Ao mean P.3 mmHg MV V2 VTI: 37.6 cm Ao V2 VTI: 34.9 cm AV (velocity ratio): 0.73 LV V1 max: 116.2 cm/sec PA V2 max: 111.1 cm/sec LV V1 max P.4 mmHg PA V2 mean: 70.2 cm/sec LV V1 mean P.6 mmHg LV V1 mean: 74.2 cm/sec LV V1 VTI: 25.6 cm ECHO/Echo Complete Interpretation Summary Normal LV size. Left ventricular systolic function is normal. The estimated ejection fraction is 65 %. Stage 1 diastolic dysfunction. Structurally normal valves. Ordering Physician: Sharla Mayorga Referring Physician: Sharla Mayorga Performed By: Steph Santos RCS
--- NOTE | 2023-05-05 17:52 | STRESSREP ---
Stress Test Report Exercise myocardial perfusion stress test. 77-year-old lady with a history of chest pain Stress protocol: Resting EKG demonstrates normal sinus rhythm with a rate of 61 bpm resting blood pressure is 124/78 mmHg. The patient exercised according to the regular Margarito protocol for a total duration of 6 minutes attaining a maximum heart rate of 129 bpm which was 89% of maximum predicted heart rate; the maximum workload was 7 metabolic equivalents. At rest there were no ST or T wave changes noted to suggest ischemia and at peak exercise upsloping ST changes only were noted which did not meet the criteria for ischemia. No clinical angina was noted the test was terminated due to the target heart rate being achieved/fatigue. The peak blood pressure was 174/78 mmHg. Rate-pressure product was 20,500. Myocardial perfusion protocol. 11.6 mCi of technetium 99m sestamibi was injected at rest. The patient exercised according to regular Margarito protocol for total duration of 6 minutes and at peak exercise 33.5 mCi of technetium 99m sestamibi was injected stress images were obtained stress and rest images were reconstructed in comparing the short axis vertical long and horizontal long axis. Gated images were also obtained. Perfusion SPECT analysis: Review of the stress images demonstrate normal uptake of tracer noted in all areas of the myocardium. The resting images similarly demonstrate normal uptake of tracer noted in all areas of the myocardium. No areas of reversibility are noted to suggest ischemia no previous infarct was noted. Gated SPECT analysis: The gated ejection fraction is 88%. Conclusion: Normal exercise myocardial perfusion stress test at a moderate workload Preserved ejection fraction.
== END | disposition home or self-care (01) ==
LOC: CVS 06:22
PROVIDERS: PCP Family Medicine; Referring Provider Physician Assistant Medical; Visit Provider Physician Assistant Medical
DX: I48.0 Paroxysmal atrial fibrillation (principal); R07.9 Chest pain, unspecified; Z95.5 Presence of coronary angioplasty implant and graft
CPT/HCPCS: 78452; 93017; 93306; A9500; A4216

== ENCOUNTER → 2023-05-16 | Outpatient (CLI) | payer MEDICARE, OTHER, SELFPAY ==
[2018-03-05 11:27] VITALS: BMI 25.6
[2023-05-16 10:45] LABS: AST(SGOT) 16 U/L (15-37); Alanine Aminotransfer ALT/SGPT 18 U/L (13-56); Albumin, Serum 3.6 g/dL (3.2-5.0); Alkaline Phosphatase 65 U/L (45-117); Bilirubin, Direct 0.14 mg/dL (0.00-0.30); Cholesterol 173 mg/dL (200); Globulin 3.5 g/dL (2.2-4.2); High Density Lipoprotein 64 mg/dL; Protein, Total 7.1 g/dL (6.4-8.2); Triglycerides 119 mg/dL; Very Low Density Lipoprotein 24 mg/dL (5-40)
== END | disposition home or self-care (01) ==
LOC: LAB 09:38
PROVIDERS: PCP Family Medicine; Referring Provider Physician Assistant Medical; Visit Provider Physician Assistant Medical
DX: E78.00 Pure hypercholesterolemia, unspecified (principal)
CPT/HCPCS: 36415; 80061; 80076

== ENCOUNTER → 2023-09-28 | Outpatient (CLI) | payer MEDICARE, OTHER, SELFPAY ==
[2018-03-05 11:27] VITALS: BMI 25.6
[2023-09-28 15:46] LABS: Absolute Lymphocyte Count 2.53 X10^3/uL (0.83-4.51); Absolute Neutrophil Count 2.6 X10^3/uL (2.0-7.7); Basophil# 0.06 X10^3/uL; Eosinophil# 0.19 X10^3/uL; Eosinophils% 3.2 % (0-5); Hematocrit 35.3 % (37-47); Hemoglobin 11.6 g/dL (12.0-15.0); Lymphocyte # 2.53 X10^3/ul (0.83-4.51); Mean Corp Hgb Conc 32.9 g/dL (32-36); Mean Corpuscular Hgb 31.2 pg (27.0-32.0); Mean Corpuscular Volume 94.9 fL (81-99); Mean Platelet Vol. 10.2 fl (6.2-12.0); Monocyte# 0.46 X10^3/uL; Monocyte% 7.8 % (0-10); NRBC Flagged by Analyzer 0 % (0-5); Neutrophil # 2.63 X10^3/uL (2.7-7.7); Neutrophil % 44.8 % (47-70); Platelet Count 266 K/mm3 (150-450); RBC Distribution Width CV 12.4 % (11.6-14.6); RBC Distribution Width SD 42.9 fl (35.1-43.9); Red Blood Count 3.72 M/mm3 (4.2-5.4); White Blood Count 5.9 K/mm3 (4.4-11.0)
[2023-09-28 16:24] LABS: ALB/GLOB Ratio 1.1 RATIO (0.9-2.4); AST(SGOT) 26 U/L (15-37); Alanine Aminotransfer ALT/SGPT 22 U/L (13-56); Albumin, Serum 3.9 g/dL (3.2-5.0); Alkaline Phosphatase 76 U/L (45-117); Anion Gap 5 (5-15); BUN 19 mg/dL (7-18); BUN/Creat Ratio 21.2 RATIO (10-20); Chloride 108 mmol/L (98-107); EST Glomerular Filtration Rate 65 mL/min (>60); Est Glom Filt Rate - Afr Amer 78 mL/min (>60); Globulin 3.4 g/dL (2.2-4.2); Glucose 96 mg/dL (74-106); Protein, Total 7.3 g/dL (6.4-8.2); Sodium Level 140 mmol/L (136-145)
== END | disposition home or self-care (01) ==
PROVIDERS: PCP Family Medicine; Referring Provider Internal Medicine Rheumatology; Visit Provider Internal Medicine Rheumatology
DX: M06.00 Rheumatoid arthritis without rheumatoid factor, unspecified site (principal); M18.0 Bilateral primary osteoarthritis of first carpometacarpal joints; M35.7 Hypermobility syndrome; Z79.899 Other long term (current) drug therapy
CPT/HCPCS: 36415; 80053; 85025

== ENCOUNTER → 2023-12-25 | Outpatient (CLI) | payer MEDICARE, OTHER, SELFPAY ==
[2018-03-05 11:27] VITALS: BMI 25.6
[2023-12-25 15:51] LABS: Absolute Lymphocyte Count 2.31 X10^3/uL (0.83-4.51); Absolute Neutrophil Count 2.5 X10^3/uL (2.0-7.7); Basophil# 0.05 X10^3/uL; Basophil% 0.9 % (0-1); Eosinophil# 0.26 X10^3/uL; Eosinophils% 4.7 % (0-5); Hematocrit 36.9 % (37-47); Hemoglobin 12.4 g/dL (12.0-15.0); Lymphocyte # 2.31 X10^3/ul (0.83-4.51); Lymphocyte % 42.2 % (19-41); Mean Corp Hgb Conc 33.6 g/dL (32-36); Mean Corpuscular Hgb 31.9 pg (27.0-32.0); Mean Corpuscular Volume 94.9 fL (81-99); Mean Platelet Vol. 9.3 fl (6.2-12.0); Monocyte# 0.38 X10^3/uL; Monocyte% 6.9 % (0-10); NRBC Flagged by Analyzer 0 % (0-5); Neutrophil # 2.47 X10^3/uL (2.7-7.7); Neutrophil % 45.1 % (47-70); Platelet Count 280 K/mm3 (150-450); RBC Distribution Width CV 14.1 % (11.6-14.6); RBC Distribution Width SD 48.2 fl (35.1-43.9); Red Blood Count 3.89 M/mm3 (4.2-5.4); White Blood Count 5.5 K/mm3 (4.4-11.0)
[2023-12-25 16:30] LABS: ALB/GLOB Ratio 1.1 RATIO (0.9-2.4); AST(SGOT) 24 U/L (15-37); Alanine Aminotransfer ALT/SGPT 30 U/L (13-56); Albumin, Serum 3.9 g/dL (3.2-5.0); Alkaline Phosphatase 74 U/L (45-117); Anion Gap 6 (5-15); BUN 27 mg/dL (7-18); Calcium,Total 8.9 mg/dL (8.5-10.1); Chloride 107 mmol/L (98-107); Creatinine, Serum 1.08 mg/dL (0.55-1.02); EST Glomerular Filtration Rate 52 mL/min (>60); Est Glom Filt Rate - Afr Amer 63 mL/min (>60); Globulin 3.7 g/dL (2.2-4.2); Glucose 150 mg/dL (74-106); Potassium 4.4 mmol/L (3.5-5.1); Protein, Total 7.6 g/dL (6.4-8.2); Sodium Level 138 mmol/L (136-145)
== END | disposition home or self-care (01) ==
LOC: LAB 15:25
PROVIDERS: PCP Family Medicine; Referring Provider Internal Medicine Rheumatology; Visit Provider Internal Medicine Rheumatology
DX: M06.00 Rheumatoid arthritis without rheumatoid factor, unspecified site (principal); M18.0 Bilateral primary osteoarthritis of first carpometacarpal joints; Z79.899 Other long term (current) drug therapy
CPT/HCPCS: 36415; 80053; 85025

== ENCOUNTER → 2023-12-30 | Outpatient (CLI) | payer MEDICARE, OTHER, SELFPAY ==
[2018-03-05 11:27] VITALS: BMI 25.6
--- NOTE | 2023-12-30 12:36 | RAD_ITS ---
STUDY: X-RAY - ACUTE ABDOMINAL SERIES REASON FOR EXAM: Female, 78 years old. LUQ pain TECHNIQUE: Single view of the chest. Supine, and erect view(s) of the abdomen were obtained. COMPARISON: 02/07/2021 FINDINGS: The lungs are clear and expanded. Normal size heart. Normal mediastinum and celia. Normal visualized pulmonary arteries. Normal visualized aortic arch and descending thoracic aorta. There is a non-specific bowel gas pattern. The soft tissue structures of the abdomen and pelvis are unremarkable. Mild levoscoliosis lumbar spine with degenerative disc disease. RAD/Acute Abdomen Inc Chest IMPRESSION: Normal x-ray examination of the chest, abdomen, and pelvis. Electronically Signed: Chaz Metzger MD at 13:36 EDT ,
== END | disposition home or self-care (01) ==
PROVIDERS: PCP Family Medicine; Referring Provider Family Medicine; Visit Provider Family Medicine
DX: R10.32 Left lower quadrant pain (principal)
CPT/HCPCS: 74022

== ENCOUNTER → 2024-03-04 | Outpatient (CLI) | payer MEDICARE, OTHER, SELFPAY ==
[2018-03-05 11:27] VITALS: BMI 25.6
[2024-03-04 12:17] LABS: Absolute Lymphocyte Count 1.86 X10^3/uL (0.83-4.51); Absolute Neutrophil Count 2.2 X10^3/uL (2.0-7.7); Basophil# 0.08 X10^3/uL; Basophil% 1.6 % (0-1); Eosinophil# 0.27 X10^3/uL; Eosinophils% 5.5 % (0-5); Hematocrit 35.3 % (37-47); Hemoglobin 11.6 g/dL (12.0-15.0); Lymphocyte # 1.86 X10^3/ul (0.83-4.51); Mean Corp Hgb Conc 32.9 g/dL (32-36); Mean Corpuscular Hgb 32.2 pg (27.0-32.0); Mean Corpuscular Volume 98.1 fL (81-99); Mean Platelet Vol. 10.2 fl (6.2-12.0); Monocyte# 0.44 X10^3/uL; NRBC Flagged by Analyzer 0.4 % (0-5); Neutrophil # 2.22 X10^3/uL (2.7-7.7); Neutrophil % 45.5 % (47-70); Platelet Count 298 K/mm3 (150-450); RBC Distribution Width CV 12.8 % (11.6-14.6); RBC Distribution Width SD 46.1 fl (35.1-43.9); White Blood Count 4.9 K/mm3 (4.4-11.0)
[2024-03-04 12:31] LABS: Vitamin D,25 Hydroxy 28.4 ng/mL
[2024-03-04 12:38] LABS: ALB/GLOB Ratio 1.1 RATIO (0.9-2.4); AST(SGOT) 19 U/L (15-37); Alanine Aminotransfer ALT/SGPT 20 U/L (13-56); Albumin, Serum 3.5 g/dL (3.2-5.0); Alkaline Phosphatase 70 U/L (45-117); Anion Gap 5 (5-15); BUN 16 mg/dL (7-18); BUN/Creat Ratio 21.4 RATIO (10-20); Chloride 111 mmol/L (98-107); Creatinine, Serum 0.75 mg/dL (0.55-1.02); EST Glomerular Filtration Rate 80 mL/min (>60); Est Glom Filt Rate - Afr Amer 97 mL/min (>60); Globulin 3.3 g/dL (2.2-4.2); Glucose 99 mg/dL (74-106); Potassium 4.5 mmol/L (3.5-5.1); Protein, Total 6.8 g/dL (6.4-8.2); Sodium Level 141 mmol/L (136-145)
== END | disposition home or self-care (01) ==
PROVIDERS: PCP Family Medicine; Visit Provider Family Medicine
DX: R53.83 Other fatigue (principal); M81.0 Age-related osteoporosis without current pathological fracture
CPT/HCPCS: 36415; 80053; 82306; 84443; 85025

== ENCOUNTER → 2024-03-21 | Outpatient (CLI) | payer MEDICARE, OTHER, SELFPAY ==
[2018-03-05 11:27] VITALS: BMI 25.6
[2024-03-21 18:02] LABS: ALB/GLOB Ratio 0.9 RATIO (0.9-2.4); AST(SGOT) 16 U/L (15-37); Alanine Aminotransfer ALT/SGPT 23 U/L (13-56); Albumin, Serum 3.5 g/dL (3.2-5.0); Alkaline Phosphatase 75 U/L (45-117); Anion Gap 6 (5-15); BUN 20 mg/dL (7-18); BUN/Creat Ratio 24.5 RATIO (10-20); Calcium,Total 9.1 mg/dL (8.5-10.1); Chloride 107 mmol/L (98-107); Creatinine, Serum 0.82 mg/dL (0.55-1.02); EST Glomerular Filtration Rate 72 mL/min (>60); Est Glom Filt Rate - Afr Amer 87 mL/min (>60); Globulin 3.8 g/dL (2.2-4.2); Glucose 83 mg/dL (74-106); Potassium 3.9 mmol/L (3.5-5.1); Protein, Total 7.3 g/dL (6.4-8.2); Sodium Level 139 mmol/L (136-145)
[2024-03-21 18:05] LABS: Absolute Lymphocyte Count 2.09 X10^3/uL (0.83-4.51); Absolute Neutrophil Count 2.6 X10^3/uL (2.0-7.7); Basophil# 0.05 X10^3/uL; Basophil% 0.9 % (0-1); Eosinophil# 0.18 X10^3/uL; Eosinophils% 3.4 % (0-5); Hematocrit 34.7 % (37-47); Hemoglobin 11.2 g/dL (12.0-15.0); Lymphocyte # 2.09 X10^3/ul (0.83-4.51); Lymphocyte % 39.1 % (19-41); Mean Corp Hgb Conc 32.3 g/dL (32-36); Mean Corpuscular Hgb 32.3 pg (27.0-32.0); Mean Platelet Vol. 9.8 fl (6.2-12.0); Monocyte# 0.38 X10^3/uL; Monocyte% 7.1 % (0-10); NRBC Flagged by Analyzer 0 % (0-5); Neutrophil # 2.63 X10^3/uL (2.7-7.7); Neutrophil % 49.1 % (47-70); Platelet Count 223 K/mm3 (150-450); RBC Distribution Width CV 12.8 % (11.6-14.6); RBC Distribution Width SD 45.8 fl (35.1-43.9); Red Blood Count 3.47 M/mm3 (4.2-5.4); White Blood Count 5.4 K/mm3 (4.4-11.0)
== END | disposition home or self-care (01) ==
PROVIDERS: PCP Family Medicine; Referring Provider Internal Medicine Rheumatology; Visit Provider Internal Medicine Rheumatology
DX: M06.00 Rheumatoid arthritis without rheumatoid factor, unspecified site (principal); M18.0 Bilateral primary osteoarthritis of first carpometacarpal joints; Z79.899 Other long term (current) drug therapy
CPT/HCPCS: 36415; 80053; 85025

== ENCOUNTER → 2024-10-18 | Outpatient (CLI) | payer MEDICARE, OTHER, SELFPAY ==
[2018-03-05 11:27] VITALS: BMI 25.6
[2024-10-18 15:32] LABS: Absolute Lymphocyte Count 2.95 X10^3/uL (0.83-4.51); Absolute Neutrophil Count 3.7 X10^3/uL (2.0-7.7); Basophil# 0.07 X10^3/uL; Basophil% 0.9 % (0-1); Eosinophil# 0.25 X10^3/uL; Eosinophils% 3.3 % (0-5); Hematocrit 39.5 % (37-47); Hemoglobin 13.2 g/dL (12.0-15.0); Lymphocyte # 2.95 X10^3/ul (0.83-4.51); Lymphocyte % 38.7 % (19-41); Mean Corp Hgb Conc 33.4 g/dL (32-36); Mean Corpuscular Hgb 31.7 pg (27.0-32.0); Mean Platelet Vol. 10.2 fl (6.2-12.0); Monocyte# 0.66 X10^3/uL; Monocyte% 8.7 % (0-10); NRBC Flagged by Analyzer 0 % (0-5); Neutrophil # 3.68 X10^3/uL (2.7-7.7); Neutrophil % 48.3 % (47-70); Platelet Count 274 K/mm3 (150-450); RBC Distribution Width CV 13.2 % (11.6-14.6); RBC Distribution Width SD 45.1 fl (35.1-43.9); Red Blood Count 4.16 M/mm3 (4.2-5.4); White Blood Count 7.6 K/mm3 (4.4-11.0)
[2024-10-18 15:58] LABS: ALB/GLOB Ratio 1.3 RATIO (0.9-2.4); AST(SGOT) 23 U/L (<=31); Alanine Aminotransfer ALT/SGPT 16 U/L (<=34); Albumin, Serum 4.4 g/dL (3.4-4.8); Alkaline Phosphatase 82 U/L (35-104); Anion Gap 13 (5-15); BUN 16 mg/dL (4-19); BUN/Creat Ratio 22.9 RATIO (10-20); Calcium,Total 9.7 mg/dL (7.6-11.0); Carbon Dioxide 24.1 mmol/L (21.0-32.0); Chloride 103 mmol/L (98-108); Creatinine, Serum 0.71 mg/dL (0.70-1.20); EST Glomerular Filtration Rate 88 (>60); Globulin 3.3 g/dL (2.2-4.2); Glucose 87 mg/dL (70-99); Potassium 4.4 mmol/L (3.3-5.1); Protein, Total 7.7 g/dL (5.9-8.4); Sodium Level 140 mmol/L (133-145); Total Bilirubin 0.38 mg/dL (0.00-1.30)
== END | disposition home or self-care (01) ==
LOC: MTLAB 12:55
PROVIDERS: PCP Family Medicine; Referring Provider Internal Medicine Rheumatology; Visit Provider Internal Medicine Rheumatology
DX: M06.00 Rheumatoid arthritis without rheumatoid factor, unspecified site (principal); Z79.899 Other long term (current) drug therapy
CPT/HCPCS: 36415; 80053; 85025

== ENCOUNTER → 2024-10-18 | Outpatient (CLI) | payer MEDICARE, OTHER, SELFPAY ==
[2018-03-05 11:27] VITALS: BMI 25.6
[2024-10-18 19:28] LABS: Vitamin B12 365 pg/mL (180-914); Vitamin D,25 Hydroxy 29.3 ng/mL (30-100)
== END | disposition home or self-care (01) ==
LOC: MFPLAB 14:34
PROVIDERS: PCP Family Medicine; Referring Provider Family Medicine; Visit Provider Family Medicine
DX: E53.8 Deficiency of other specified B group vitamins (principal); R79.89 Other specified abnormal findings of blood chemistry
CPT/HCPCS: 36415; 82306; 82607

== ENCOUNTER → 2025-01-19 | Outpatient (CLI) | payer MEDICARE, OTHER, SELFPAY ==
[2018-03-05 11:27] VITALS: BMI 25.6
[2025-01-19 10:25] LABS: Hematocrit 34.9 % (37-47); Hemoglobin 11.6 g/dL (12.0-15.0); Immature Granulocytes Count 0.020 X10^3/uL (0.0-0.0); Mean Corp Hgb Conc 33.2 g/dL (32-36); Mean Corpuscular Volume 96.7 fL (81-99); Mean Platelet Vol. 10.0 fl (6.2-12.0); NRBC Flagged by Analyzer 0 % (0-5); Platelet Count 243 K/mm3 (150-450); RBC Distribution Width CV 13.8 % (11.6-14.6); RBC Distribution Width SD 49.0 fl (35.1-43.9); Red Blood Count 3.61 M/mm3 (4.2-5.4); White Blood Count 5.0 K/mm3 (4.4-11.0)
[2025-01-19 10:42] LABS: AST(SGOT) 24 U/L (<=31); Alanine Aminotransfer ALT/SGPT 14 U/L (<=34); Albumin, Serum 4.4 g/dL (3.4-4.8); Alkaline Phosphatase 76 U/L (35-104); Anion Gap 10 (5-15); BUN 20 mg/dL (4-19); BUN/Creat Ratio 23.8 RATIO (10-20); Calcium,Total 9.1 mg/dL (7.6-11.0); Carbon Dioxide 24.1 mmol/L (21.0-32.0); Chloride 106 mmol/L (98-108); Globulin 2.8 g/dL (2.2-4.2); Glucose 104 mg/dL (70-99); Potassium 4.3 mmol/L (3.3-5.1)
== END | disposition home or self-care (01) ==
LOC: MTLAB 08:34
PROVIDERS: PCP Family Medicine; Referring Provider Internal Medicine Rheumatology; Visit Provider Internal Medicine Rheumatology
DX: M06.00 Rheumatoid arthritis without rheumatoid factor, unspecified site (principal); M18.0 Bilateral primary osteoarthritis of first carpometacarpal joints; Z79.899 Other long term (current) drug therapy
CPT/HCPCS: 36415; 80053; 85025

== ENCOUNTER → 2025-01-23 | Outpatient (CLI) | payer MEDICARE, OTHER, SELFPAY ==
[2018-03-05 11:27] VITALS: BMI 25.6
--- NOTE | 2025-01-23 12:15 | RAD_ITS ---
PROCEDURE: PELVIS 1 OR 2 VIEWS 01/23/2025 REASON FOR EXAM: ATT: SACRUM, STATUS POST FALL TECHNIQUE: PELVIS 1 OR 2 VIEWS COMPARISON: None FINDINGS: AP pelvic view was obtained. The sacrum is suboptimally visualized due to overlying bowel gas and fecal material within the rectum obscuring this region. Diffuse osteopenia of the bony pelvis and sacrum are noted. No obvious displaced fractures are seen. Degenerative changes of the lower lumbar spine are noted. 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 Mild osteoarthritic changes are seen involving the pubic symphysis. Mild osteoarthritic changes are seen involving both hips. Moderate amount of stool and gas is present throughout the visualized colon. RAD/Pelvis 1 or 2 Views IMPRESSION: The sacrum is suboptimally visualized due to overlying bowel gas and fecal mate rial within the colon. No obvious abnormality is seen. If clinically warranted or if symptoms persist, CT examination may be of value for further evaluation and in order to exclude an occult fracture. Reading Location: [id number]
--- NOTE | 2025-01-23 12:15 | RAD_ITS ---
PROCEDURE: PELVIS 1 OR 2 VIEWS 01/23/2025 REASON FOR EXAM: ATT: SACRUM, STATUS POST FALL TECHNIQUE: PELVIS 1 OR 2 VIEWS COMPARISON: None FINDINGS: AP pelvic view was obtained. The sacrum is suboptimally visualized due to overlying bowel gas and fecal material within the rectum obscuring this region. Diffuse osteopenia of the bony pelvis and sacrum are noted. No obvious displaced fractures are seen. Degenerative changes of the lower lumbar spine are noted. 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 Mild osteoarthritic changes are seen involving the pubic symphysis. Mild osteoarthritic changes are seen involving both hips. Moderate amount of stool and gas is present throughout the visualized colon. RAD/Pelvis 1 or 2 Views IMPRESSION: The sacrum is suboptimally visualized due to overlying bowel gas and fecal mate rial within the colon. No obvious abnormality is seen. If clinically warranted or if symptoms persist, CT examination may be of value for further evaluation and in order to exclude an occult fracture. Reading Location: [id number]
== END | disposition home or self-care (01) ==
LOC: RAD 12:11
PROVIDERS: PCP Family Medicine; Referring Provider Internal Medicine Rheumatology; Visit Provider Internal Medicine Rheumatology
DX: M06.00 Rheumatoid arthritis without rheumatoid factor, unspecified site (principal); I48.0 Paroxysmal atrial fibrillation; M18.0 Bilateral primary osteoarthritis of first carpometacarpal joints; M35.7 Hypermobility syndrome; H81.03 Meniere's disease, bilateral; I25.10 Atherosclerotic heart disease of native coronary artery without angina pectoris; E78.5 Hyperlipidemia, unspecified; Z79.899 Other long term (current) drug therapy
CPT/HCPCS: 72170

== ENCOUNTER → 2025-03-27 | Outpatient (CLI) | payer MEDICARE, OTHER, SELFPAY ==
[2018-03-05 11:27] VITALS: BMI 25.6
[2025-03-27 09:24] LABS: Hematocrit 34.4 % (37-47); Hemoglobin 11.9 g/dL (12.0-15.0); Immature Granulocytes Count 0.020 X10^3/uL (0.0-0.0); Mean Corp Hgb Conc 34.6 g/dL (32-36); Mean Corpuscular Volume 96.4 fL (81-99); Mean Platelet Vol. 9.8 fl (6.2-12.0); NRBC Flagged by Analyzer 0 % (0-5); Platelet Count 237 K/mm3 (150-450); RBC Distribution Width CV 13.5 % (11.6-14.6); RBC Distribution Width SD 48.2 fl (35.1-43.9); Red Blood Count 3.57 M/mm3 (4.2-5.4); White Blood Count 5.6 K/mm3 (4.4-11.0)
[2025-03-27 10:49] LABS: AST(SGOT) 21 U/L (<=31); Alanine Aminotransfer ALT/SGPT 13 U/L (<=34); Albumin, Serum 4.1 g/dL (3.4-4.8); Alkaline Phosphatase 66 U/L (35-104); Anion Gap 10 (5-15); BUN 18 mg/dL (4-19); BUN/Creat Ratio 26.4 RATIO (10-20); Calcium,Total 9.2 mg/dL (7.6-11.0); Carbon Dioxide 22.9 mmol/L (21.0-32.0); Chloride 106 mmol/L (98-108); Globulin 3.0 g/dL (2.2-4.2); Glucose 101 mg/dL (70-99); Potassium 4.3 mmol/L (3.3-5.1)
== END | disposition home or self-care (01) ==
LOC: LAB 08:30
PROVIDERS: PCP Family Medicine; Referring Provider Internal Medicine Rheumatology; Visit Provider Internal Medicine Rheumatology
DX: M06.00 Rheumatoid arthritis without rheumatoid factor, unspecified site (principal); M18.0 Bilateral primary osteoarthritis of first carpometacarpal joints; Z79.899 Other long term (current) drug therapy
CPT/HCPCS: 36415; 80053; 85025